=== PATIENT | female | born 1950 | race Two or more races ===

== ENCOUNTER 2020-07-08 12:14 | Observation (INO) | payer MEDICARE ==
--- NOTE | 2020-07-08 13:35 | XR ---
EXAMINATION TYPE: XR foot complete RT DATE OF EXAM: 07/08/2020 CLINICAL HISTORY: pain TECHNIQUE: Frontal, lateral and oblique images of the right foot are obtained. COMPARISON: None. FINDINGS: There is no acute fracture/dislocation evident. The joint spaces appear within normal le[place] its. The overlying soft tissue appears unremarkable. IMPRESSION: There is no acute fracture or dislocation. ICD 10 NO FRACTURE, INITIAL EVALUATION
[2020-07-08] MEDS ORDERED: RX INFO: IV CONTRAST WAS GIVEN 1 EACH MISC MISCELLANE PRN (14:56)
[2020-07-08 15:02] LABS: Basophils % (A) 1 %; Eosinophils # (A) 0.4 k/uL (0-0.7); Eosinophils % (A) 5 %; HCT 40.9 % (34.0-46.0); HGB 13.7 gm/dL (11.4-16.0); Lymphocytes # (A) 2.1 k/uL (1.0-4.8); Lymphocytes % (A) 29 %; MCH 28.5 pg (25.0-35.0); MCHC 33.5 g/dL (31.0-37.0); MCV 85.2 fL (80.0-100.0); Mean Platelet Volume 7.6; Monocytes # (A) 0.3 k/uL (0-1.0); Monocytes % (A) 5 %; Neutrophils # (A) 4.2 k/uL (1.3-7.7); Neutrophils % (A) 58 %; Platelet Count 296 k/uL (150-450); RDW 13.6 % (11.5-15.5); WBC 7.3 k/uL (3.8-10.6)
[2020-07-08] MEDS ORDERED: Acetaminophen-Codeine 300-30mg TAB PO STA (15:02)
[2020-07-08 15:07] LABS: ALT 18 U/L (4-34); AST 40 U/L (14-36); African American GFR (CKD) >90 (>60 ml/min/1.73 sqM); Alkaline Phosphatase 97 U/L (38-126); Anion Gap 7 mmol/L; Blood Urea Nitrogen 11 mg/dL (7-17); Calcium 9.4 mg/dL (8.4-10.2); Carbon Dioxide 25 mmol/L (22-30); Chloride 106 mmol/L (98-107); Glucose 98 mg/dL (74-99); Non-African American GFR(CKD) >90 (>60 ml/min/1.73 sqM); Potassium 4.3 mmol/L (3.5-5.1); Sodium 138 mmol/L (137-145); Total Bilirubin 0.7 mg/dL (0.2-1.3); Total Protein 8.3 g/dL (6.3-8.2)
[2020-07-08 15:09] LABS: Partial Thromboplastin Time 24.2 sec (22.0-30.0); Prothrombin Time 10.1 sec (9.0-12.0)
[2020-07-08] MEDS ORDERED: SODIUM CHLORIDE 0.9% 1,000 ML IV ONE (15:17)
--- NOTE | 2020-07-08 16:10 | ED ---
General Adult HPI - General Chief complaint: Extremity Problem,Nontraumatic Stated complaint: rt foot bruising Time Seen by Provider: 07/08/20 13:32 Source: patient, RN notes reviewed, old records reviewed Mode of arrival: wheelchair Limitations: no limitations - History of Present Illness Initial comments: 69-year-old female patient to ED for evaluation. Patient reports that the second and third toe on her right foot had blown purple and discolored for the last week and a half. She reports that when she lays down and that activity makes it becomes purple. When she walks around the color returned and the pain goes away. She denies any other areas of pain. She denies any other complaints. Systemic: Pt denies fatigue, fever/chills, rash. Pt denies weakness, night sweats, weight loss. Neuro: Pt denies headache, visual disturbances, syncope or pre-syncope. HEENT: Pt denies ocular discharge or irritation, otalgia, rhinorrhea, pha ryngitis or notable lymphadenopathy. Cardiopulmonary: Pt denies chest pain, SOB, heart palpitations, dyspnea on exertion. Abdominal/GI: Pt denies abdominal pain, n/v/d. : Pt denies dysuria, burning w/ urination, frequency/urgency. Denies new onset urinary or bowel incontinence. MSK: Pt denies myalgia, loss of strength or function in extremities. Neuro: Pt denies new onset weakness, paresthesias. - Related Data Allergies Allergy/AdvReac Type Severity Reaction Status Date / Time acetaminophen [From Vicodin] Allergy constipatio Verified 07/08/20 12:51 n celecoxib [From Celebrex] Allergy constipatio Verified 07/08/20 12:51 n hydrocodone [From Vicodin] Allergy constipatio Verified 07/08/20 12:51 n Review of Systems ROS Statement: Those systems with pertinent positive or pertinent negative responses have been documented in the HPI. ROS Other: All systems not noted in ROS Statement are negative. Past Medical History Past Medical History: No Reported History History of Any Multi-Drug Resistant Organisms: None Reported Past Surgical History: Tubal Ligation Past Psychological History: No Psychological Hx Reported Smoking Status: Never smoker Past Alcohol Use History: None Reported Past Drug Use History: None Reported General Exam - General Exam Comments Initial Comments: Constitutional: NAD, AOX3, Pt has pleasant affect. HEENT: NC/AT, trachea midline, neck supple, no lymphadenopathy. External ears appear normal, without discharge. Mucous membranes moist. Eyes PERRLA, EOM intact. There is no scleral icterus. No pallor noted. Cardiopulmonary: RRR, no murmurs, rubs or gallops, no JVD noted. Lungs CTAB in anterior and posterior singletary. No peripheral edema. Abdominal exam: Abdomen soft and non-distended. Abdomen non-tender to palpation in all 4 quadrants. Bowel sounds active in LLQ. No hepatosplenomegaly. No ecchymosis Neuro: CN II-XII grossly intact. No nuchal rigidity. No raccon eyes, no de la vega sign, no hemotympanum. No cervical spinal tenderness. MSK: second third toe on the right foot are purple and cyanotic appearing. Capillary refill is greater than 2 seconds however it is intact. There is tenderness to palpation.No posterior calf tenderness bilaterally, homans sign negative bilaterally. Posterior tibialis and radial pulse +2 bilaterally. Sens ation intact in upper and lower extremities. Full active ROM in upper and lower extremities, 5/5 stregnth. Limitations: no limitations Course Vital Signs 07/08/20 12:46 Temperature 97.5 F L Pulse Rate 81 Respiratory 20 Rate Blood Pressure 147/71 O2 Sat by Pulse 98 Oximetry Medical Decision Making - Medical Decision Making 69-year-old female patient GT for evaluation second third toe on right foot have been verbal cyanotic and painful for the last 10 days or so. Patient once skiagrapher today who recommended that she come to the emergency department b ecause she believed that it was vascular in nature. She will signs are stable, afebrile. EKG is nonischemic. CT angiography was obtained which did display subtotal to complete occlusion spinning the left proximal common iliac. Mean the bilateral trifurcation vessels of the mid leg. There is also a cystic lesion in the right ovary large krause cyst, possible lymphadenopathy around the kidney. Patient be admitted for vascular consultation. Patient was made aware findings. Case discussed and pt seen by Dr. Sims, Dr. Barone accepts admission. - Lab Data Result diagrams: 07/08/20 14:32 07/08/20 14:32 Lab Results 07/08/20 07/08/20 07/08/20 Range/Units 14:32 14:32 14:32 WBC 7.3 (3.8-10.6) k/uL RBC 4.80 (3.80-5.40) m/uL Hgb 13.7 (11.4-16.0) gm/dL Hct 40.9 (34.0-46.0) % MCV 85.2 (80.0-100.0) fL MCH 28.5 (25.0-35.0) pg MCHC 33.5 (31.0-37.0) g/dL RDW 13.6 (11.5-15.5) % Plt Count 296 (150-450) k/uL MPV 7.6 Neutrophils % 58 % Lymphocytes % 29 % Monocytes % 5 % Eosinophils % 5 % Basophils % 1 % Neutrophils # 4.2 (1.3-7.7) k/uL Lymphocytes # 2.1 (1.0-4.8) k/uL Monocytes # 0.3 (0-1.0) k/uL Eosinophils # 0.4 (0-0.7) k/uL Basophils # 0.0 (0-0.2) k/uL PT 10.1 (9.0-12.0) sec INR 1.0 (<1.2) APTT 24.2 (22.0-30.0) sec Sodium 138 (137-145) mmol/L Potassium 4.3 (3.5-5.1) mmol/L Chloride 106 (98-107) mmol/L Carbon Dioxide 25 (22-30) mmol/L Anion Gap 7 mmol/L BUN 11 (7-17) mg/dL Creatinine 0.65 (0.52-1.04) mg/dL Est GFR (CKD-EPI)AfAm >90 (>60 ml/min/1.73 sqM) Est GFR (CKD-EPI)NonAf >90 (>60 ml/min/1.73 sqM) Glucose 98 (74-99) mg/dL Calcium 9.4 (8.4-10.2) mg/dL Total Bilirubin 0.7 (0.2-1.3) mg/dL AST 40 H (14-36) U/L ALT 18 (4-34) U/L Alkaline Phosphatase 97 (38-126) U/L Total Protein 8.3 H (6.3-8.2) g/dL Albumin 4.0 (3.5-5.0) g/dL - EKG Data -: EKG Interpreted by Me (and Dr. Sims ) EKG Comments: Ventricular rate 81, CT interval 140, QRS 82, QT/QTC 386 is 448. Normal sinus rhythm, normal EKG, no concern for acute ischemia. Disposition Clinical Impression: Ischemic toe Disposition: ADMITTED IP TO THIS HOSP Condition: Serious Is patient prescribed a controlled substance at d/c from ED?: No Referrals: None,Stated [Primary Care Provider] - 1-2 days
--- NOTE | 2020-07-08 16:30 | CT ---
EXAMINATION TYPE: CT angio tho/abd W Run Off DATE OF EXAM: 07/08/2020 COMPARISON: NONE HISTORY: 69-year-old female, ischemic toe right foot, Discoloration to right sided toes TECHNIQUE: Contiguous axial scanning of the chest, abdomen and pelvis before and after administration of 125 ml Isovue-370 IV contrast. Bilateral lower extremity runoff was performed. Coronal and sagitt al reformats. 3-D reconstructions generated on a dedicated independent workstation. CT DLP: 1872.6 mGycm Automated exposure control for dose reduction was used. FINDINGS: CHEST: The heart is normal size without pericardial effusion. Aorta normal caliber with conventional vessel branching anatomy. Minimal atherosclerotic arch calcifi cations. No thoracic lymphadenopathy by CT size criteria. Some strandy atelectasis in the lower lungs. No consolidation or pleural effusion. ABDOMEN: Tiny hernia. Arterial phase imaging of the liver shows a lobulated 1.7 cm cyst along the central aspe ct of the liver. Early arterial phase imaging of the gallbladder, adrenal glands, kidneys, spleen, pa ncreas show no gross abnormality. No dilated small bowel, free fluid, or free air. Retroaortic left renal vein. At this same level, there is abnormal 2.3 x 1.2 cm soft tissue in the ao rtocaval region. Otherwise, no mesenteric or retroperitoneal lymphadenopathy seen. Normal appendix. Mild stool burden. Left-sided colonic diverticulosis, greatest in the sigmoid colon. No pericolonic inflammatory change. Mild to moderate atherosclerotic calcifications infrarenal abdominal aorta without aneurysm. PELVIS: Bladder partially distended. Uterus anteverted. Both ovaries are visualized. However, there is abnorm al complex cystic appearing lesion of the right ovary measuring 3.6 x 3.5 cm. Further pelvic ultrasou nd evaluation is recommended. Pelvic phlebolith. No abnormal fluid collection in the pelvis or pelvic lymphadenopathy. RIGHT: Mild segmental narrowing right common iliac artery secondary to atherosclerotic calcifications. Right external iliac artery is patent. TRAUMA THERAPIST and SFA are patent with minimal scattered atherosclerotic change. Right popliteal artery and tibial peroneal trunk as well as the anterior tibial artery takeoff are al l patent. The trifurcation vessels become diminutive at the midlung level and the peroneal artery is seen to ju st above the ankle. Two-vessel runoff via the anterior and posterior tibial arteries. Prominent degenerative change of the knee. LEFT: There is a 1.2 cm segment of subtotal to complete occlusion of the proximal left common iliac artery with reconstitution just after. Left external iliac artery, TRAUMA THERAPIST, SFA are patent with minimal scattered atelectatic change. Left popliteal artery and tibioperoneal trunk are patent as is the takeoff of the anterior tibial art sara. The trifurcation vessels become diminutive at the midlung level. Peroneal artery is seen to the ankle . Two-vessel runoff via the anterior and posterior tibial arteries. Degenerative changes at the knee. 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 BONES: Facet arthropathy lower lumbar spine. Moderate to advanced degenerative disc disease L4-L5 and L5-S1. IMPRESSION: VASCULATURE: 1. SUBTOTAL TO COMPLETE OCCLUSION SPANNING 1.2 CM INVOLVING THE PROXIMAL LEFT COMMON ILIAC ARTERY. TH E VESSEL RECONSTITUTES JUST AFTER THIS ABNORMAL SEGMENT. 2. ON BOTH SIDES, THE TRIFURCATION VESSELS BECOME DIMINUTIVE AT THE MID LEG LEVEL. PERONEAL ARTERIES ARE SEEN TO THE ANKLE OR JUST ABOVE THE ANKLE AND THERE IS TWO-VESSEL RUNOFF ON BOTH SIDES. MISC: 3. ABNORMAL 2.3 X 1.2 CM SOFT TISSUE IN THE AORTOCAVAL REGION AT THE LEVEL OF THE RETROAORTIC LEFT RE NAL VEIN. ABNORMAL LYMPHADENOPATHY/METASTATIC DISEASE NOT EXCLUDED AT THIS TIME. 4. COMPLEX CYSTIC LESION OF THE RIGHT OVARY MEASURING 3.6 X 2.5 CM. CYSTIC EPITHELIAL OVARIAN NEOPLAS M NOT EXCLUDED. PELVIC ULTRASOUND CAN BETTER CHARACTERIZE. 5. LEFT-SIDED COLONIC DIVERTICULOSIS WITHOUT ACUTE DIVERTICULITIS. DEGENERATIVE CHANGE OF THE KNEES A ND A MODERATE TO LARGE SIZED 6.4 X 4.4 CM WADE'S CYST CYST ON THE LEFT
[2020-07-08] MEDS ORDERED: ASPIRIN 325 MG TAB PO STA (16:47)
[2020-07-08] MEDS ORDERED: NALOXONE 0.4 MG/ML 1 ML VIAL IV PRN (17:46)
[2020-07-08] MEDS ORDERED: HYDROcodone/APAP 5-325MG 1 EACH TAB PO PRN (18:51)
--- NOTE | 2020-07-08 21:23 | P.HPIM ---
History of Present Illness H&P Date: 07/08/20 The patient is a 69-year-old female with no known PMH who presented to emergency room with complaints of right second toe discoloration and pain. The patient reports that her symptoms started a week and half ago and gradually worsened. She reports that the pain occurs anytime that she is not walking, comes on gradually, with her second toe becoming purple and numb at the tip. The pain is 9 out of 10 at maximal intensity, at which time the patient stands up and walks which resolves the discoloration, numbness, and the pain entirely. When the patient sits back down, the pain recurs after 30-45 minutes. She denied any similar prior episodes. The patient notes that she thought it was due to her ingrown toenail for which she went to her receiving associate store earlier today who immediately sent her to the emergency room. At time of the interview, she reported that her pain was a 4 out of 10 after having received medications. She denied any additional complaints. She denied calf or ankle pain. She denied chest pain, shortness of breath, palpitations, cough, fever, chills. Also denied abdominal pain, nausea, vomiting, diarrhea. Foot x-ray in the emergency room was unremarkable. CT angiogram of the thoracic and abdominal aorta with runoff revealed a subtotal to complete proximal left common iliac artery occlusion spanning 1.2 cm, mid level leg diminution of arteries bilaterally, an abnormal 2.3 centimeters soft tissue in the aortocaval region with malignancy not excluded, complex cystic lesion of the right ovary measuring 3.6 cm along with left-sided diverticulosis. EKG revealed normal sinus rhythm at [address]/T-wave changes noted as reviewed by me. Laboratory evaluation was reviewed. Review of Systems Pertinent positives and negatives as discussed in HPI, a complete review of systems was performed and all other systems are negative. Past Medical History Past Medical History: No Reported History History of Any Multi-Drug Resistant Organisms: None Reported Past Surgical History: Tubal Ligation Past Anesthesia/Blood Transfusion Reactions: No Reported Reaction Past Psychological History: No Psychological Hx Reported Smoking Status: Never smoker Past Alcohol Use History: None Reported Past Drug Use History: None Reported Medications and Allergies Home Medications Medication Instructions Recorded Confirmed Type No Known Home Medications 07/08/20 07/08/20 History Allergies Allergy/AdvReac Type Severity Reaction Status Date / Time celecoxib [From Celebrex] AdvReac constipatio Verified 07/08/20 18:52 n hydrocodone [From Vicodin] AdvReac constipatio Verified 07/08/20 18:52 n Physical Exam Vitals: Vital Signs Temp Pulse Pulse Resp BP BP Pulse Ox 07/08/20 19:06 98.6 F 96 16 151/59 96 07/08/20 18:22 98.2 F 77 19 132/70 96 07/08/20 12:46 97.5 F L 81 20 147/71 98 Intake and Output 07/08/20 07/08/20 07/08/20 06:59 14:59 22:59 Other: Weight 74.843 kg 74.843 kg General: non toxic, no distress, appears at stated age, obese Derm: no unusual rashes/lesions no unusual ecchymoses, warm, dry Head: atraumatic, normocephalic, symmetric Eyes: EOMI, no lid lag, anicteric sclera, pupils equal round reactive to light ENT: Nose and ears atraumatic, no thrush, no pharyngeal erythema Neck: No thyromegaly, no cervical lymphadenopathy, trachea midline, supple Mouth: no lip lesion, mucus membranes moist Cardiovascular: S1S2 reg, no murmur, 3+ dorsalis pedis and posterior tibial pulse bilateral, R 2nd toe purple discoloration with numbness and tenderness, surrounding tissue appears normal, no edema Lungs: CTA bilateral, no rhonchi, no rales , no accessory muscle use Abdominal: soft, nontender to palpation, no guarding, no appreciable organomegaly, normal bowel sounds Ext: no gross muscle atrophy, muscle strength 5 out of 5 in all 4 extremities grossly, no contractures, Neuro: CN II-XI grossly intact, light touch intact all 4 extremities, finger to nose within normal limits, Psych: Alert, oriented, appropriate affect Results CBC & Chem 7: 07/08/20 14:32 07/08/20 14:32 Labs: Abnormal Lab Results - Last 24 Hours (Table) 07/08/20 Range/Units 14:32 AST 40 H (14-36) U/L Total Protein 8.3 H (6.3-8.2) g/dL Thrombosis Risk Factor Assmnt - Choose All That Apply Any of the Below Risk Factors Present?: No Other Risk Factors: No Each Risk Factor Represents 2 Points: Age 61-74 years Other congenital or acquired thrombophilia - If yes, enter type in comment: No Thrombosis Risk Factor Assessment Total Risk Factor Score: 2 Thrombosis Risk Factor Assessment Level: Very Low Risk Assessment and Plan Plan: Ischemic R second toe -Discussed case with Vascular surgeon instructional design consultant -- recommended pain control for now. -Continue with Vascular checks -C/w ASA and Statin -Cardiac monitoring -Obtain Lipid panel Complex cyst of right ovary on CT angiogram with 2.3 cm aortocaval mass concerning for metastasis -Will refer patient for outpatient [employer]-Oncology evaluation (Dr Kwesi Hdz @ [facility]) DVT prophylaxis -Heparin subq The patient is admitted with an anticipated less than 2 midnight stay for evaluation of R ischemic toe CODE STATUS: Full Code Discussed with: Patient Anticipated discharge date: in am Anticipated discharge place: Home A total of 35 minutes was spent on the care of this complex patient more than 50% of the time was spent in counseling and care coordination.
[2020-07-08] MEDS ORDERED: traMADol 50 MG TAB PO STA (22:45)
[2020-07-08] MEDS: HEPARIN SODIUM,PORCINE 5,000 UNIT/ML 1 ML VIAL SQ SCH (22:52)
[2020-07-08] MEDS ORDERED: ATORVASTATIN 80 MG TAB PO ONE (23:00)
[2020-07-09] MEDS: HEPARIN SODIUM,PORCINE 5,000 UNIT/ML 1 ML VIAL SQ SCH ×2 (07:36→15:38)
[2020-07-09 08:54] LABS: Cholesterol 209 mg/dL (<200); HDL Cholesterol 55 mg/dL (40-60); LDL Cholesterol,Calculated 135 mg/dL (0-99); Triglycerides 94 mg/dL (<150)
--- NOTE | 2020-07-09 09:19 | P.GSCN ---
History of Present Illness Consult date: 07/09/20 Reason for Consult: Ischemic toes on right foot Requesting physician: Ramo Sher History of present illness: The patient is a 69-year-old female with no known PMH who presented to emergency room with complaints of right second toe discoloration and pain. The patient reports that her symptoms started a week and half ago and gradually worsened. She reports that the pain occurs anytime that she is not walking, comes on gradually, with her second toe becoming purple and numb at the tip. The pain is 9 out of 10 at maximal intensity, at which time the patient stands up and walks which resolves the discoloration, numbness, and the pain entirely. The patient states when she sits the pain returns. She denied any similar prior episodes. The patient notes that she thought it was due to her ingrown toenail for which she went to her medical technicians earlier today who immediately sent her to the emergency room. She denied any additional complaints. He denies any pain anywhere else in the right lower extremity, as well as denies any pain in the left lower extremity. She denied chest pain, shortness of breath, palpitations, cough, fever, chills. Also denied abdominal pain, nausea, vomiting, diarrhea. Foot x-ray in the emergency room was unremarkable. CT angiogram of the thoracic and abdominal aorta with runoff revealed a subtotal to complete proximal left common iliac artery occlusion spanning 1.2 cm, which reconstitutes just after this abnormal segment. On both sides there is trifurcation vessels become communicative at the midline level. Peroneal arteries are seen to the ankle or just above the ankle and there is two-vessel runoff on both sides. There is an abnormal 2.3 centimeters soft tissue in the aortocaval region with malignancy not excluded, complex cystic lesion of the right ovary measuring 3.6 cm along with left-sided diverticulosis. There is a 6. 4 x 4 x 4 cm moderate to large size Wade's cyst in the left knee. Laboratory evaluation was reviewed. Denies any other current symptoms such as shortness of breath, chest pain, or abdominal pain. Review of Systems A 14 point review of systems was completed and all pertinent positives and negat mike as stated in the HPI. Past Medical History Past Medical History: No Reported History History of Any Multi-Drug Resistant Organisms: None Reported Past Surgical History: Tubal Ligation Past Anesthesia/Blood Transfusion Reactions: No Reported Reaction Past Psychological History: No Psychological Hx Reported Smoking Status: Never smoker Past Alcohol Use History: None Reported Past Drug Use History: None Reported Medications and Allergies Home Medications Medication Instructions Recorded Confirmed Type No Known Home Medications 07/08/20 07/08/20 History Allergies Allergy/AdvReac Type Severity Reaction Status Date / Time celecoxib [From Celebrex] AdvReac constipatio Verified 07/08/20 18:52 n hydrocodone [From Vicodin] AdvReac constipatio Verified 07/08/20 18:52 n Surgical - Exam Vital Signs Temp Pulse Resp BP Pulse Ox 97.5 F L 81 20 147/71 98 07/08/20 12:46 07/08/20 12:46 07/08/20 12:46 07/08/20 12:46 07/08/20 12:46 General appearance: The patient is alert, oriented, in no acute distress. HET: Head is normocephalic and atraumatic. Pupils are equal and reactive. Oropharynx is clear without lesions. Neck: Supple without lymphadenopathy. Trachea midline. Heart: S1 S2. Regular rate and rhythm. Lungs: No crackles or wheezes are heard. Abdomen: Soft, nontender, nondistended with bowel sounds. Extremities: Bilateral posterior tibialis and dorsalis pedis palpable, however right greater than left. Capillary refill adequate at 3-5 seconds. The right foot second and third toe with purple discoloration and pain to palpation. Neurological: No focal deficits. Strength and sensation are grossly intact. Results CT angiogram thoracic and abdomen with runoff reviewed Right foot x-ray reviewed - Labs 07/08/20 14:32 07/08/20 14:32 Abnormal Lab Results - Last 24 Hours (Table) 07/08/20 07/09/20 Range/Units 14:32 07:52 AST 40 H (14-36) U/L Total Protein 8.3 H (6.3-8.2) g/dL Cholesterol 209 H (<200) mg/dL LDL Cholesterol, Calc 135 H (0-99) mg/dL Diabetes panel 07/08/20 07/09/20 Range/Units 14:32 07:52 Sodium 138 (137-145) mmol/L Potassium 4.3 (3.5-5.1) mmol/L Chloride 106 (98-107) mmol/L Carbon Dioxide 25 (22-30) mmol/L BUN 11 (7-17) mg/dL Creatinine 0.65 (0.52-1.04) mg/dL Glucose 98 (74-99) mg/dL Calcium 9.4 (8.4-10.2) mg/dL AST 40 H (14-36) U/L ALT 18 (4-34) U/L Alkaline Phosphatase 97 (38-126) U/L Total Protein 8.3 H (6.3-8.2) g/dL Albumin 4.0 (3.5-5.0) g/dL Triglycerides 94 (<150) mg/dL HDL Cholesterol 55 (40-60) mg/dL Calcium panel 07/08/20 Range/Units 14:32 Calcium 9.4 (8.4-10.2) mg/dL Albumin 4.0 (3.5-5.0) g/dL Pituitary panel 07/08/20 Range/Units 14:32 Sodium 138 (137-145) mmol/L Potassium 4.3 (3.5-5.1) mmol/L Chloride 106 (98-107) mmol/L Carbon Dioxide 25 (22-30) mmol/L BUN 11 (7-17) mg/dL Creatinine 0.65 (0.52-1.04) mg/dL Glucose 98 (74-99) mg/dL Calcium 9.4 (8.4-10.2) mg/dL Adrenal panel 07/08/20 Range/Units 14:32 Sodium 138 (137-145) mmol/L Potassium 4.3 (3.5-5.1) mmol/L Chloride 106 (98-107) mmol/L Carbon Dioxide 25 (22-30) mmol/L BUN 11 (7-17) mg/dL Creatinine 0.65 (0.52-1.04) mg/dL Glucose 98 (74-99) mg/dL Calcium 9.4 (8.4-10.2) mg/dL Total Bilirubin 0.7 (0.2-1.3) mg/dL AST 40 H (14-36) U/L ALT 18 (4-34) U/L Alkaline Phosphatase 97 (38-126) U/L Total Protein 8.3 H (6.3-8.2) g/dL Albumin 4.0 (3.5-5.0) g/dL Assessment and Plan Assessment: 1. Pain and right foot and toes 2. Discoloration of the second and third toes of the right foot 3. 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 Lozano. There are bilateral palpable pedal pulses. This is likely more related to microvascular, possible underlying infection from ingrown toenail. Will consult Dr. Cruz with podiatry. There are no acute findings to suggest any immediate need for any vascular surgical intervention. Further recommendations will follow. Thank you For this consultation and allowing us take part in the plan of care of your patient during her hospital stay. The impression and plan of care has been dictated as directed. Dr. Lozano I performed a history and examination of this patient, discussed the same with the dictator. I agree with the dictator's note ,documented as a scribe. Any additional findings or plans will be noted.
[2020-07-09] MEDS: HYDROcodone/APAP 10-325MG 1 EACH TAB PO PRN ×2 (11:17→17:29)
--- NOTE | 2020-07-09 16:04 | P.PN ---
Subjective Progress Note Date: 07/09/20 (delayed charting seen at 1030) Principal diagnosis: left toe pain Patient is a 69-year-old female with no known medical history who presented to the emergency department with complaints of right second toe pain and discoloration. She had presented to an outpatient psychiatrist who recommended she come to the ER. In the ER she underwent an extensive evaluation. Initial vital signs within normal limits, initial laboratory analysis was unremarkable. 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 A complex cystic lesion of the right ovary and left sided colonic diverticulosis. She was admitted for monitoring of her ischemic toes. She was seen by vascular surgery who felt this is likely related to microvascular possible underlying infection from ingrown toenail. They did not recommend any acute immediate need for vascular surgery intervention but did recommend podiatry consultation. 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 I suggested follow-up with gynecologic oncology. We have been able to make an appointment with Dr. Hdz on 07/14. Patient is unsure if she'll be able to follow up with this. She states even if she had cancer she would not want to do anything about it. I've encouraged her to seek follow-up. I've explained that she likely would benefit from a pelvic ultrasound and assessment of the tumor. She is aware of the possibility of cancer. Patient seen and examined at bedside. She continues to have some toe pain when her feet are raised in the air area in her pain and the discoloration of her toe improves when she is up and walking. She denies any chest pain, nausea, vomiting, weight loss, or abdominal pain. We did have a discussion that ovarian masses do not always cause pain. General: non toxic, no distress, appears older than stated age Derm: Right second and third toe with purplish discoloration, onychomycoses of toenails warm, dry Head: atraumatic, normocephalic, symmetric Eyes: EOMI, no lid lag, anicteric sclera Mouth: no lip lesion, mucus membranes moist Cardiovascular: S1S2 reg, no murmur, positive posterior tibial pulse bilateral, Lungs: CTA bilateral, no rhonchi, no rales , no accessory muscle use Abdominal: soft, nontender to palpation, no guarding, no appreciable orga nomegaly Ext: no gross muscle atrophy, no edema, no contractures Neuro: CN II-XI grossly intact, no focal neuro deficits Psych: Alert, oriented, appropriate affect Intractable pain right toes and feet with Kwesi Waters microvascular calcification -Vascular surgery recommendations appreciated -Consult podiatry regarding possible need for toenail removal -Pain control Right ovarian mass with soft tissue density near the aortocaval region -Nursing to prepare disc of computed tomography scan -Appointment made for Dr. Kwesi Hdz on 07/14 -I again reiterated the importance of follow-up with his appointment to the patient. Dyslipidemia -Statin therapy DVT prophylaxis: SCDs Discussed with: Patient, nursing Anticipated discharge: once seen by podiatry Anticipated discharge place: home A total of 45 minutes was spent on the care of this complex patient more than 50% of the time was spent in counseling and care coordination. Objective - Vital Signs Vital signs: Vital Signs Temp 97.8 F 07/09/20 14:46 Pulse 82 07/09/20 14:46 Resp 14 07/09/20 14:46 BP 150/76 07/09/20 14:46 Pulse Ox 98 07/09/20 14:46 Intake & Output 07/08/20 07/09/20 07/09/20 18:59 06:59 18:59 Weight 74.843 kg 74.843 kg Other: Voiding Method Toilet Toilet # Voids 1 2 - Labs CBC & Chem 7: 07/08/20 14:32 07/08/20 14:32 Labs: Abnormal Lab Results - Last 24 Hours (Table) 07/09/20 Range/Units 07:52 Cholesterol 209 H (<200) mg/dL LDL Cholesterol, Calc 135 H (0-99) mg/dL
[2020-07-09] MEDS ORDERED: ATORVASTATIN 80 MG TAB PO SCH (21:00)
[2020-07-10] MEDS: HYDROcodone/APAP 10-325MG 1 EACH TAB PO PRN (00:08)
[2020-07-10] MEDS: HEPARIN SODIUM,PORCINE 5,000 UNIT/ML 1 ML VIAL SQ SCH ×2 (00:09→08:55)
[2020-07-10 04:36] LABS: Hemoglobin A1C 5.4 % (4.0-6.0)
--- NOTE | 2020-07-10 08:40 | P.GSHP ---
History of Present Illness H&P Date: 07/10/20 Chief Complaint: Ischemic right foot he patient is a 69-year-old female with no known PMH who presented to emergency room with complaints of right second toe discoloration and pain. The patient reports that her symptoms started a week and half ago and gradually worsened. S he reports that the pain occurs anytime that she is not walking, comes on gradually, with her second toe becoming purple and numb at the tip. The pain is 9 out of 10 at maximal intensity, at which time the patient stands up and walks which resolves the discoloration, numbness, and the pain entirely. When the patient sits back down, the pain recurs after 30-45 minutes. She denied any similar prior episodes. The patient notes that she thought it was due to her ingrown toenail for which she went to her pecan gatherer earlier today who immediately sent her to the emergency room. At time of the interview, she reported that her pain was a 4 out of 10 after having received medications. She denied any additional complaints. She denied calf or ankle pain. She denied chest pain, shortness of breath, palpitations, cough, fever, chills. Also denied abdominal pain, nausea, vomiting, diarrhea. Foot x-ray in the emergency room was unremarkable. CT angiogram of the thoracic and abdominal aorta with runoff revealed a subtotal to complete proximal left common iliac artery occlusion spanning 1.2 cm, mid level leg diminution of arteries bilaterally, an abnormal 2.3 centimeters soft tissue in the aortocaval region with malignancy not excluded, complex cystic lesion of the right ovary measuring 3.6 cm along with left-sided diverticulosis. EKG revealed normal sinus rhythm at [address]/T-wave changes noted as reviewed by me. Laboratory evaluation was reviewed. - Constitutional Constitutional: Reports as per HPI - EENT Eyes: right as per HPI Ears, nose, mouth and throat: Reports as per HPI - Cardiovascular Comment: Patient has right Cardiovascular: Reports as per HPI - Musculoskeletal Musculoskeletal: Denies myalgias - Integumentary Comment: Patient has ischemic digits of the right second and third toes with mycotic changes to the nails 10 - Neurological Comment: Pain of the right foot secondary to ischemia Past Medical History Past Medical History: No Reported History History of Any Multi-Drug Resistant Organisms: None Reported Past Surgical History: Tubal Ligation Past Anesthesia/Blood Transfusion Reactions: No Reported Reaction Past Psychological History: No Psychological Hx Reported Smoking Status: Never smoker Past Alcohol Use History: None Reported Past Drug Use History: None Reported Medications and Allergies Home Medications Medication Instructions Recorded Confirmed Type No Known Home Medications 07/08/20 07/08/20 History Allergies Allergy/AdvReac Type Severity Reaction Status Date / Time celecoxib [From Celebrex] AdvReac constipatio Verified 07/08/20 18:52 n hydrocodone [From Vicodin] AdvReac constipatio Verified 07/08/20 18:52 n Surgical - Exam Vital Signs Temp Pulse Resp BP Pulse Ox 97.5 F L 81 20 147/71 98 07/08/20 12:46 07/08/20 12:46 07/08/20 12:46 07/08/20 12:46 07/08/20 12:46 - Cardiovascular Pedal pulses diminished nonpalpable no digital hair 10. Digits 2 and 3 of the right foot are ischemic painful - Neurologic pain of digits 23 right ffot - Musculoskeletal grossly intact bilateral Results - Labs 07/08/20 14:32 07/08/20 14:32 Abnormal Lab Results - Last 24 Hours (Table) 07/09/20 Range/Units 07:52 Cholesterol 209 H (<200) mg/dL LDL Cholesterol, Calc 135 H (0-99) mg/dL Diabetes panel 07/09/20 07/09/20 Range/Units 07:52 07:52 Hemoglobin A1c 5.4 (4.0-6.0) % Triglycerides 94 (<150) mg/dL HDL Cholesterol 55 (40-60) mg/dL Assessment and Plan Assessment: ischemic Disease right lower extremities Plan: cosult vascular for treatment discuss findings with patient Time with Patient: Greater than 30
[2020-07-10 09:24] VITALS: BP 162/77; PULSE 82; RESP 16; TEMP 98.1
[2020-07-10] MEDS ORDERED: Acetaminophen-Codeine 300-30mg TAB PO PRN (10:06)
--- NOTE | 2020-07-10 12:17 | P.PN ---
Subjective Progress Note Date: 07/10/20 Patient seen and examined. Overall doing well. Still having some pain in her right second and third toes. Objective - Vital Signs Vital signs: Vital Signs Temp 98.1 F 07/10/20 08:40 Pulse 82 07/10/20 08:40 Resp 16 07/10/20 08:40 BP 162/77 07/10/20 08:40 Pulse Ox 100 07/10/20 08:40 Intake & Output 07/09/20 07/10/20 07/10/20 18:59 06:59 18:59 Other: Voiding Method Toilet Toilet # Voids 2 1 - Exam Patient seen and examined. No acute distress. HEENT is normocephalic, atraumatic, excellent motion intact. Heart is regular. Lungs clear. Abdomen soft, nontender nondistended. Extremity show no clubbing, or edema. There continues to be palpable DP on the right, weakly palpable DP on the left. Cyanotic discoloration to the right second toe worse at the distal tip. Third toe slightly cyanotic, adequate capillary refill. - Labs CBC & Chem 7: 07/08/20 14:32 07/08/20 14:32 Assessment and Plan Assessment: #1 second and third right toe pain #2 toe discoloration #3 likely ovarian mass, cannot rule out malignancy Plan: This patient is wishing to go home, she still continues to believe it feels similar to her ingrown toe nails at that spot. She maintains palpable distal pulses therefore cannot fully exclude a microvascular issue, we will discuss podiatry regarding possibly removing the inguinal canals and if this does not seem to improve then go forth with the second and third toe amputations in the near future. She also really needs to follow up with Communications And Signals Supervisor onc. She seemingly understands this.
--- NOTE | 2020-07-10 17:59 | P.DS ---
Providers Date of admission: 07/08/20 17:48 Expected date of discharge: 07/10/20 Attending physician: Ainsley Sal, Consults: 07/08/20 17:46 Consult Physician Stat Consulting Provider: Delio Bradshaw Consult Reason/Comments: ischemic toe Do you want consulting provider notified?: Yes 07/09/20 08:39 Consult Physician Routine Consulting Provider: Moise Cruz Consult Reason/Comments: right 2nd and 3rd toe ischemia Do you want consulting provider notified?: Yes 07/10/20 09:10 Consult Physician Stat Consulting Provider: Cachorro Moncada Consult Reason/Comments: vascularity of 2nd and 3rd right toes. Do you want consulting provider notified?: Already Contacted Primary care physician: Stated None Hospital Course: Discharge Diagnosis: Intractable pain right toes, possible microvascular disease Right ovarian mass with soft tissue density near the aortocaval region Dyslipidemia Hospital Course: Patient is a 69-year-old female with no known medical history who presented to the emergency department with complaints of right second toe pain and discoloration. She had presented to an outpatient psychiatrist who recommended she come to the ER. In the ER she underwent an extensive evaluation. Initial vital signs within normal limits, initial laboratory analysis was unremarkable. 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 A complex cystic lesion of the right ovary and left sided colonic diverticulosis. She was admitted for monitoring of her ischemic toes. She was seen by vascular surgery who felt this is likely related to microvascular possible underlying infection from ingrown toenail. They did not recommend any acute immediate need for vascular surgery intervention but did recommend podiatry consultation, who recommended treatment by vascular surgery. Case discussed with Dr. Lozano. She has left message for [facility] outpatient fork lift technician regarding removing the inguinal canals, she will follow-up with the patient in the office next week for definitive management of the ischemic toes, with possible amputation if needed. The was a concerning finding of ovarian mass on the CT Aortagram. Extensive disucssion were had with the patient on the need for follow-up as this could be cancer. Patient understands. We have made her an appointment with staff readiness officer/ONC on 07/14. We have made her a copy of her CT scan and faxed the report to Dr. Hdz office. Patient's Tylenol #3 refilled to help with pain while awaiting definitive management of toes. Patient discharged in stable condition. Patient was also noted to have dyslipidemia in conjunction with possible vascular disease noted on the right area and she was started on Lipitor. Patient seen and examined at bedside. Toe pain unchanged, asking to go home, we discussed the significance of the large ovarian cysts with concerns for malignancy as well as soft tissue mass she seems to understand this could be cancerous and that follow-up is important. However she expresses that she may choose not to follow-up. I again reiterated that she needs to follow-up with gynecologic oncology we have already made her an appointment. I encouraged her to go to this appointment. Vital signs reviewed and stable. General: non toxic, no distress, appears at stated age Derm: right second and third toe with purple discoloration, onychomycoses of all toenails warm, dry Head: atraumatic, normocephalic, symmetric Eyes: EOMI, no lid lag, anicteric sclera Mouth: no lip lesion, mucus membranes moist Cardiovascular: S1S2 reg, no murmur, positive posterior tibial pulse bilateral, Lungs: CTA bilateral, no rhonchi, no rales , no accessory muscle use Abdominal: soft, nontender to palpation, no guarding, no appreciable organomegaly Ext: no gross muscle atrophy, no edema, no contractures Neuro: CN II-XI grossly intact, no focal neuro deficits Psych: Alert, oriented, appropriate affect A total of 30 minutes of time were spent preparing this complex discharge summary . Patient Condition at Discharge: Stable Plan - Discharge Summary Discharge Rx Participant: No New Discharge Prescriptions: New Atorvastatin [Lipitor] 80 mg PO HS #30 tab Acetaminophen-Codeine 300-30mg [Tylenol w/codeine #3] 1 each PO Q6HR PRN #28 tab PRN Reason: Pain Discharge Medication List Acetaminophen-Codeine 300-30mg [Tylenol w/codeine #3] 1 each PO Q6HR PRN #28 tab 07/10/20 [Rx] Atorvastatin [Lipitor] 80 mg PO HS #30 tab 07/10/20 [Rx] Follow up Appointment(s)/Referral(s): Jessica Lozano DO [STAFF PHYSICIAN] - 1 Week (Appointment TuesdayJuly 23 at 9AM at [facility] Kwesi Hdz MD [REFERRING] - 07/14/20 3:15 pm (The office is located inside of the cancer center. You will be seen on the first floor -- please look for Radiation Oncology. Dr. Hdz is only in the office once/month and WILL NOT be in the office in July. ) None,Stated [Primary Care Provider] - 1-2 days Activity/Diet/Wound Care/Special Instructions: Activity: as tolerated Diet: heart healthy Special Instructions: Please ensure follow-up for ovarian mass on 07/14. take DISC to follow up appointment Discharge Disposition: HOME SELF-CARE
== END 2020-07-10 14:24 | disposition home or self-care (01) ==
LOC: EC 12:14 → 1SOBS 17:48
PROVIDERS: ADMIT Internal Medicine; ATTEND Internal Medicine
DX: I99.8 Other disorder of circulatory system (principal); N83.291 Other ovarian cyst, right side; M79.674 Pain in right toe(s); E78.5 Hyperlipidemia, unspecified; K57.30 Diverticulosis of large intestine without perforation or abscess without bleeding; I74.5 Embolism and thrombosis of iliac artery; B35.1 Tinea unguium; M71.22 Synovial cyst of popliteal space [Baker], left knee; Z88.5 Allergy status to narcotic agent; Z88.8 Allergy status to other drugs, medicaments and biological substances
CPT/HCPCS: 96372 ×3; 96360; 99285; 36415; 93005; 80061; 80053; 85025; 85610; 85730; 83036; 73630; 75635; 71275; G0378 ×3; J1644 ×3; Q9967

== ENCOUNTER 2020-12-21 21:51 | Inpatient (IN) | payer MEDICARE ==
[2020-12-21] MEDS ORDERED: NALOXONE 0.4 MG/ML 1 ML VIAL IV PRN (23:09)
[2020-12-21] MEDS ORDERED: ONDANSETRON 4 MG/2 ML VIAL IVP PRN (23:09)
--- NOTE | 2020-12-21 23:09 | ED ---
Recheck HPI - General Chief Complaint: Recheck/Abnormal Lab/Rx Stated Complaint: Shoulder Pain Time Seen by Provider: 12/21/20 21:58 Source: patient, EMS, RN notes reviewed, old records reviewed Mode of arrival: EMS Limitations: no limitations - History of Present Illness Initial Comments: This is a 62-year-old female DF for evaluation. Patient presents for evaluation of recheck pain. Metastatic disease cancer pain severe dehydration and malnourishment. Patient transferred for treatment and evaluation. Patient herself states she is resting comfortably MD Complaint: abnormal lab, other (Pain control) -: unknown Returns Today for: persistent/worsening pain related to initial visit Symptoms Since Prior Visit: worsening pain Context: planned re-check Associated Symptoms: none Treatments Prior to Arrival: Given Pain Meds on - Related Data Home Medications Medication Instructions Recorded Confirmed Ibuprofen [Motrin Ib] 800 mg PO Q8H PRN 12/21/20 12/21/20 Allergies Allergy/AdvReac Type Severity Reaction Status Date / Time celecoxib [From Celebrex] AdvReac constipatio Verified 12/21/20 22:11 n hydrocodone [From Vicodin] AdvReac constipatio Verified 12/21/20 22:11 n Review of Systems ROS Statement: Those systems with pertinent positive or pertinent negative responses have been documented in the HPI. ROS Other: All systems not noted in ROS Statement are negative. Past Medical History Past Medical History: No Reported History Additional Past Medical History / Comment(s): Bone cancer, metasteatic cancer, rib fractures History of Any Multi-Drug Resistant Organisms: None Reported Past Surgical History: Tubal Ligation Past Anesthesia/Blood Transfusion Reactions: No Reported Reaction Past Psychological History: No Psychological Hx Reported Smoking Status: Never smoker Past Alcohol Use History: None Reported Past Drug Use History: None Reported General Exam Limitations: no limitations General appearance: alert, in no apparent distress Head exam: Present: atraumatic, normocephalic, normal inspection Eye exam: Present: normal appearance, PERRL, EOMI. Absent: scleral icterus, conjunctival injection, periorbital swelling ENT exam: Present: normal exam, mucous membranes moist Neck exam: Present: normal inspection. Absent: tenderness, meningismus, lymphadenopathy Respiratory exam: Present: normal lung sounds bilaterally. Absent: respiratory distress, wheezes, rales, rhonchi, stridor Cardiovascular Exam: Present: regular rate, normal rhythm, normal heart sounds. Absent: systolic murmur, diastolic murmur, rubs, gallop, clicks GI/Abdominal exam: Present: soft, normal bowel sounds. Absent: distended, tenderness, guarding, rebound, rigid Extremities exam: Present: normal inspection, full ROM, normal capillary refill. Absent: tenderness, pedal edema, joint swelling, calf tenderness Back exam: Present: normal inspection Neurological exam: Present: alert, oriented X3, CN II-XII intact Psychiatric exam: Present: normal affect, normal mood Skin exam: Present: warm, dry, intact, normal color. Absent: rash Course Vital Signs 12/21/20 22:00 Temperature 98.6 F Pulse Rate 110 H Respiratory 18 Rate Blood Pressure 146/87 O2 Sat by Pulse 94 L Oximetry - Reevaluation(s) Reevaluation #1: 12/21/20 23:08 Medical record is reviewed Reevaluation #2: 12/21/20 23:08 Transferring paperwork has been reviewed Reevaluation #3: 12/21/20 23:08 Patient states she feels comfortable currently - Consultations Consultation #1: Spoke with PMH will admit the patient Medical Decision Making - Medical Decision Making 62 female [place] with cancer pain and hypercalcemia dehydration. Patient be admitted for continued fluid resuscitation, pain control Disposition Clinical Impression: Metastatic disease, Cancer associated pain, Hypercalcemia Disposition: ADMITTED IP TO THIS [facility] Condition: Fair Is patient prescribed a controlled substance at d/c from ED?: No Referrals: None,Stated [Primary Care Provider] - 1-2 days
[2020-12-21] MEDS ORDERED: SODIUM CHLORIDE 0.9% 1,000 ML IV STA (23:10)
[2020-12-21] MEDS: DEXTROSE 5%-0.45% NACL 1,000 ML IV SCH (23:54)
[2020-12-21] MEDS: MORPHINE SULFATE 4 MG/ML SYRINGE IV PRN (23:54)
[2020-12-22] MEDS: MORPHINE SULFATE 4 MG/ML SYRINGE IV PRN ×3 (03:28→20:24)
[2020-12-22 05:07] LABS: Basophils # (A) 0.1 k/uL (0-0.2); Basophils % (A) 1 %; Eosinophils # (A) 0.3 k/uL (0-0.7); Eosinophils % (A) 4 %; HCT 34.7 % (34.0-46.0); HGB 11.6 gm/dL (11.4-16.0); Lymphocytes # (A) 1.5 k/uL (1.0-4.8); Lymphocytes % (A) 18 %; MCH 27.3 pg (25.0-35.0); MCHC 33.3 g/dL (31.0-37.0); MCV 81.9 fL (80.0-100.0); Mean Platelet Volume 7.2; Monocytes # (A) 0.5 k/uL (0-1.0); Monocytes % (A) 6 %; Neutrophils # (A) 5.9 k/uL (1.3-7.7); Neutrophils % (A) 70 %; Platelet Count 263 k/uL (150-450); RBC 4.24 m/uL (3.80-5.40); RDW 14.3 % (11.5-15.5); WBC 8.3 k/uL (3.8-10.6)
[2020-12-22 05:33] LABS: Albumin 3.2 g/dL (3.5-5.0); Calcium 11.8 mg/dL (8.4-10.2); Magnesium 1.5 mg/dL (1.6-2.3); Phosphorus 3.6 mg/dL (2.5-4.5); Potassium 3.2 mmol/L (3.5-5.1); Total Bilirubin 0.6 mg/dL (0.2-1.3)
[2020-12-22] MEDS: ENOXAPARIN 40 MG/0.4 ML SYRINGE SQ SCH (10:20)
[2020-12-22] MEDS: DEXTROSE 5%-0.45% NACL 1,000 ML IV SCH (10:49)
[2020-12-22] MEDS ORDERED: ALPRAZolam 0.25 MG TAB PO PRN (11:46)
[2020-12-22] MEDS ORDERED: TEMAZEPAM 15 MG CAP PO PRN (11:46)
[2020-12-22] MEDS ORDERED: Magnesium Replacement Protocol 1 EACH MISC MISCELLANE PRN (11:47)
[2020-12-22] MEDS ORDERED: Potassium Replacement Protocol 1 EACH MISC MISCELLANE PRN (11:47)
[2020-12-22] MEDS: KETOROLAC 15 MG/ML 1 ML VIAL IVP SCH ×2 (13:41→17:22)
[2020-12-22] MEDS: PANTOPRAZOLE 40 MG TABLET PO SCH (13:43)
[2020-12-22] MEDS: IOPAMIDOL CONTRAST (ORAL USE) VIAL PO PRN ×2 (15:09→15:56)
--- NOTE | 2020-12-22 15:33 | XR ---
EXAMINATION TYPE: XR chest 1V portable DATE OF EXAM: 12/22/2020 HISTORY: Shortness of breath. COMPARISON: None. TECHNIQUE: Single view of the chest is submitted. FINDINGS: Demonstrated are scattered senescent parenchymal change. Basilar atelectasis and/or infiltrates. The heart is stable. Hilar and mediastinal structures are within normal limits. Degenerative changes are seen of the dorsal spine. IMPRESSION: 1. Basilar atelectasis and/or infiltrates.
--- NOTE | 2020-12-22 16:14 | HP ---
HISTORY AND PHYSICAL DATE OF SERVICE: 12/22/2020 CHIEF COMPLAINTS: Back pain and shoulder pain. HISTORY OF PRESENT ILLNESS: This 70-year-old woman with a past medical history of multiple medical problems, including history of tubal ligation, was recently diagnosed to have apparently bone cancer. The patient had an ovarian mass as well as soft tissue abdomen. Patient was seen by Dr. Hdz in [facility] and was subsequently was referred to a [place] physician, according to the patient. But now the patient is in severe excruciating pain in the upper back area which is radiating to both sides, and the patient came to [facility] and was admitted for further evaluation and treatment. The patient also has severe dehydration and malnourishment. The patient was transferred for treatment and evaluation. There is no history of any fever, rigor or chills. No history of headache, loss of consciousness, seizures at this time. PAST MEDICAL HISTORY: History of recently diagnosed apparently metastatic ovarian cancer or bone cancer with rib fractures. History of tubal ligation. MEDICATIONS: Motrin 800 mg p.r.n. ALLERGIES: CELEBREX, VICODIN. FAMILY HISTORY: No history of heart disease or strokes in the family. SOCIAL HISTORY: No history of smoking. No history of alcohol intake. REVIEW OF SYSTEMS: ENT: No diminished hearing. No diminished vision. CARDIOVASCULAR SYSTEM: No angina, palpitations. RESPIRATORY SYSTEM: No cough, hemoptysis. GI: No nausea, vomiting, diarrhea. : As mentioned earlier. NERVOUS SYSTEM: No numbness, weakness. ALLERGY/IMMUNOLOGY: No asthma, hayfever. MUSCULOSKELETAL: As mentioned earlier. HEMATOLOGY/ONCOLOGY: No history of anemia. ENDOCRINE: No history of diabetes, hypothyroidism. CONSTITUTIONAL: As mentioned earlier. DERMATOLOGY: Negative. RHEUMATOLOGY: Negative. PSYCHIATRY: As mentioned earlier. PHYSICAL EXAMINATION: Patient alert and oriented x3. Pulse 94, blood pressure 136/80, respiration 18, temperature normal, pulse ox 97% on 2 L. HEENT: Conjunctivae normal. Oral mucosa moist. NECK: No jugular venous distention. No carotid bruit. No lymph node enlargement. CARDIOVASCULAR SYSTEM: S1, S2 muffled. No S3. No S4. RESPIRATORY SYSTEM: Breath sounds diminished at the bases. No rhonchi. No crackles. ABDOMEN: Obese, non-tender. No mass palpable. LEGS: No edema. No swelling. NERVOUS SYSTEM: Higher functions as mentioned earlier. Moves all 4 limbs. No focal motor or sensory deficit. LYMPHATICS: No lymph node palpable in neck, axillae or groin. SKIN: No ulcer, rash, bleeding. JOINTS: No active deforming arthropathy. EXAMINATION OF THE SPINE: Some tenderness in the T4-5 area present. JOINTS: No active deforming arthropathy. LABS: At this time CBC is within normal limits. Sodium 136, potassium 3.2. Calcium is 11.8. ASSESSMENT: 1. Severe back pain, upper back pain. Rule out multiple metastases or vertebral compression fracture. 2. Possible ovarian cancer or intraabdominal cancer with metastases. 3. Hyponatremia. 4. Hypokalemia. 5. Hypercalcemia, possibly secondary to malignancy. 6. Elevated random glucose. Rule out diabetes mellitus, type 2. 7. Hypomagnesemia. 8. Increased AST. 9. Obesity with body mass index 31.2. 10.History of tubal ligation. 11.FULL CODE. DISCUSSION AND RECOMMENDATIONS: In this 70-year-old woman who presented with multiple complex medical issues, we will monitor the patient closely, continue the current medications, continue symptomatic treatment. Otherwise, would recommend adding Toradol to the current regimen. Consult Dr. Calderon. Bone scan. I would also recommend a CT scan of the chest, abdomen and pelvis to ensure stability at this point. Otherwise, portable chest x-ray, DVT prophylaxis. Prognosis is guarded because of multiple complex medical issues. Further recommendations to follow. We will monitor and replace potassium and magnesium as well. MMODL / IJN: [id number] / MTDD
--- NOTE | 2020-12-22 17:27 | CT ---
EXAMINATION TYPE: CT ChestAbdPelvis wo con DATE OF EXAM: 12/22/2020 COMPARISON: CT abdomen pelvis yesterday HISTORY: Metastatic cancer CT DLP: mGycm Automated exposure control for dose reduction was used. Images were obtained from the thoracic inlet to the floor the pelvis with oral contrast only. FINDINGS: There is small bilateral pleural effusions. There is infiltrate and atelectasis at both lung bases. T here are multiple bilateral pulmonary nodules without calcification. The largest measures 10 mm at th e right posterior lung base. There is no mediastinal adenopathy. Thoracic aorta is atheromatous. There are no hilar masses. Heart size is normal. There is no pericardial effusion. Liver and spleen are intact. Gallbladder is intact. There is no pancreatic mass. Stomach is intact. T here is no adrenal mass. Kidneys have normal size. There is no hydronephrosis. Ureters are not dilate d. There is no retroperitoneal adenopathy. Abdominal aorta is atheromatous. Bladder distends smoothly . There is no inguinal hernia. Uterus is anteverted. There is no free fluid in the pelvis. There is n o evidence of a pelvic mass. Right ovary measures 3.5 cm in diameter. Appendix is posterior and appea rs normal. There is no mesenteric edema. There is no ascites or free air. There is no bowel obstruction. There i s some lucency at the posterior aspect of the T9 vertebral body. There is similar change in the poste rior superior aspect of the T5 vertebral body. The sternum is intact. There are other smaller lucent areas in the thoracic and lumbar spine. There is some lytic change in the posterior aspect L2 vertebr al body. There is 1.5 cm lytic focus in the left iliac bone. There is 2.3 cm lytic area in the hoof and shoe inspector ior left side of the S2 vertebra. There is 1.5 cm lytic area in the right iliac bone close to the SI joint. There are multiple lytic foci in the ribs with soft tissue mass. It is suggestive of pathologi c fracture and multiple myeloma. IMPRESSION: Multiple osteolytic foci suggestive of metastatic disease or multiple myeloma. Bilateral lower lobe patchy infiltrate and atelectasis not significantly different than exam yesterda y. Multiple small pulmonary nodules could relate to metastatic disease
--- NOTE | 2020-12-22 19:33 | P.CONS ---
History of Present Illness - Reason for Consult Consult date: 12/22/20 Concern of metastatic Cancer Requesting physician: Yordy Danielson - Chief Complaint Fever - History of Present Illness Mrs. Mensah is a 70 year old female who presented to emergency room in 2019 with complaints of right second toe discoloration and pain. During that time a CT incidently revealed right ovarian cystic structure with possible abdominal adenopathy. She was referred to Dr. Hdz (gynonc ) at [facility] who, per patient, stated that is was not suspicious for cancer and therefore she held of surgery due to the current pandemic. She now presents with complaints of chest tightness and pain. She was seen at [facility] in ER first which showed concern of multiple subcentimeters bilateral pulm nodules and bone lesions. She was later transferred to [facility] for further work-up and concern of a metastatic process. Review of Systems All systems: negative Constitutional: Reports as per HPI Past Medical History Past Medical History: No Reported History Additional Past Medical History / Comment(s): Bone cancer, metasteatic cancer, rib fractures History of Any Multi-Drug Resistant Organisms: None Reported Past Surgical History: Tubal Ligation Past Anesthesia/Blood Transfusion Reactions: No Reported Reaction Past Psychological History: No Psychological Hx Reported Smoking Status: Never smoker Past Alcohol Use History: None Reported Past Drug Use History: None Reported - Past Family History Father Family Medical History: No Reported History Additional Family Medical History / Comment(s): Father is healthy and 84 yrs old. Mother Family Medical History: CVA/TIA Additional Family Medical History / Comment(s): CVA Medications and Allergies Home Medications Medication Instructions Recorded Confirmed Type Ibuprofen [Motrin Ib] 800 mg PO Q8H PRN 12/21/20 12/21/20 History Allergies Allergy/AdvReac Type Severity Reaction Status Date / Time celecoxib [From Celebrex] AdvReac constipatio Verified 12/21/20 22:11 n hydrocodone [From Vicodin] AdvReac constipatio Verified 12/21/20 22:11 n Physical Exam Vitals: Vital Signs Temp Pulse Resp BP Pulse Ox 12/22/20 07:00 95 18 137/71 95 12/22/20 03:00 98 139/79 95 12/22/20 01:00 110 H 18 145/80 98 12/22/20 00:00 110 H 18 133/83 93 L 12/21/20 22:00 98.6 F 110 H 18 146/87 94 L Intake and Output 12/21/20 12/22/20 12/22/20 22:59 06:59 14:59 Other: Weight 74.843 kg - Constitutional General appearance: cooperative, no acute distress - EENT Eyes: EOMI ENT: NA/AT, normal oropharynx - Neck Neck: normal ROM - Respiratory Respiratory: bilateral: diminished - Cardiovascular Rhythm: regular - Gastrointestinal General gastrointestinal: soft - Integumentary Integumentary: pale - Musculoskeletal Musculoskeletal: generalized weakness - Psychiatric Psychiatric: A&O x's 3, appropriate affect Results CBC & Chem 7: 12/23/20 09:41 12/23/20 09:41 Labs: Abnormal Lab Results - Last 24 Hours (Table) 12/22/20 Range/Units 04:39 Sodium 136 L (137-145) mmol/L Potassium 3.2 L (3.5-5.1) mmol/L Carbon Dioxide 31 H (22-30) mmol/L BUN 18 H (7-17) mg/dL Glucose 136 H (74-99) mg/dL Calcium 11.8 H (8.4-10.2) mg/dL Magnesium 1.5 L (1.6-2.3) mg/dL AST 49 H (14-36) U/L Albumin 3.2 L (3.5-5.0) g/dL CT scan - abdomen: report reviewed CT scan - chest: report reviewed CT scan - pelvis: report reviewed Assessment and Plan (1) Pulmonary nodules Current Visit: Yes Status: Acute Code(s): R91.8 - OTHER NONSPECIFIC ABNORMAL FINDING OF LUNG FIELD SNOMED Code(s): 087796208 (2) Hypercalcemia Current Visit: Yes Status: Acute Code(s): E83.52 - HYPERCALCEMIA SNOMED Code(s): 32744395 Plan: Assessment and Recommendations: Multiple SubCentimeter Pulmonary Nodules - Likely too small to biopsy Lesions suspicious of malignancy in bones seen on CT: - Bone scan Ordered HYpercalcemia: - IV Hysration - Await Calcium levels in am, possible Aredia or ZOmeta if still increased after IV Hydration Physician Attest: I have completed the full history and physical and agree with above dictation, dictated as a ascribe
[2020-12-22] MEDS: POTASSIUM CHLORIDE ER 20 MEQ TAB.ER PO SCH (22:33)
[2020-12-23] MEDS: KETOROLAC 15 MG/ML 1 ML VIAL IVP SCH ×4 (00:30→16:52)
[2020-12-23] MEDS: POTASSIUM CHLORIDE ER 20 MEQ TAB.ER PO SCH (00:31)
[2020-12-23] MEDS: DEXTROSE 5%-0.45% NACL 1,000 ML IV SCH ×2 (01:56→05:29)
[2020-12-23] MEDS ORDERED: MAGNESIUM SULFATE-D5W PMX 1 GM in DEXTROSE/WATER 1 100ML.BAG IVPB ONE (02:29)
[2020-12-23 02:32] LABS: Cancer Antigen 125 276.6 U/mL (0.0-30.1)
[2020-12-23] MEDS: MORPHINE SULFATE 4 MG/ML SYRINGE IV PRN ×4 (02:35→19:42)
[2020-12-23] MEDS: PANTOPRAZOLE 40 MG TABLET PO SCH (09:22)
[2020-12-23] MEDS: ENOXAPARIN 40 MG/0.4 ML SYRINGE SQ SCH (09:22)
[2020-12-23 10:20] LABS: Basophils % (A) 1 %; Eosinophils % (A) 11 %; HCT 34.5 % (34.0-46.0); HGB 11.6 gm/dL (11.4-16.0); Lymphocytes # (A) 1.7 k/uL (1.0-4.8); Lymphocytes % (A) 20 %; MCH 27.5 pg (25.0-35.0); MCHC 33.7 g/dL (31.0-37.0); MCV 81.5 fL (80.0-100.0); Mean Platelet Volume 7.4; Monocytes # (A) 0.4 k/uL (0-1.0); Monocytes % (A) 5 %; Neutrophils # (A) 5.5 k/uL (1.3-7.7); Neutrophils % (A) 64 %; Platelet Count 275 k/uL (150-450); RBC 4.23 m/uL (3.80-5.40); RDW 14.2 % (11.5-15.5); WBC 8.6 k/uL (3.8-10.6)
[2020-12-23 10:47] LABS: Magnesium 1.8 mg/dL (1.6-2.3); Potassium 3.7 mmol/L (3.5-5.1); Total Bilirubin 0.8 mg/dL (0.2-1.3); Total Protein 6.7 g/dL (6.3-8.2)
[2020-12-23 13:26] VITALS: BMI 31.1
--- NOTE | 2020-12-23 14:14 | NM ---
EXAMINATION TYPE: NM bone scan whole body DATE OF EXAM: 12/23/2020 COMPARISON: CT from yesterday HISTORY: History of metastatic cancer. Recent abnormal CT. Delayed whole-body scanning was performed following the injection of 25.3 mCi Tc 99m MDP. Images acq uired 5 hours post injection. Whole body anterior frontal images along with additional projections of the head neck thorax abdomen and pelvis are all acquired. FINDINGS: Increased radiotracer uptake lateral right mid ribs corresponds to a destructive lytic lesions with s oft tissue masses at this level. Findings more prominent on CT versus bone scan due to lytic lesions. There are additional areas of involvement scattered throughout the left-sided ribs corresponding to destructive lytic lesions with soft tissue masses on CT. Multifocal areas of increased radiotracer uptake through the calvarium are present. No CT correlate. Presume additional lytic lesions are present at this level. Increased uptake left hip at level of greater trochanter corresponds to subtle lucent area without co rtical breakthrough. Increased uptake medial tibiofemoral compartment bilateral knees likely reflects moderate to advanced osteoarthritic change, correlate clinically. IMPRESSION: As above. Findings consistent with diffuse lytic osseous metastatic disease or multiple m yeloma. Presence of multifocal calvarial uptake would increase suspicion for multiple myeloma. Correl ate clinically.
[2020-12-23] MEDS: SODIUM CHLORIDE 0.9% 1,000 ML IV SCH (14:34)
[2020-12-23 14:43] LABS: Appearance,Urine Cloudy (Clear); Bacteria,Urine Rare /hpf; Bilirubin,Urine Negative (Negative); Blood,Urine Small (Negative); Budding Yeast,Urine Many /hpf; Color,Urine Light Yellow; Glucose,Urine (UA) Negative (Negative); Ketones,Urine Negative (Negative); Leukocyte Esterase,Urine Moderate (Negative); Mucus,Urine Rare /hpf; Nitrite,Urine Negative (Negative); PH, Urine 6.5 (5.0-8.0); Protein,Urine Negative (Negative); RBC,Urine 14 /hpf (0-5); Specific Gravity,Urine 1.009 (1.001-1.035); Squamous Epithelial Cell,Urine <1 /hpf (0-4); Urobilinogen,Urine <2.0 mg/dL (<2.0); WBC,Urine 18 /hpf (0-5)
--- NOTE | 2020-12-23 16:19 | CT ---
EXAMINATION TYPE: CT brain wo con DATE OF EXAM: 12/23/2020 COMPARISON: None HISTORY: Mets. CT DLP: 1078.[address] of the brain was performed. The ventricles, basal cisterns and sulci overlying the cerebral convexities demonstrate mild enlargem ent. There is no evidence for intracranial hemorrhage or sulcal effacement. There is decreased attenuation about the periventricular white matter and deep white matter of both c erebral hemispheres, compatible with chronic small vessel ischemia. Differential diagnosis does inclu de demyelination. No mass effects are seen.No midline shift. Osseous calvarium is intact. If symptoms persist consider MRI. IMPRESSION: 1. Age related atrophic and chronic small vessel ischemic change without acute intracranial process s een at this time.
--- NOTE | 2020-12-23 16:40 | PN ---
PROGRESS NOTE DATE OF SERVICE: 12/23/2020 This 70-year-old woman who was admitted with severe back pain, upper back pain is being evaluated for rule out metastatic disease. The CT scan of the chest, abdomen and pelvis was done which showed multiple osteolytic foci suggestive of metastatic disease compatible with multiple myeloma; bilateral lower lobe patchy infiltrate and atelectasis also noted; multiple small pulmonary nodules also noted suggestive of metastatic disease. Hematology/Oncology is following the patient closely. The patient is being closely monitored at this time. The patient is slated to have a bone scan. PAST MEDICAL HISTORY: Reviewed. REVIEW OF SYSTEMS: CARDIOVASCULAR SYSTEM: No angina. RESPIRATORY SYSTEM: As mentioned earlier. GI: As mentioned earlier. MUSCULOSKELETAL: As mentioned earlier. CURRENT MEDICATIONS ARE: Current medications are reviewed and include Xanax, Dextrose, Lovenox, Toradol, magnesium replacement protocol and Narcan. PHYSICAL EXAMINATION: The patient is alert and oriented x3. Pulse is 98, blood pressure 121/72, respirations 16, temperature 98 degrees, pulse ox 98% on 2 L. HEENT: Conjunctivae normal. NECK: No jugular venous distention. CARDIOVASCULAR: S1, S2 muffled. RESPIRATORY: Breath sounds are diminished at the bases. A few scattered rhonchi. ABDOMEN: Soft, nontender. LEGS: No edema. No swelling. NERVOUS SYSTEM: No focal deficits. LABS: Sodium 133 and calcium is 12. ASSESSMENT: 1. Severe back pain and diffuse bony metastasis with metastatic malignancy of unknown primary. 2. Rule out multiple myeloma. 3. Possible ovarian cancer or intraabdominal cancer with metastasis. 4. Hyponatremia. 5. Hypokalemia. 6. Hypercalcemia possibly secondary to malignancy. 7. Elevated random glucose. Rule out diabetes mellitus type 2. 8. Hypomagnesemia. 9. Increased AST. 10.Obesity with body mass index of 31.2. 11.History of tubal ligation. 12.FULL CODE. RECOMMENDATIONS AND DISCUSSION: Recommend to continue current medications, continue symptomatic treatment. CT scan noted. Myeloma panel has been ordered by Hematology/Oncology. Repeat labs. Potassium is replaced. The patient still has hypercalcemia might need IV fluids and pamidronate. Further recommendations to follow. Continue the pain medications. See orders for details. MMODL / IJN: [id number] /
[2020-12-23] MEDS ORDERED: SODIUM CHLORIDE 0.9% 250 ML with PAMIDRONATE 60 MG IV ONE ×2 (18:30)
--- NOTE | 2020-12-23 18:35 | P.PN ---
Subjective Progress Note Date: 12/23/20 Principal diagnosis: COncern of metastatic Cancer Review of work-up this far: CT scan without contrast c/a/p did not reveal report the prior reported adenopathy or ovarian mass, will discuss with radiaology tomorrow as the concern is suspicious for metastatic ovarian cancer. Bone scan reveals concern of multiple lesions in bone, Right hip (which is near location of right complex cyst noted on prior imaging). CT brain is negative. Discussed with daughter. CA 125 is over 200 Objective - Vital Signs Vital signs: Vital Signs Temp 96.3 F L 12/23/20 16:00 Pulse 101 H 12/23/20 16:00 Resp 16 12/23/20 16:00 BP 123/72 12/23/20 16:00 Pulse Ox 99 12/23/20 16:00 Intake & Output 12/22/20 12/23/20 12/23/20 18:59 06:59 18:59 Intake Total 1580 1400 Balance 1580 1400 Weight 74.843 kg 74.843 kg Intake: Intake, IV Titration 600 900 Amount Dextrose 5%-0.45% NaCl 1, 600 800 000 ml @ 100 mls/hr IV . Q10H ADAM Rx#:[id number] Magnesium Sulfate-D5w Pmx 100 1 gm In Dextrose/Water 1 100ml.bag @ 100 mls/hr IVPB ONCE ONE Rx#: [id number] Oral 980 500 Other: Voiding Method Bedside Commode Bedside Commode Bedside Commode # Voids 15 4 - Exam - Constitutional General appearance: cooperative, no acute distress - EENT Eyes: EOMI ENT: NA/AT, normal oropharynx - Neck Neck: normal ROM - Respiratory Respiratory: bilateral: diminished - Cardiovascular Rhythm: regular - Gastrointestinal General gastrointestinal: soft - Integumentary Integumentary: pale - Musculoskeletal Musculoskeletal: generalized weakness - Psychiatric Psychiatric: A&O x's 3, appropriate affect - Labs CBC & Chem 7: 12/23/20 09:41 12/23/20 09:41 Labs: Abnormal Lab Results - Last 24 Hours (Table) 12/22/20 12/22/20 12/23/20 Range/Units 04:39 04:39 09:41 Eosinophils # (0-0.7) k/uL Sodium 133 L (137-145) mmol/L Chloride 97 L (98-107) mmol/L Carbon Dioxide 35 H (22-30) mmol/L Glucose 109 H (74-99) mg/dL Calcium 12.0 H (8.4-10.2) mg/dL AST 60 H (14-36) U/L Albumin 3.0 L (3.5-5.0) g/dL CA 125 Antigen 276.6 H (0.0-30.1) U/mL PTH Intact 6.4 L (14.0-72.0) pg/mL Urine Appearance (Clear) Urine Blood (Negative) Ur Leukocyte Esterase (Negative) Urine RBC (0-5) /hpf Urine WBC (0-5) /hpf Urine Bacteria (None) /hpf Urine Mucus (None) /hpf Urine Yeast (Budding) (None) /hpf 12/23/20 12/23/20 Range/Units 09:41 14:09 Eosinophils # 1.0 H (0-0.7) k/uL Sodium (137-145) mmol/L Chloride (98-107) mmol/L Carbon Dioxide (22-30) mmol/L Glucose (74-99) mg/dL Calcium (8.4-10.2) mg/dL AST (14-36) U/L Albumin (3.5-5.0) g/dL CA 125 Antigen (0.0-30.1) U/mL PTH Intact (14.0-72.0) pg/mL Urine Appearance Cloudy H (Clear) Urine Blood Small H (Negative) Ur Leukocyte Esterase Moderate H (Negative) Urine RBC 14 H (0-5) /hpf Urine WBC 18 H (0-5) /hpf Urine Bacteria Rare H (None) /hpf Urine Mucus Rare H (None) /hpf Urine Yeast (Budding) Many H (None) /hpf Assessment and Plan (1) Pulmonary nodules Current Visit: Yes Status: Acute Code(s): R91.8 - OTHER NONSPECIFIC ABNORMAL FINDING OF LUNG FIELD SNOMED Code(s): 602147709 (2) Hypercalcemia Current Visit: Yes Status: Acute Code(s): E83.52 - HYPERCALCEMIA SNOMED Code(s): 29605621 Plan: Assessment and Recommendations: Multiple SubCentimeter Pulmonary Nodules - Likely too small to biopsy Lesions suspicious of malignancy in bones seen on CT: - Bone scan Oreviewed with patient and daughter - Will order Biopsy right hip with IR HYpercalcemia: - IV Hysration - Await Calcium levels in am, possible Aredia or ZOmeta if still increased after IV Hydration - Aredia ordered today Ca125 increased
[2020-12-23] MEDS: SENNOSIDES-DOCUSATE SODIUM 1 EACH TAB PO SCH (22:33)
[2020-12-24] MEDS: MORPHINE SULFATE 4 MG/ML SYRINGE IV PRN ×4 (01:08→12:24)
[2020-12-24] MEDS: SODIUM CHLORIDE 0.9% 1,000 ML IV SCH ×2 (03:46→07:39)
[2020-12-24] MEDS: SENNOSIDES-DOCUSATE SODIUM 1 EACH TAB PO SCH ×2 (07:38→20:30)
[2020-12-24] MEDS: ENOXAPARIN 40 MG/0.4 ML SYRINGE SQ SCH (07:39)
[2020-12-24] MEDS: PANTOPRAZOLE 40 MG TABLET PO SCH (07:39)
[2020-12-24 08:45] LABS: INR 1.1 (<1.2); Prothrombin Time 11.4 sec (9.0-12.0)
--- NOTE | 2020-12-24 12:24 | P.PN ---
Subjective Progress Note Date: 12/24/20 Principal diagnosis: COncern of metastatic Cancer Case discussed with IR this am and Right bone lesion is too Fragile for biopsy, recommendation of left iliac due to the inconsistency on bone scan of lesion identified on rib She returns from her biopsy, I discussed with nursing and her pain is not well controlled. We will add a long acting pain medication. We will also ask ortho to evaluate for weight bearing and radiation oncologist for palliaitive radiation to hip and for pain. Objective - Vital Signs Vital signs: Vital Signs Temp 98.1 F 12/24/20 08:00 Pulse 111 H 12/24/20 08:00 Resp 18 12/24/20 01:58 BP 155/84 12/24/20 08:00 Pulse Ox 89 L 12/24/20 08:00 Intake & Output 12/23/20 12/24/20 12/24/20 18:59 06:59 18:59 Weight 74.843 kg Other: Voiding Method Bedside Commode Bedside Commode Bedside Commode # Voids 2 5 - Exam - Constitutional General appearance: cooperative, no acute distress - EENT Eyes: EOMI ENT: NA/AT, normal oropharynx - Neck Neck: normal ROM - Respiratory Respiratory: bilateral: diminished - Cardiovascular Rhythm: regular - Gastrointestinal General gastrointestinal: soft - Integumentary Integumentary: pale - Musculoskeletal Musculoskeletal: generalized weakness - Psychiatric Psychiatric: A&O x's 3, appropriate affect - Labs CBC & Chem 7: 12/23/20 09:41 12/23/20 09:41 Labs: Abnormal Lab Results - Last 24 Hours (Table) 12/23/20 12/23/20 Range/Units 09:41 14:09 Total Protein (PEP) 6.0 L (6.2-8.2) g/dL Urine Appearance Cloudy H (Clear) Urine Blood Small H (Negative) Ur Leukocyte Esterase Moderate H (Negative) Urine RBC 14 H (0-5) /hpf Urine WBC 18 H (0-5) /hpf Urine Bacteria Rare H (None) /hpf Urine Mucus Rare H (None) /hpf Urine Yeast (Budding) Many H (None) /hpf Assessment and Plan (1) Pulmonary nodules Current Visit: Yes Status: Acute Code(s): R91.8 - OTHER NONSPECIFIC ABNORMAL FINDING OF LUNG FIELD SNOMED Code(s): 147281421 (2) Hypercalcemia Current Visit: Yes Status: Acute Code(s): E83.52 - HYPERCALCEMIA SNOMED Code(s): 78832894 Plan: Assessment and Recommendations: Multiple SubCentimeter Pulmonary Nodules - Likely too small to biopsy Lesions suspicious of malignancy in bones seen on CT: - Bone scan reviewed with patient and daughter - Will order Biopsy right hip with IR HYpercalcemia: - IV Hydration - Await Calcium levels in am, possible Aredia or ZOmeta if still increased after IV Hydration - Aredia ordered today Ca125 increased concern of metastatic cancer biopsy today left is iliac discussed with IR and plan today biopsy I spoke daughter and informed and she agrees with plan. Plan: - Radiation oncology consult for palliaitive radiation - Ortho consult for rec on weight bearing or other measures, lytic lesion right hip ?impending fracture? - Add long acting Fentanyl and chage breakthrough adding PO breakthrough for pain control after discharge - Narcotic induced constipation risk discussed and prophylaxic senna - s BID added
--- NOTE | 2020-12-24 13:24 | CT ---
EXAMINATION TYPE: CT biopsy bone superficial DATE OF EXAM: 12/24/2020 COMPARISON: 12/22/2020 HISTORY: Destructive left iliac mass CT DLP: 1071 mGycm The procedure is discussed with the patient, the risks, complications, benefits and alternatives, wer e discussed and any questions were answered. Informed consent was obtained. The patient is placed p milagros on the CT table, prepped and draped in the usual sterile fashion. Utilizing a 18-gauge core biopsy needle access into left iliac bone destructive mass was achieved wit h 2 samples obtained. Pathology pending. All elements of maximal barrier technique were utilized. The patient remained stable throughout the procedure with no immediate postprocedural complication. IMPRESSION: 1. Successful CT guided fine needle aspiration of a left iliac bone mass. 2. incidental note is made of a right ovarian mass.
[2020-12-24] MEDS ORDERED: HYDROmorphone 1 MG/ML 1 ML SYRINGE IVP PRN (13:45)
[2020-12-24 14:49] LABS: Gamma Globulin 1.31 g/dL (0.70-1.50)
[2020-12-24 15:05] LABS: Free Kappa Lt Chain Qnt, Serum 4.38 mg/dL (0.33-1.94)
--- NOTE | 2020-12-24 21:09 | P.PN ---
Subjective This is a pleasant 70 years old female who was transferred from [facility] for hypercalcemia and left and right rib fracture and metastatic bone lesions suspected. When I saw the patient today she just came from her bone biopsy and she was sleeping and she could not provide information that was obtained from staff and records Looks like patient was complaining of from some chest tightness and workup showed some subcentimeter pulmonary nodules. Also she's been complaining of from some urinary symptoms and urgency, urinalysis is suspicious for infection therefore urine culture is requested and ceftriaxone was started. CEA-125 increased to, CT of the brain is negative for acute process. Chest x- ray showed bilateral atelectasis versus infiltrate Bone scan showing right mid ribs and left ribs lytic lesions coincided with soft tissue masses on CAT scan. Multiple lesions of the calvarium and left hip and multiple myeloma suspected per radiologist CT of the abdomen and pelvis and chest without contrast showed multiple pulmonary nodules, T5 and T10 lucencies and 1.5 cm lytic lesions in the left iliac bone Currently calcium is 12. And she is on pamidronate drip as well as normal splint 100 mL per hour and ceftriaxone as above Review of systems: N/a Active Medications Generic Name Dose Route Start Last Admin Trade Name Freq PRN Reason Stop Dose Admin Alprazolam 0.25 mg 12/22/20 11:46 Alprazolam 0.25 Mg Tab PO TID PRN Anxiety Enoxaparin Sodium 40 mg 12/22/20 09:00 12/24/20 07:39 Enoxaparin 40 Mg/0.4 Ml Syringe SQ 40 mg DAILY ADAM Administration Fentanyl 1 patch 12/24/20 13:45 12/24/20 14:31 Fentanyl 50mcg/Hr Patch TRANSDERM 1 patch Q72H ADAM Administration Protocol Hydromorphone HCl 0.5 mg 12/24/20 19:01 Hydromorphone 0.5 Mg/0.5 Ml Syringe IVP Q4HR PRN Pain Sodium Chloride 1,000 mls @ 100 mls/hr 12/23/20 13:30 12/24/20 07:39 Saline 0.9% IV 100 mls/hr .Q10H ADAM Administration Ceftriaxone Sodium 1 gm/ 50 mls @ 100 mls/hr 12/24/20 14:00 12/24/20 13:33 Sodium Chloride IVPB 100 mls/hr Q24HR@1400 ADAM Administration Miscellaneous Information 1 each 12/22/20 11:47 Magnesium Replacement Protocol 1 Each [facility] MISCELLANE DAILY PRN Per Protocol Protocol Miscellaneous Information 1 each 12/22/20 11:47 Potassium Replacement Protocol 1 Each [facility] MISCELLANE DAILY PRN Per Protocol Protocol Naloxone HCl 0.2 mg 12/21/20 23:09 Naloxone 0.4 Mg/Ml 1 Ml Vial IV Q2M PRN Opioid Reversal Ondansetron HCl 4 mg 12/21/20 23:09 Ondansetron 4 Mg/2 Ml Vial IVP Q8HR PRN Nausea And Vomiting Oxycodone/Acetaminophen 1 each 12/24/20 19:01 Oxycodone-Apap 7.5-325mg 1 Each Tab PO Q6HR PRN Pain Pantoprazole Sodium 40 mg 12/22/20 12:00 12/24/20 07:39 Pantoprazole 40 Mg Tablet PO 40 mg [id number] ADAM Administration Senna/Docusate Sodium 2 each 12/23/20 21:00 12/24/20 20:30 Sennosides-Docusate Sodium 1 Each Tab PO 2 each BID ADAM Administration Temazepam 15 mg 12/22/20 11:46 Temazepam 15 Mg Cap PO HS PRN Insomnia Objective - Vital Signs Vital signs: Vital Signs Temp 98.1 F 12/24/20 08:00 Pulse 116 H 12/24/20 13:55 Resp 18 12/24/20 13:04 BP 126/78 12/24/20 13:55 Pulse Ox 94 L 12/24/20 13:55 Intake & Output 12/23/20 12/24/20 12/24/20 18:59 06:59 18:59 Weight 74.843 kg Other: Voiding Method Bedside Commode Bedside Commode Bedside Commode # Voids 2 5 - Exam -GENERAL: The patient is sleepy today, obese him a breathing quietly. HEENT: Pupils are round and equally reacting to light. EOMI. No scleral icterus. No conjunctival pallor. Normocephalic, atraumatic. No pharyngeal erythema. No thyromegaly. CARDIOVASCULAR: S1 and S2 present. No murmurs, rubs, or gallops. PULMONARY: Chest is clear to auscultation, no wheezing or crackles. ABDOMEN: Soft, nontender, nondistended, normoactive bowel sounds. No palpable organomegaly. MUSCULOSKELETAL: No joint swelling or deformity. EXTREMITIES: No cyanosis, clubbing, or pedal edema. NEUROLOGICAL: Gross neurological examination did not reveal any focal deficits. SKIN: No rashes. no petechiae. - Labs CBC & Chem 7: 12/23/20 09:41 12/23/20 09:41 Labs: Abnormal Lab Results - Last 24 Hours (Table) 12/23/20 12/23/20 Range/Units 09:41 14:09 Total Protein (PEP) 6.0 L (6.2-8.2) g/dL Urine Appearance Cloudy H (Clear) Urine Blood Small H (Negative) Ur Leukocyte Esterase Moderate H (Negative) Urine RBC 14 H (0-5) /hpf Urine WBC 18 H (0-5) /hpf Urine Bacteria Rare H (None) /hpf Urine Mucus Rare H (None) /hpf Urine Yeast (Budding) Many H (None) /hpf Assessment and Plan Assessment: Metastatic bone lesion is suspected on bone scan with hypercalcemia. Patient with right and left triple tic lesions, multiple lesions on the calvarium and left hip. Also T5 and T9. Multiple subcentimeter pulmonary nodule Acute urinary tract infection Obesity with BMI of 31.2 Plan: This is a pleasant 70 years old female who presents with multiple bone lytic lesions suspicious for metastases and hypercalcemia and UTI. Continue with ceftriaxone, normal saline pamidronate IV Follow-up biopsy of the bone done on 12/24 Hematology/oncology consult Labs and medication were reviewed.. Continue same treatment. Continue with symptomatic treatment. Resume home medication. Monitor lytes and vitals. DVT and GI prophylaxis. Further recommendationsas per clinical course of the patient DVT prophylaxis: Subcutaneous heparin GI Prophylaxis: Pepcid PT/OT: Pending Prognosis is guarded
[2020-12-24] MEDS: HYDROmorphone 0.5 MG/0.5 ML SYRINGE IVP PRN (21:24)
[2020-12-25] MEDS: oxyCODONE-APAP 7.5-325MG 1 EACH TAB PO PRN ×2 (00:14→19:29)
[2020-12-25] MEDS: SODIUM CHLORIDE 0.9% 1,000 ML IV SCH ×2 (01:52→07:27)
[2020-12-25] MEDS: HYDROmorphone 0.5 MG/0.5 ML SYRINGE IVP PRN ×4 (05:14→23:07)
[2020-12-25] MEDS: SENNOSIDES-DOCUSATE SODIUM 1 EACH TAB PO SCH ×2 (07:28→19:32)
[2020-12-25] MEDS: PANTOPRAZOLE 40 MG TABLET PO SCH (07:28)
[2020-12-25] MEDS: ENOXAPARIN 40 MG/0.4 ML SYRINGE SQ SCH (07:35)
--- NOTE | 2020-12-25 08:34 | P.PN ---
Subjective This is a pleasant 70 years old female who was transferred from [facility] for hypercalcemia and left and right rib fracture and metastatic bone lesions suspected. When I saw the patient today she just came from her bone biopsy and she was sleeping and she could not provide information that was obtained from staff and records Looks like patient was complaining of from some chest tightness and workup showed some subcentimeter pulmonary nodules. Also she's been complaining of from some urinary symptoms and urgency, urinalysis is suspicious for infection therefore urine culture is requested and ceftriaxone was started. CEA-125 increased to, CT of the brain is negative for acute process. Chest x- ray showed bilateral atelectasis versus infiltrate Bone scan showing right mid ribs and left ribs lytic lesions coincided with soft tissue masses on CAT scan. Multiple lesions of the calvarium and left hip and multiple myeloma suspected per radiologist CT of the abdomen and pelvis and chest without contrast showed multiple pulmonary nodules, T5 and T10 lucencies and 1.5 cm lytic lesions in the left iliac bone Currently calcium is 12. And she is on pamidronate drip as well as normal splint 100 mL per hour and ceftriaxone as above 12/26/2020 Patient is confused today although she is awake and alert, she is drowsy but she will wake up easily and she can stay up. She complains from some mild pain in the hip areas. She denies chest pain or abdominal pain. Patient is poor historian today. She could not tell if she has urinary symptoms or pulmonary symptoms. Her labs from today are pending. Yesterday she had a CT of the bone with biopsy, there was an incidental finding of a right ovarian mass, [employer] team were consulted Patient remains on D5 normal saline at 75 mL/h, pamidronate drip and ceftriaxone for suspected UTI Review of systems: N/a Active Medications Generic Name Dose Route Start Last Admin Trade Name Freq PRN Reason Stop Dose Admin Alprazolam 0.25 mg 12/22/20 11:46 Alprazolam 0.25 Mg Tab PO TID PRN Anxiety Enoxaparin Sodium 40 mg 12/22/20 09:00 12/25/20 07:35 Enoxaparin 40 Mg/0.4 Ml Syringe SQ 40 mg DAILY ADAM Administration Fentanyl 1 patch 12/24/20 13:45 12/24/20 14:31 Fentanyl 50mcg/Hr Patch TRANSDERM 1 patch Q72H ADAM Administration Protocol Hydromorphone HCl 0.5 mg 12/24/20 19:01 12/25/20 05:14 Hydromorphone 0.5 Mg/0.5 Ml Syringe IVP 0.5 mg Q4HR PRN Administration Pain Ceftriaxone Sodium 1 gm/ 50 mls @ 100 mls/hr 12/24/20 14:00 12/24/20 13:33 Sodium Chloride IVPB 100 mls/hr Q24HR@1400 ADAM Administration Dextrose/Sodium Chloride 1,000 mls @ 75 mls/hr 12/25/20 08:30 Dextrose 5%-Ns Iv Soln IV .[id number] [facility] Miscellaneous Information 1 each 12/22/20 11:47 Magnesium Replacement Protocol 1 Each Misc MISCELLANE DAILY PRN Per Protocol Protocol Miscellaneous Information 1 each 12/22/20 11:47 Potassium Replacement Protocol 1 Each Misc MISCELLANE DAILY PRN Per Protocol Protocol Naloxone HCl 0.2 mg 12/21/20 23:09 Naloxone 0.4 Mg/Ml 1 Ml Vial IV Q2M PRN Opioid Reversal Ondansetron HCl 4 mg 12/21/20 23:09 Ondansetron 4 Mg/2 Ml Vial IVP Q8HR PRN Nausea And Vomiting Oxycodone/Acetaminophen 1 each 12/24/20 19:01 12/25/20 00:14 Oxycodone-Apap 7.5-325mg 1 Each Tab PO 1 each Q6HR PRN Administration Pain Pantoprazole Sodium 40 mg 12/22/20 12:00 12/25/20 07:28 Pantoprazole 40 Mg Tablet PO 40 mg [id number] ADAM Administration Senna/Docusate Sodium 2 each 12/23/20 21:00 12/25/20 07:28 Sennosides-Docusate Sodium 1 Each Tab PO 2 each BID ADAM Administration Temazepam 15 mg 12/22/20 11:46 Temazepam 15 Mg Cap PO HS PRN Insomnia Objective - Vital Signs Vital signs: Vital Signs Temp 98.1 F 12/25/20 00:59 Pulse 94 12/25/20 00:59 Resp 18 12/25/20 00:59 BP 126/82 12/25/20 00:59 Pulse Ox 94 L 12/25/20 00:59 Intake & Output 12/24/20 12/25/2012/25/21 18:59 06:59 18:59 Intake Total 850 Balance 850 Intake: IV 850 Sodium Chloride 0.9% 1, 800 000 ml @ 100 mls/hr IV . Q10H [facility] Rx#:[id number] cefTRIAXone 1 gm In 50 Sodium Chloride 0.9% 50 ml @ 100 mls/hr IVPB Q24HR@1400 [facility] Rx#: [id number] Other: Voiding Method Bedside Commode Bedside Commode # Voids 4 - Exam -GENERAL: he patient is alert but confused, answers some questions appropriately but most of the time she answers differently, not in any acute distress. Obese HEENT: Pupils are round and equally reacting to light. EOMI. No scleral icterus. No conjunctival pallor. Normocephalic, atraumatic. No pharyngeal erythema. No thyromegaly. CARDIOVASCULAR: S1 and S2 present. No murmurs, rubs, or gallops. PULMONARY: Chest is clear to auscultation, no wheezing or crackles. ABDOMEN: Soft, nontender, nondistended, normoactive bowel sounds. No palpable organomegaly. MUSCULOSKELETAL: No joint swelling or deformity. EXTREMITIES: No cyanosis, clubbing, or pedal edema. NEUROLOGICAL: Gross neurological examination did not reveal any focal deficits. SKIN: No rashes. no petechiae. - Labs CBC & Chem 7: 12/23/20 09:41 12/23/20 09:41 Labs: Abnormal Lab Results - Last 24 Hours (Table) 12/23/20 12/23/20 Range/Units 09:41 09:41 Albumin (PEP) 2.40 L (3.80-4.90) g/dL Ziumv-9-Kstsxfwwy 0.55 H (0.10-0.40) g/dL IgA 500.0 H (60.0-350.0) mg/dL IgM 369.0 H (40.0-280.0) mg/dL Free [place] LC, Quant 4.38 H (0.33-1.94) mg/dL Free [place] LC, Quant 6.23 H (0.57-2.63) mg/dL Assessment and Plan Assessment: Metastatic bone lesion is suspected on bone scan with hypercalcemia. Patient with right and left triple tic lesions, multiple lesions on the calvarium and left hip. Also T5 and T9. Right ovarian mass Metabolic encephalopathy secondary to hypercalcemia and UTI Multiple subcentimeter pulmonary nodule Acute urinary tract infection Obesity with BMI of 31.2 Plan: This is a pleasant 70 years old female who presents with multiple bone lytic lesions suspicious for metastases and hypercalcemia and UTI. Continue with ceftriaxone, normal saline pamidronate IV Follow-up biopsy of the bone done on 12/24 Hematology/oncology consult. [employer] consult Labs and medication were reviewed.. Continue same treatment. Continue with symptomatic treatment. Resume home medication. Monitor lytes and vitals. DVT and GI prophylaxis. Further recommendationsas per clinical course of the patient DVT prophylaxis: Subcutaneous heparin GI Prophylaxis: Pepcid PT/OT: Pending Prognosis is guarded
--- NOTE | 2020-12-25 08:43 | P.HPOR ---
History of Present Illness H&P Date: 12/25/20 Chief Complaint: L hip pain 70 yo female presented with complex medical history and history of possible ovarian cysts vs CA. She was worked up at [place] as well as other areas for her possible ovarian CA. She states today, orthopedically, that she is having difficulty with ambulation and that she is having pain in her L hip. She states this has been going on for a few months now, but over the past month she has found it more difficult to walk to the point now where she feels she cannot. She denies any bowel or bladder issues at this time. Denies any perineal numbn ess or tingling. She states pain in her L hip and leg that seems to be in the posterior aspect. It does not radiate. She states pain with ambulation, but not with movement. Denies any other symptoms or pain at this time. Review of Systems 14 points review of systems completed and as stated in HPI, all other systems reviewed are negative. Past Medical History Past Medical History: No Reported History Additional Past Medical History / Comment(s): Bone cancer, metasteatic cancer, rib fractures History of Any Multi-Drug Resistant Organisms: None Reported Past Surgical History: Tubal Ligation Past Anesthesia/Blood Transfusion Reactions: No Reported Reaction Past Psychological History: No Psychological Hx Reported Smoking Status: Never smoker Past Alcohol Use History: None Reported Past Drug Use History: None Reported - Past Family History Father Family Medical History: No Reported History Additional Family Medical History / Comment(s): Father is healthy and 84 yrs old. Mother Family Medical History: CVA/TIA Additional Family Medical History / Comment(s): CVA Medications and Allergies Home Medications Medication Instructions Recorded Confirmed Type Ibuprofen [Motrin Ib] 800 mg PO Q8H PRN 12/21/20 12/21/20 History Allergies Allergy/AdvReac Type Severity Reaction Status Date / Time celecoxib [From Celebrex] AdvReac constipatio Verified 12/21/20 22:11 n hydrocodone [From Vicodin] AdvReac constipatio Verified 12/21/20 22:11 n Physical Examination Osteopathic Statement: *. No significant issues noted on an osteopathic structural exam other than those noted in the History and Physical/Consult. PHYSICAL EXAMINATION: Vitals: stable at this time General: Awake, alert, appropriate for age, in no acute distress. HEENT: No unusual neck masses around region of lateral neck triangle, thyroid, supraclavicular groove. Extremities: Skin warm and dry without no acute lesions, coloration, temperature, skin intact, no tenderness or erythema. Integument: Hairy patches: Absent Dorsal skin dimples: Absent Cafe au lait spots: Absent Surgical incisions: none Palpation: Please see Pain drawing on Intake sheet for further detail. (Tenderness = T, Nontender = NT, Swelling = S, Ecchymosis = E) Findings on Midline and paraspinal palpation and percussion: Cervical: NT Thoracic: NT Lumbar: NT Sacral: NT Special findings: some tenderness to palpation of the posterior left leg but no tenderness around the greater trochanter on the left POSTURAL and MUSCULO-SKELETAL EVALUATION: Neck ROM: [Unrestricted in six directions] Lumbar ROM: [Unrestricted in six directions] Shoulder ROM: Symmetric in abduction, ER/IR Hip ROM: Symmetric in abduction, adduction, ER/IR Knee ROM: Symmetric and intact in Flexion / extension Hands: Normal appearing structure L and R Feet: Normal appearing structure L and R VASCULAR STATUS : Wrist Pulses: [2/4 bilateral radial and ulnar] Pedal Pulses: [2/4 bilateral DP and PT] Color: [Normal] Edema: [None] NEUROLOGIC EXAMINATION: Mental Status: Awake and alert, fully oriented, with normal attention, concentration and memory, and fluent, appropriate speech. Cranial Nerves: I: Olfactory not tested. II: Visual acuity normal, no visual field deficit noted with confrontation. III,IV: Normal pupillary reflexes & intact extraocular movements without nystagmus. V,: Intact symmetrical facial sensation. VII: Intact symmetrical facial motor movement VIII: Hearing intact. IX,X: Intact gag, swallow, & normal voice. XI: Sternocleidomastoid, trapezius function intact. XII: Tongue midline with normal movements. Special Tests: L'hermitte's Sign: Absent Spurling'Sign: Absent Bilateral Cubital percussion test: Absent Bilateral Shauna-Tinel sign - Carpal region: Absent Bilateral Straight Leg Raising: Absent Bilateral Motor Exam (0-5/5, N/T) STRENGTH UPPER EXTREMITY Shoulder Abd (Not part of EVITA Motor score): RIGHT [5] LEFT [5] Elbow Flexors: RIGHT [5] LEFT [5] Elbow Extensor: RIGHT [5] LEFT [5] Wrrist Dorsiflexors: RIGHT [5] LEFT [5] Finger Abductor: RIGHT [5] LEFT [5] Sewing Department Supervisor: RIGHT [5] LEFT [5] LOWER EXTREMITY Hip Flexor (Not part of EVITA Motor Score): RIGHT [4] LEFT [4] Knee Flexor: RIGHT [5] LEFT [5] Knee Extensor: RIGHT [5] LEFT [5] Ankle Dorsiflexion: RIGHT [5] LEFT [5] Ankle Plantarflexion: RIGHT [5] LEFT [5] EHL: RIGHT [5] LEFT [5] FHL: RIGHT [5] LEFT [5] no focal deficits negative logroll of the bilateral hips negative Silverskiold test REFLEXES Biecp: RIGHT [2] LEFT [2] Tricep: RIGHT [2] LEFT [2] Brachioradialis: RIGHT [2] LEFT [2] Patellar: RIGHT [2] LEFT [2] Achilles: RIGHT [2] LEFT [2] Pathological Reflexes Reyez's: RIGHT [Absent] LEFT [Absent] Babinski: RIGHT [Absent] LEFT [Absent] Clonus: RIGHT [None] LEFT [None] SENSORY Joint Position: [Intact bilaterally] Vibration [Intact bilaterally] Pain and LT sense [Intact C5-T1 and L2-S1] Dermatomal deficit [None] Gait and Functional Evaluation: walks with a walker Hand and finger dexterity intact bilaterally[]. Disdiadochokinesis examination negative[] bilaterally. Results CT chest and pelvis as well as bone scan and multiple other studies are reviewed. On bone scan there is increased uptake in the left intertrochanteric 3. There is increased uptake from the patient's iliac wings as well. His int anjelica increased uptake of her medial knee joint so this likely due to osteoarthritis. There is no cavitary bone lesions or cavitary uptake. At around T7 there is lytic lesion within her vertebral body is noted. Computed tomography scan does not delineate the femurs proximally very well however there is a small lytic foci around the left femur which is noted in the intertrochanteric region and we will further investigate this. No overt fractures or dislocations noted in any of the films - Labs Labs: Abnormal Lab Results - Last 24 Hours (Table) 12/23/20 12/23/20 Range/Units 09:41 09:41 Albumin (PEP) 2.40 L (3.80-4.90) g/dL Guusw-1-Orfnrfnwx 0.55 H (0.10-0.40) g/dL IgA 500.0 H (60.0-350.0) mg/dL IgM 369.0 H (40.0-280.0) mg/dL Free [place] LC, Quant 4.38 H (0.33-1.94) mg/dL Free Lambda LC, Quant 6.23 H (0.57-2.63) mg/dL H & H 12/22/20 12/23/20 Range/Units 04:39 09:41 Hgb 11.6 11.6 (11.4-16.0) gm/dL Hct 34.7 34.5 (34.0-46.0) % Coagulation 12/24/20 Range/Units 08:14 INR 1.1 (<1.2) Result Diagrams: 12/23/20 09:41 12/23/20 09:41 Assessment and Plan Assessment: 70-year-old female with likely metastatic ovarian cancer versus multiple myelo ma 1. Left hip pain patient's Mirels score is between 9 and 11 which puts her at a 33% risk of fracture 2. complex medical history Plan: - obtain further imaging of left femur with AP pelvis as well as left hip films and computed tomography scan evaluate for need of prophylactic fixation - pain control as needed - GI DVT prophylaxis - further recommendations once imaging is completed Time with Patient: Greater than 30
[2020-12-25] MEDS: DEXTROSE 5%-0.9% NACL 1,000 ML IV SCH (08:52)
[2020-12-25 09:10] LABS: Calcium 11.2 mg/dL (8.4-10.2); Magnesium 1.3 mg/dL (1.6-2.3)
[2020-12-25 09:14] LABS: Basophils % (A) 0 %; Eosinophils # (A) 0.3 k/uL (0-0.7); Eosinophils % (A) 3 %; HCT 37.3 % (34.0-46.0); HGB 12.2 gm/dL (11.4-16.0); Lymphocytes # (A) 1.5 k/uL (1.0-4.8); Lymphocytes % (A) 14 %; MCH 26.6 pg (25.0-35.0); MCHC 32.6 g/dL (31.0-37.0); MCV 81.7 fL (80.0-100.0); Mean Platelet Volume 7.8; Monocytes # (A) 0.5 k/uL (0-1.0); Monocytes % (A) 4 %; Neutrophils # (A) 8.8 k/uL (1.3-7.7); Neutrophils % (A) 78 %; Platelet Count 301 k/uL (150-450); RBC 4.56 m/uL (3.80-5.40); RDW 14.6 % (11.5-15.5); WBC 11.2 k/uL (3.8-10.6)
[2020-12-25] MEDS: MAGNESIUM SULFATE-D5W PMX 1 GM in DEXTROSE/WATER 1 100ML.BAG IVPB SCH ×2 (09:54→11:37)
[2020-12-25] MEDS: POTASSIUM CHLORIDE ER 20 MEQ TAB.ER PO SCH ×3 (09:55→14:29)
--- NOTE | 2020-12-25 11:21 | P.CONS ---
History of Present Illness - Reason for Consult Consult date: 12/25/20 Bone metastatic disease - Chief Complaint Intractable pain - History of Present Illness Mrs. Mensah is a 70 years old female was admitted to the hospital for severe back pain and difficulty standing up or moving around, the patient reported that the pain has been there since last year, but recently the pain progressed to the point she was unable to ambulate or stand up on her feet. The patient has no history of cancer, however she was worked up at [facility] for a suspicious ovarian cancer by Dr. Hdz. 12/22/2020 CT of the chest abdomen and pelvis without contrast revealed mild bilateral pleural effusion, multiple bilateral pulmonary nodules, no mediastinal adenopathy, no retroperitoneal adenopathy, no liver or pancreas masses ,and most of the organs in the abdomen and pelvis within normal limits, however there is lucency at the posterior aspect of T9 vertebral body, there is other smaller lucent areas in the thoracic and lumbar spine, there is 1.5 cm lytic focus lesion in the left iliac bone , there is 2.3 cm lytic lesion in the posterior left side of S2 vertebra, multiple lytic foci in the ribs with soft tissue mass and a pathologic fracture of the mid right ribs . Bone scan of the whole body showed increased radiotracer uptake in the lateral right mid ribs with a destructive lytic lesion and soft tissue component, multiple areas of increased uptake in the calvarium, increased uptake in the left hip at the level of the greater trochanter, increased uptake medial tibiofemoral compartment in bilateral knees ,probably reflects advanced osteoarthritis, this presentation in the bone scan is highly suspicious for multiple myeloma. The patient underwent CT guided biopsy of the destructive left iliac mass yesterday , the results are still bending . At this time the patient is still complaining of pain, especially in the upper back, bilateral ribs , and left pelvis. Review of Systems Constitutional: Reports as per HPI Ears, nose, mouth and throat: Reports as per HPI Cardiovascular: Reports as per HPI Respiratory: Reports as per HPI Gastrointestinal: Reports as per HPI Genitourinary: Reports as per HPI Menstruation: Reports as per HPI Musculoskeletal: Reports as per HPI Integumentary: Reports as per HPI Neurological: Reports as per HPI Psychiatric: Reports as per HPI Endocrine: Reports as per HPI Hematologic/Lymphatic: Reports as per HPI Allergic/Immunologic: Reports as per HPI Past Medical History Past Medical History: No Reported History Additional Past Medical History / Comment(s): Bone cancer, metasteatic cancer, rib fractures History of Any Multi-Drug Resistant Organisms: None Reported Past Surgical History: Tubal Ligation Past Anesthesia/Blood Transfusion Reactions: No Reported Reaction Past Psychological History: No Psychological Hx Reported Smoking Status: Never smoker Past Alcohol Use History: None Reported Past Drug Use History: None Reported - Past Family History Father Family Medical History: No Reported History Additional Family Medical History / Comment(s): Father is healthy and 84 yrs old. Mother Family Medical History: CVA/TIA Additional Family Medical History / Comment(s): CVA Medications and Allergies Home Medications Medication Instructions Recorded Confirmed Type Ibuprofen [Motrin Ib] 800 mg PO Q8H PRN 12/21/20 12/21/20 History Allergies Allergy/AdvReac Type Severity Reaction Status Date / Time celecoxib [From Celebrex] AdvReac constipatio Verified 12/21/20 22:11 n hydrocodone [From Vicodin] AdvReac constipatio Verified 12/21/20 22:11 n Physical Exam Vitals: Vital Signs Temp Pulse Resp BP Pulse Ox 12/25/20 08:00 96.9 F L 107 H 16 136/73 95 12/25/20 00:59 98.1 F 94 18 126/82 94 L 12/24/20 16:57 105 H 18 125/63 90 L 12/24/20 16:09 90 L 12/24/20 16:03 110 H 18 188/74 90 L 12/24/20 15:08 98.0 F 116 H 18 147/81 93 L 12/24/20 14:47 114 H 162/82 92 L 12/24/20 14:25 115 H 158/73 93 L 12/24/20 14:10 111 H 166/88 95 12/24/20 13:55 116 H 126/78 94 L 12/24/20 13:40 115 H 132/73 95 12/24/20 13:04 119 H 18 152/92 95 12/24/20 12:55 119 H 18 159/89 96 12/24/20 12:45 119 H 20 153/91 96 Intake and Output 12/24/20 12/25/20 12/25/20 22:59 06:59 14:59 Intake Total 850 Balance 850 Intake: IV 850 Sodium Chloride 0.9% 1, 800 000 ml @ 100 mls/hr IV . Q10H [facility] Rx#:[id number] cefTRIAXone 1 gm In 50 Sodium Chloride 0.9% 50 ml @ 100 mls/hr IVPB Q24HR@1400 [facility] Rx#: [id number] Other: Voiding Method Bedside Commode External Catheter # Voids 1 4 - Constitutional General appearance: no acute distress - EENT Eyes: EOMI - Neck Neck: no lymphadenopathy - Respiratory Respiratory: bilateral: diminished - Cardiovascular Rhythm: regular - Gastrointestinal General gastrointestinal: no organomegaly, soft, no tenderness - Integumentary Integumentary: normal, normal turgor - Neurologic Neurologic: CNII-XII intact - Musculoskeletal Musculoskeletal: generalized weakness - Psychiatric Psychiatric: A&O x's 3, appropriate affect Results CBC & Chem 7: 12/25/20 08:29 12/25/20 08:29 Labs: Abnormal Lab Results - Last 24 Hours (Table) 12/23/20 12/23/20 12/25/20 Range/Units 09:41 09:41 08:29 WBC 11.2 H (3.8-10.6) k/uL Neutrophils # 8.8 H (1.3-7.7) k/uL Sodium (137-145) mmol/L Potassium (3.5-5.1) mmol/L Chloride (98-107) mmol/L Carbon Dioxide (22-30) mmol/L BUN (7-17) mg/dL Glucose (74-99) mg/dL Calcium (8.4-10.2) mg/dL Magnesium (1.6-2.3) mg/dL Albumin (PEP) 2.40 L (3.80-4.90) g/dL Naexv-5-Gzrroeshf 0.55 H (0.10-0.40) g/dL IgA 500.0 H (60.0-350.0) mg/dL IgM 369.0 H (40.0-280.0) mg/dL Free [place] LC, Quant 4.38 H (0.33-1.94) mg/dL Free [place] LC, Quant 6.23 H (0.57-2.63) mg/dL 12/25/20 Range/Units 08:29 WBC (3.8-10.6) k/uL Neutrophils # (1.3-7.7) k/uL Sodium 133 L (137-145) mmol/L Potassium 3.0 L (3.5-5.1) mmol/L Chloride 95 L (98-107) mmol/L Carbon Dioxide 33 H (22-30) mmol/L BUN 19 H (7-17) mg/dL Glucose 112 H (74-99) mg/dL Calcium 11.2 H (8.4-10.2) mg/dL Magnesium 1.3 L (1.6-2.3) mg/dL Albumin (PEP) (3.80-4.90) g/dL Onvrx-0-Oohgyvdls (0.10-0.40) g/dL IgA (60.0-350.0) mg/dL IgM (40.0-280.0) mg/dL Free [place] LC, Quant (0.33-1.94) mg/dL Free [place] LC, Quant (0.57-2.63) mg/dL Microbiology - Last 24 Hours (Table) 12/24/20 22:45 Urine Culture - Preliminary Urine,Clean Catch Assessment and Plan Assessment: Osseous metastatic disease involving calvarium, spine, ribs, iliac, and hips. Probably from ovarian cancer or multiple myeloma. (1) Metastatic disease Current Visit: Yes Status: Acute Code(s): C79.9 - SECONDARY MALIGNANT NEOPLASM OF UNSPECIFIED SITE SNOMED Code(s): 939824121 Plan: Images reviewed and discussed with the patient, waiting for the results of the CT-guided biopsy of the destructive left iliac mass, I have discussed with the patient about having palliative external beam radiation to the areas that cau sing pain, I talked about the rationale, the technique, and the potential acute and late side effects of the treatment . At this time the patient complains of pain in the ribs and left iliac bone, she agreed to proceed with the treatment plan to start her treatment when we have the results of the biopsy.
--- NOTE | 2020-12-25 13:34 | XR ---
EXAMINATION TYPE: XR femur bilateral DATE OF EXAM: 12/25/2020 CLINICAL HISTORY: Pain TECHNIQUE: Two views of the left femur are obtained. COMPARISON: None FINDINGS: Right femur: There is no acute fracture or dislocation seen in the left femur. Moderate concentric na rrowing the head joint space. No erosive changes. Severe narrowing of the medial compartment of the k nee joint. Vascular calcification noted. Left femur: Moderate concentric narrowing of the joint space. Hypertrophic change of the acetabulum. Severe narrowing of the medial compartment knee joint with diffuse osteopenia. IMPRESSION: 1. Moderate to severe bilateral hip arthropathy correlate for femoral acetabular impingement. 2. Severe bilateral osteoarthritis of the knees.
--- NOTE | 2020-12-25 13:37 | XR ---
EXAMINATION TYPE: XR Hip Bilateral and AP pelvis DATE OF EXAM: 12/25/2020 COMPARISON: NONE HISTORY: Pain TECHNIQUE: A single AP view of the pelvis is obtained. Two views of the bilateral hip are obtained. FINDINGS: There is no acute fracture/dislocation evident in the pelvis. Moderate to severe concentri c narrowing of the hip joints bilaterally with hypertrophic change of the acetabulum. Vascular calcif ications in the pelvis. Appears to be residual contrast within distended colon. There is slight irreg ularity of the right lower margin of the sacrum. Lucent lesion seen involving the iliac bones are not as well-seen by standard x-ray. There does appear to be lucency corresponding to the right superior pubic ramus lesion. Additionally other areas of lucency involving the iliac bones noted. IMPRESSION: 1. There appears to be irregularity of the lower margin of the right sacroiliac joint. Recommend CAT scan to exclude fracture. 2. Arthropathy of the hips correlate for femoral acetabular impingement. 3. Metastatic lesion seen by CAT scan not as well seen by x-ray. However, a few are noted by standard x-ray suggestive of metastases.
--- NOTE | 2020-12-25 19:18 | P.PN ---
Subjective Progress Note Date: 12/25/20 Principal diagnosis: COncern of metastatic Cancer Pain a little better controlled today Objective - Vital Signs Vital signs: Vital Signs Temp 97 F L 12/25/20 14:52 Pulse 114 H 12/25/20 14:52 Resp 16 12/25/20 08:00 BP 182/88 12/25/20 14:52 Pulse Ox 94 L 12/25/20 14:52 Intake & Output 12/25/20 12/25/20 12/26/20 06:59 18:59 06:59 Intake Total 150 Balance 150 Weight 74.843 kg Intake: Intake, IV Titration 150 Amount Dextrose 5%-0.9% NaCl 1, 150 000 ml @ 75 mls/hr IV . [id number] [facility] Rx#:[id number] Other: Voiding Method Bedside Commode External Catheter # Voids 4 - Exam - Constitutional General appearance: cooperative, no acute distress - EENT Eyes: EOMI ENT: NA/AT, normal oropharynx - Neck Neck: normal ROM - Respiratory Respiratory: bilateral: diminished - Cardiovascular Rhythm: regular - Gastrointestinal General gastrointestinal: soft - Integumentary Integumentary: pale - Musculoskeletal Musculoskeletal: generalized weakness - Psychiatric Psychiatric: A&O x's 3, appropriate affect - Labs CBC & Chem 7: 12/25/20 08:29 12/25/20 08:29 Labs: Abnormal Lab Results - Last 24 Hours (Table) 12/25/20 12/25/20 Range/Units 08:29 08:29 WBC 11.2 H (3.8-10.6) k/uL Neutrophils # 8.8 H (1.3-7.7) k/uL Sodium 133 L (137-145) mmol/L Potassium 3.0 L (3.5-5.1) mmol/L Chloride 95 L (98-107) mmol/L Carbon Dioxide 33 H (22-30) mmol/L BUN 19 H (7-17) mg/dL Glucose 112 H (74-99) mg/dL Calcium 11.2 H (8.4-10.2) mg/dL Magnesium 1.3 L (1.6-2.3) mg/dL Microbiology - Last 24 Hours (Table) 12/24/20 22:45 Urine Culture - Preliminary Urine,Clean Catch Assessment and Plan (1) Pulmonary nodules Current Visit: Yes Status: Acute Code(s): R91.8 - OTHER NONSPECIFIC ABNORMAL FINDING OF LUNG FIELD SNOMED Code(s): 050972605 (2) Hypercalcemia Current Visit: Yes Status: Acute Code(s): E83.52 - HYPERCALCEMIA SNOMED Code(s): 24543764 Plan: Assessment and Recommendations: Multiple SubCentimeter Pulmonary Nodules - Likely too small to biopsy Lesions suspicious of malignancy in bones seen on CT: - Bone scan reviewed with patient and daughter - Will order Biopsy right hip with IR HYpercalcemia: - IV Hydration - Await Calcium levels in am, possible Aredia or ZOmeta if still increased after IV Hydration - Aredia ordered today Ca125 increased concern of metastatic cancer biopsy today left is iliac discussed with IR and plan today biopsy I spoke daughter and informed and she agrees with plan. Plan: - Radiation oncology consult for palliaitive radiation - Ortho consult for rec on weight bearing or other measures, lytic lesion right hip ?impending fracture? - Add long acting Fentanyl and chage breakthrough adding PO breakthrough for pain control after discharge - Narcotic induced constipation risk discussed and prophylaxic senna - s BID a dded - Await Path for treatment options
[2020-12-26] MEDS: DEXTROSE 5%-0.9% NACL 1,000 ML IV SCH ×2 (00:53→14:02)
[2020-12-26] MEDS: oxyCODONE-APAP 7.5-325MG 1 EACH TAB PO PRN ×3 (04:02→19:04)
[2020-12-26] MEDS: SENNOSIDES-DOCUSATE SODIUM 1 EACH TAB PO SCH ×2 (08:55→20:49)
[2020-12-26] MEDS: ENOXAPARIN 40 MG/0.4 ML SYRINGE SQ SCH (08:56)
[2020-12-26] MEDS: PANTOPRAZOLE 40 MG TABLET PO SCH (08:56)
--- NOTE | 2020-12-26 10:02 | P.PN ---
Subjective Progress Note Date: 12/26/20 Principal diagnosis: Left hip pain, concern for possible ovarian cancer with metastasis versus multiple myeloma Patient was evaluated today at bedside, she is sleeping upon arrival. She is easily awoken. She still notes the discomfort in her left proximal femur on the posterior aspect. She did have x-rays done yesterday of the hip and femur. There is no obvious lytic lesions present in that region. Computed tomography scan of the left hip will be ordered without contrast to further evaluate due to the findings of bone scan. Objective - Vital Signs Vital signs: Vital Signs Temp 98.4 F 12/26/20 04:44 Pulse 117 H 12/26/20 04:44 Resp 16 12/26/20 04:44 BP 128/78 12/26/20 04:44 Pulse Ox 96 12/26/20 04:44 Intake & Output 12/25/20 12/26/20 12/26/20 18:59 06:59 18:59 Intake Total 150 Output Total 600 Balance 150 -600 Weight 74.843 kg Intake: Intake, IV Titration 150 Amount Dextrose 5%-0.9% NaCl 1, 150 000 ml @ 75 mls/hr IV . [id number] [facility] Rx#:[id number] Output: Urine 600 Other: Voiding Method External Catheter External Catheter # Voids 0 # Bowel Movements 0 - Exam Left lower extremity: No obvious open lesions or sores are present throughout the extremity. She has full range of motion with regards to hip flexion, knee extension, knee flexion, plantar flexion, dorsiflexion, EHL, FHL Slight decrease in strength with hip flexion when compared to contralateral side, knee extension, knee flexion, plantar flexion, dorsiflexion, EHL, FHL are all 5 out of 5 There is slight tenderness noted with palpation of the proximal femur along the posterior aspect Logroll maneuver reproduces no significant pain, she can straight leg raise Calf is soft, no tenderness with palpation Sensory exam to light touch throughout the extremity is intact Skin is warm to touch - Labs CBC & Chem 7: 12/25/20 08:29 12/25/20 08:29 Labs: Microbiology - Last 24 Hours (Table) 12/24/20 22:45 Urine Culture - Final Urine,Clean Catch Assessment and Plan Assessment: Left hip pain patient's Mirels score is between 9 and 11 which puts her at a 33% risk of fracture Plan: X-rays of the left hip demonstrated no obvious lytic lesions or acute osseous abnormalities. Computed tomography scan without contrast of the left hip will be ordered for further evaluation Pain control per primary medical service GI and DVT prophylaxis per primary medical service Other medical lab technologist recommendations Further recommendations to follow
--- NOTE | 2020-12-26 10:25 | CT ---
EXAMINATION TYPE: CT hip LT wo con DATE OF EXAM: 12/26/2020 COMPARISON: 12/22/2020 HISTORY: left hip pain, r/o metastatic lesion CT DLP: 497 mGycm Automated exposure control for dose reduction was used. FINDINGS: There is a lucent lesion involving the left superior pubic ramus at the level of the pubic symphysis compatible with a destructive intraosseous lesion. There also appears to be a right-sided superior pubic ramus fracture with lytic lesion compatible wit h pathologic fracture. Additional previously noted lytic lesions involving the pelvic bones are not i ncluded in the [id number]. Lytic lesion involving the left iliac bone and sacrum also noted. IMPRESSION: 1. There are lytic lesions involving the anterior margin of the pubic rami bilaterally with a patholo gic fracture involving the right superior pubic ramus minimally displaced. 2. Additional lucent lesions compatible with metastases.
--- NOTE | 2020-12-26 11:43 | P.PN ---
Subjective Progress Note Date: 12/26/20 Principal diagnosis: COncern of metastatic Cancer CT Hip reveals pathological mildly displaced fracture as well as revealing lytic lesions in anterior margin and rami Objective - Vital Signs Vital signs: Vital Signs Temp 98.4 F 12/26/20 04:44 Pulse 117 H 12/26/20 04:44 Resp 16 12/26/20 04:44 BP 128/78 12/26/20 04:44 Pulse Ox 96 12/26/20 04:44 Intake & Output 12/25/20 12/26/20 12/26/20 18:59 06:59 18:59 Intake Total 150 Output Total 600 Balance 150 -600 Weight 74.843 kg Intake: Intake, IV Titration 150 Amount Dextrose 5%-0.9% NaCl 1, 150 000 ml @ 75 mls/hr IV . [id number] [facility] Rx#:[id number] Output: Urine 600 Other: Voiding Method External Catheter External Catheter External Catheter # Voids 0 # Bowel Movements 0 - Exam - Constitutional General appearance: cooperative, no acute distress - EENT Eyes: EOMI ENT: NA/AT, normal oropharynx - Neck Neck: normal ROM - Respiratory Respiratory: bilateral: diminished - Cardiovascular Rhythm: regular - Gastrointestinal General gastrointestinal: soft - Integumentary Integumentary: pale - Musculoskeletal Musculoskeletal: generalized weakness - Psychiatric Psychiatric: A&O x's 3, appropriate affect - Labs CBC & Chem 7: 12/26/20 11:41 12/26/20 11:41 Labs: Microbiology - Last 24 Hours (Table) 12/24/20 22:45 Urine Culture - Final Urine,Clean Catch Assessment and Plan (1) Pulmonary nodules Current Visit: Yes Status: Acute Code(s): R91.8 - OTHER NONSPECIFIC ABNORMAL FINDING OF LUNG FIELD SNOMED Code(s): 812774510 (2) Hypercalcemia Current Visit: Yes Status: Acute Code(s): E83.52 - HYPERCALCEMIA SNOMED Code(s): 91572472 Plan: Assessment and Recommendations: Multiple SubCentimeter Pulmonary Nodules - Likely too small to biopsy Lesions suspicious of malignancy in bones seen on CT: - Bone scan reviewed with patient and daughter - Will order Biopsy right hip with IR - Pathological fracture, mild displaced, ortho following HYpercalcemia: - IV Hydration - Status Post Aredia 12/23 Ca125 increased concern of metastatic cancer biopsy today left is iliac discussed with IR and plan today biopsy I spoke daughter and informed and she agrees with plan. Plan: - Radiation oncology consult for palliaitive radiation - Await Ortho rec on weight bearing or other measures, lytic lesion right hip CT revealing pathological fracture, mildly displaced - Add long acting Fentanyl and chage breakthrough adding PO breakthrough for pain control after discharge - Narcotic induced constipation risk discussed and prophylaxic senna - s BID added - Await Path for treatment options Physician Attest: I have completed full history and physical developed above imp ression and plan, agree with dictation, dictated as a scribe
[2020-12-26 12:11] LABS: Basophils # (A) 0.1 k/uL (0-0.2); Basophils % (A) 0 %; Eosinophils # (A) 0.9 k/uL (0-0.7); Eosinophils % (A) 6 %; HCT 35.2 % (34.0-46.0); HGB 12.1 gm/dL (11.4-16.0); Lymphocytes % (A) 15 %; MCH 27.4 pg (25.0-35.0); MCHC 34.3 g/dL (31.0-37.0); MCV 79.9 fL (80.0-100.0); Mean Platelet Volume 7.2; Monocytes # (A) 0.6 k/uL (0-1.0); Monocytes % (A) 4 %; Neutrophils % (A) 73 %; Platelet Count 294 k/uL (150-450); RBC 4.41 m/uL (3.80-5.40); WBC 13.7 k/uL (3.8-10.6)
[2020-12-26 12:43] LABS: ALT 13 U/L (4-34); AST 47 U/L (14-36); African American GFR (CKD) >90 (>60 ml/min/1.73 sqM); Albumin 2.6 g/dL (3.5-5.0); Albumin/Globulin Ratio 0.8; Alkaline Phosphatase 111 U/L (38-126); Anion Gap 2 mmol/L; Blood Urea Nitrogen 20 mg/dL (7-17); Calcium 9.7 mg/dL (8.4-10.2); Carbon Dioxide 32 mmol/L (22-30); Chloride 97 mmol/L (98-107); Globulin 3.3 g/dL; Glucose 128 mg/dL (74-99); Magnesium 1.6 mg/dL (1.6-2.3); Non-African American GFR(CKD) >90 (>60 ml/min/1.73 sqM); Potassium 3.3 mmol/L (3.5-5.1); Sodium 131 mmol/L (137-145); Total Bilirubin 0.5 mg/dL (0.2-1.3); Total Protein 5.9 g/dL (6.3-8.2)
[2020-12-26 13:58] LABS: African American GFR (CKD) 108.5 (60.0-200.0); Anion Gap 8.6 mmol/L (4.00-12.00); Calcium 9.8 mg/dL (8.7-10.3); Carbon Dioxide 28.4 mmol/L (21.6-31.8); Magnesium 1.5 mg/dL (1.5-2.4); Non-African American GFR(CKD) 93.7 (60.0-200.0); Potassium 3.3 mmol/L (3.5-5.5)
--- NOTE | 2020-12-26 16:21 | P.PN ---
Subjective This is a pleasant 70 years old female who was transferred from [facility] for hypercalcemia and left and right rib fracture and metastatic bone lesions suspected. When I saw the patient today she just came from her bone biopsy and she was sleeping and she could not provide information that was obtained from staff and records Looks like patient was complaining of from some chest tightness and workup showed some subcentimeter pulmonary nodules. Also she's been complaining of from some urinary symptoms and urgency, urinalysis is suspicious for infection therefore urine culture is requested and ceftriaxone was started. CEA-125 increased to, CT of the brain is negative for acute process. Chest x- ray showed bilateral atelectasis versus infiltrate Bone scan showing right mid ribs and left ribs lytic lesions coincided with soft tissue masses on CAT scan. Multiple lesions of the calvarium and left hip and multiple myeloma suspected per radiologist CT of the abdomen and pelvis and chest without contrast showed multiple pulmonary nodules, T5 and T10 lucencies and 1.5 cm lytic lesions in the left iliac bone Currently calcium is 12. And she is on pamidronate drip as well as normal splint 100 mL per hour and ceftriaxone as above 12/25/2020 Patient is confused today although she is awake and alert, she is drowsy but she will wake up easily and she can stay up. She complains from some mild pain in the hip areas. She denies chest pain or abdominal pain. Patient is poor historian today. She could not tell if she has urinary symptoms or pulmonary symptoms. Her labs from today are pending. Yesterday she had a CT of the bone with biopsy, there was an incidental finding of a right ovarian mass, RO[employer] GR[employer]PER[employer] team were consulted Patient remains on D5 normal saline at 75 mL/h, pamidronate drip and ceftriaxone for suspected UTI 12/26/2020 For the third day patient remains very drowsy, she is minimally interactive with my encounter. I tried to wake her up several times, she'll open her eyes and answer 1 or 2 questions for me and then go back to sleep. However patient can say she is in hospital and that she is sick with her bone disease. She was complaining of from pain in her chest and rib area, both sides right and left also on the left groin area/flank area. Patient was noticed takes several medications including Xanax, fentanyl, Percocet. And Dilaudid. Most of Xanax and Dilaudid, Fentanyl and Percocet and keep monitoring and reassess her pain level and alertness. She has CAT scan without contrast today showing lytic lesions involving the anterior margin of the pubic rami bilaterally with pathological fracture involving the right superior pubic ramus, minimally displaced Urine culture showing no growth, subtraction was stopped. Check procalcitonin Objective - Vital Signs Vital signs: Vital Signs Temp 98.1 F 12/26/20 12:41 Pulse 123 H 12/26/20 12:41 Resp 19 12/26/20 12:41 BP 137/73 12/26/20 12:41 Pulse Ox 95 12/26/20 12:41 Intake & Output 12/25/20 12/26/20 12/26/20 18:59 06:59 18:59 Intake Total 150 Output Total 600 Balance 150 -600 Weight 74.843 kg Intake: Intake, IV Titration 150 Amount Dextrose 5%-0.9% NaCl 1, 150 000 ml @ 75 mls/hr IV . [id number] [facility] Rx#:[id number] Output: Urine 600 Other: Voiding Method External Catheter External Catheter External Catheter # Voids 0 # Bowel Movements 0 - Exam -GENERAL: he patient is alert but confused, answers some questions appropriately but most of the time she answers differently, not in any acute distress. Obese HEENT: Pupils are round and equally reacting to light. EOMI. No scleral icterus. No conjunctival pallor. Normocephalic, atraumatic. No pharyngeal erythema. No thyromegaly. CARDIOVASCULAR: S1 and S2 present. No murmurs, rubs, or gallops. PULMONARY: Chest is clear to auscultation, no wheezing or crackles. ABDOMEN: Soft, nontender, nondistended, normoactive bowel sounds. No palpable or ganomegaly. MUSCULOSKELETAL: No joint swelling or deformity. EXTREMITIES: No cyanosis, clubbing, or pedal edema. NEUROLOGICAL: Gross neurological examination did not reveal any focal deficits. SKIN: No rashes. no petechiae. - Labs CBC & Chem 7: 12/26/20 11:41 12/26/20 11:41 Labs: Abnormal Lab Results - Last 24 Hours (Table) 12/26/20 12/26/20 12/26/20 Range/Units 05:14 11:41 11:41 WBC 13.7 H (3.8-10.6) k/uL MCV 79.9 L (80.0-100.0) fL Neutrophils # 10.0 H (1.3-7.7) k/uL Eosinophils # 0.9 H (0-0.7) k/uL Sodium 132 L 131 L (135-145) mmol/L Potassium 3.3 L 3.3 L (3.5-5.5) mmol/L Chloride 95 L 97 L (96-109) mmol/L Carbon Dioxide 32 H (22-30) mmol/L BUN 20 H (7-17) mg/dL BUN/Creatinine Ratio 35.00 H (12.00-20.00) Ratio Glucose 130 H 128 H (70-110) mg/dL AST 47 H (14-36) U/L Total Protein 5.9 L (6.3-8.2) g/dL Albumin 2.6 L (3.5-5.0) g/dL Microbiology - Last 24 Hours (Table) 12/24/20 22:45 Urine Culture - Final Urine,Clean Catch Assessment and Plan Assessment: Metastatic bone lesion is suspected on bone scan with hypercalcemia. Patient with right and left triple tic lesions, multiple lesions on the calvarium and left hip. Also T5 and T9. Bilateral lytic lesions of the pubic rami with pathological fracture on the right superior pubic ramus, minimally displaced Right ovarian mass (per Dr. Moreno, she does not believe that's ovarian mass responsible for renal metastatic disease, and recommended outpatient follow-up ) Metabolic encephalopathy secondary to hypercalcemia and UTI Multiple subcentimeter pulmonary nodule Acute urinary tract infection Obesity with BMI of 31.2 Plan: This is a pleasant 70 years old female who presents with multiple bone lytic lesions suspicious for metastases and hypercalcemia , improved normal saline , pain management Follow-up biopsy of the bone done on 12/24 Follow-up radiation oncology Hematology/oncology team on the case Labs and medication were reviewed.. Continue same treatment. Continue with symptomatic treatment. Resume home medication. Monitor lytes and vitals. DVT and GI prophylaxis. Further recommendationsas per clinical course of the patien t DVT prophylaxis: Subcutaneous heparin GI Prophylaxis: Pepcid PT/OT: Pending Prognosis is guarded
[2020-12-26] MEDS: POTASSIUM CHLORIDE ER 20 MEQ TAB.ER PO SCH ×2 (18:04→19:06)
[2020-12-27] MEDS: oxyCODONE-APAP 7.5-325MG 1 EACH TAB PO PRN ×4 (00:35→23:44)
[2020-12-27] MEDS: DEXTROSE 5%-0.9% NACL 1,000 ML IV SCH ×3 (02:35→22:51)
[2020-12-27 03:56] LABS: Basophils # (A) 0.1 k/uL (0-0.2); Basophils % (A) 1 %; Eosinophils # (A) 1.3 k/uL (0-0.7); Eosinophils % (A) 10 %; HCT 35.6 % (34.0-46.0); HGB 11.6 gm/dL (11.4-16.0); Lymphocytes % (A) 16 %; MCH 26.5 pg (25.0-35.0); MCHC 32.6 g/dL (31.0-37.0); MCV 81.2 fL (80.0-100.0); Mean Platelet Volume 7.4; Monocytes # (A) 0.4 k/uL (0-1.0); Monocytes % (A) 3 %; Neutrophils # (A) 8.5 k/uL (1.3-7.7); Neutrophils % (A) 69 %; Platelet Count 294 k/uL (150-450); RBC 4.38 m/uL (3.80-5.40); RDW 14.5 % (11.5-15.5); WBC 12.4 k/uL (3.8-10.6)
[2020-12-27] MEDS ORDERED: PIPERACILLIN-TAZOBACTAM 3.375 GM in SODIUM CHLORIDE 0.9% 100 ML IVPB SCH (04:00)
[2020-12-27] MEDS: PANTOPRAZOLE 40 MG TABLET PO SCH (08:45)
[2020-12-27] MEDS: SENNOSIDES-DOCUSATE SODIUM 1 EACH TAB PO SCH ×2 (08:46→20:21)
[2020-12-27] MEDS: ENOXAPARIN 40 MG/0.4 ML SYRINGE SQ SCH (08:47)
--- NOTE | 2020-12-27 09:28 | P.PN ---
Subjective Progress Note Date: 12/27/20 Principal diagnosis: L hip pain Ovarian CA vs multiple myeloma Pt s/e this AM. She is lying in bed comfortable eating breakfast. States no pain when lying in bed. She did get up with PT yesterday which was sore in her L hip but she was able to stand with a walker. Denies any numbness/tingling. No new pain or injury. She has not spent a lot of time out of bed. Objective - Vital Signs Vital signs: Vital Signs Temp 98.2 F 12/27/20 04:16 Pulse 125 H 12/27/20 04:16 Resp 16 12/27/20 04:16 BP 144/84 12/27/20 04:16 Pulse Ox 92 L 12/27/20 04:16 Intake & Output 12/26/20 12/27/20 12/27/20 18:59 06:59 18:59 Intake Total 480 2330 Output Total 800 Balance 480 1530 Intake: Intake, IV Titration 900 Amount Dextrose 5%-0.9% NaCl 1, 900 000 ml @ 75 mls/hr IV . [id number] [facility] Rx#:[id number] Oral 480 1430 Output: Urine 800 Other: Voiding Method External Catheter External Catheter # Voids 2 2 - Exam Exam is stable today. No pain with logroll of L hip. No pain with palpation currently. Silverskold test is neg on the L and R. At rest she has no pain. PHYSICAL EXAMINATION: Vitals: stable at this time General: Awake, alert, appropriate for age, in no acute distress. HEENT: No unusual neck masses around region of lateral neck triangle, thyroid, supraclavicular groove. Extremities: Skin warm and dry without no acute lesions, coloration, temperature, skin intact, no tenderness or erythema. Integument: Hairy patches: Absent Dorsal skin dimples: Absent Cafe au lait spots: Absent Surgical incisions: none Palpation: Please see Pain drawing on Intake sheet for further detail. (Tenderness = T, Nontender = NT, Swelling = S, Ecchymosis = E) Findings on Midline and paraspinal palpation and percussion: Cervical: NT Thoracic: NT Lumbar: NT Sacral: NT Special findings: some tenderness to palpation of the posterior left leg but no tenderness around the greater trochanter on the left POSTURAL and MUSCULO-SKELETAL EVALUATION: Neck ROM: [Unrestricted in six directions] Lumbar ROM: [Unrestricted in six directions] Shoulder ROM: Symmetric in abduction, ER/IR Hip ROM: Symmetric in abduction, adduction, ER/IR Knee ROM: Symmetric and intact in Flexion / extension Hands: Normal appearing structure L and R Feet: Normal appearing structure L and R VASCULAR STATUS : Wrist Pulses: [2/4 bilateral radial and ulnar] Pedal Pulses: [2/4 bilateral DP and PT] Color: [Normal] Edema: [None] NEUROLOGIC EXAMINATION: Mental Status: Awake and alert, fully oriented, with normal attention, concentration and memory, and fluent, appropriate speech. Cranial Nerves: I: Olfactory not tested. II: Visual acuity normal, no visual field deficit noted with confrontation. III,IV: Normal pupillary reflexes & intact extraocular movements without nystagmus. V,: Intact symmetrical facial sensation. VII: Intact symmetrical facial motor movement VIII: Hearing intact. IX,X: Intact gag, swallow, & normal voice. XI: Sternocleidomastoid, trapezius function intact. XII: Tongue midline with normal movements. Special Tests: L'hermitte's Sign: Absent Spurling'Sign: Absent Bilateral Cubital percussion test: Absent Bilateral Shauna-Tinel sign - Carpal region: Absent Bilateral Straight Leg Raising: Absent Bilateral Motor Exam (0-5/5, N/T) STRENGTH UPPER EXTREMITY Shoulder Abd (Not part of EVITA Motor score): RIGHT [5] LEFT [5] Elbow Flexors: RIGHT [5] LEFT [5] Elbow Extensor: RIGHT [5] LEFT [5] Wrrist Dorsiflexors: RIGHT [5] LEFT [5] Finger Abductor: RIGHT [5] LEFT [5] Boiler Out: RIGHT [5] LEFT [5] LOWER EXTREMITY Hip Flexor (Not part of EVITA Motor Score): RIGHT [4] LEFT [4] Knee Flexor: RIGHT [5] LEFT [5] Knee Extensor: RIGHT [5] LEFT [5] Ankle Dorsiflexion: RIGHT [5] LEFT [5] Ankle Plantarflexion: RIGHT [5] LEFT [5] EHL: RIGHT [5] LEFT [5] FHL: RIGHT [5] LEFT [5] no focal deficits negative logroll of the bilateral hips negative Silverskiold test REFLEXES Biecp: RIGHT [2] LEFT [2] Tricep: RIGHT [2] LEFT [2] Brachioradialis: RIGHT [2] LEFT [2] Patellar: RIGHT [2] LEFT [2] Achilles: RIGHT [2] LEFT [2] Pathological Reflexes Reyez's: RIGHT [Absent] LEFT [Absent] Babinski: RIGHT [Absent] LEFT [Absent] Clonus: RIGHT [None] LEFT [None] SENSORY Joint Position: [Intact bilaterally] Vibration [Intact bilaterally] Pain and LT sense [Intact C5-T1 and L2-S1] Dermatomal deficit [None] Gait and Functional Evaluation: walks with a walker Hand and finger dexterity intact bilaterally[]. Disdiadochokinesis examination negative[] bilaterally. - Labs CBC & Chem 7: 12/27/20 03:35 12/26/20 11:41 Labs: Abnormal Lab Results - Last 24 Hours (Table) 12/26/20 12/26/20 12/26/20 Range/Units 05:14 11:41 11:41 WBC 13.7 H (3.8-10.6) k/uL MCV 79.9 L (80.0-100.0) fL Neutrophils # 10.0 H (1.3-7.7) k/uL Eosinophils # 0.9 H (0-0.7) k/uL Sodium 132 L 131 L (135-145) mmol/L Potassium 3.3 L 3.3 L (3.5-5.5) mmol/L Chloride 95 L 97 L (96-109) mmol/L Carbon Dioxide 32 H (22-30) mmol/L BUN 20 H (7-17) mg/dL BUN/Creatinine Ratio 35.00 H (12.00-20.00) Ratio Glucose 130 H 128 H (70-110) mg/dL AST 47 H (14-36) U/L Total Protein 5.9 L (6.3-8.2) g/dL Albumin 2.6 L (3.5-5.0) g/dL 12/27/20 Range/Units 03:35 WBC 12.4 H (3.8-10.6) k/uL MCV (80.0-100.0) fL Neutrophils # 8.5 H (1.3-7.7) k/uL Eosinophils # 1.3 H (0-0.7) k/uL Sodium (135-145) mmol/L Potassium (3.5-5.5) mmol/L Chloride (96-109) mmol/L Carbon Dioxide (22-30) mmol/L BUN (7-17) mg/dL BUN/Creatinine Ratio (12.00-20.00) Ratio Glucose (70-110) mg/dL AST (14-36) U/L Total Protein (6.3-8.2) g/dL Albumin (3.5-5.0) g/dL Microbiology - Last 24 Hours (Table) 12/24/20 22:45 Urine Culture - Final Urine,Clean Catch Assessment and Plan Assessment: 70-year-old female with likely metastatic ovarian cancer versus multiple myeloma 1. Left hip pain, Mirels score 10 2. Pathologic superior and inferior pubic rami fx on the R 3. Left illiac and sacral lytic lesions 4. Complex medical history Plan: - CT and imaging is reviewed. There is lytic lesions noted on CT involving the pubic rami on the R with pathologic fracture as well as sacrum and SI region on the R. The L hip shows possible lytic foci within the greater trochanter which is less than 1/3 of the region and does not involved the corticies. There is no IT region lytic foci, however there is evidence of uptake on the bone scan suggesting bone turnover and possible fracture or lesion. There are no other displaced fractures or dislocations noted. Severe FA OA noted b/l hips. -Await pathology from bone biopsy for diagnostic confirmation -Consider MRI of L hip to eval for occult fracture vs pathological fracture -Protected WB LLE with assist at this time. -Pain control as needed -PT/OT -GI/DVT ppx -Will follow Time with Patient: Greater than 30
--- NOTE | 2020-12-27 10:09 | XR ---
EXAMINATION TYPE: XR chest 1V portable DATE OF EXAM: 12/27/2020 COMPARISON: 12/22/2020 HISTORY: CHF TECHNIQUE: Single frontal view of the chest is obtained. FINDINGS: There is a focal area of pleural thickening on the right lateral thorax consistent with lo culated fluid or pleural mass. Is mild elevation the right hemidiaphragm possibly secondary to mild a telectasis. There is a small focal area of pleural thickening along the left lateral chest as well. T he heart size is normal and the pulmonary vasculature is not congested. There is no pneumothorax. IMPRESSION: Bilateral pleural mass/thickening/loculated pleural fluid. Probable right lower lobe ate lectasis. No evidence of acute CHF.
[2020-12-27 10:25] LABS: African American GFR (CKD) 108.5 (60.0-200.0); Albumin 2.8 g/dL (3.80-4.90); Albumin/Globulin Ratio 1.04 (1.60-3.17); Anion Gap 8.7 mmol/L (4.00-12.00); BUN/Creat Ratio 26.67 Ratio (12.00-20.00); Calcium 8.7 mg/dL (8.7-10.3); Carbon Dioxide 31.3 mmol/L (21.6-31.8); Globulin 2.7 g/dL (1.6-3.3); Magnesium 1.3 mg/dL (1.5-2.4); Non-African American GFR(CKD) 93.7 (60.0-200.0); Potassium 3.4 mmol/L (3.5-5.5); Total Bilirubin 0.3 mg/dL (0.2-1.2); Total Protein 5.5 g/dL (6.2-8.2)
[2020-12-27] MEDS ORDERED: Magnesium Replacement Protocol 1 EACH MISC MISCELLANE PRN (11:43)
[2020-12-27] MEDS ORDERED: Potassium Replacement Protocol 1 EACH MISC MISCELLANE PRN (11:43)
[2020-12-27] MEDS: MAGNESIUM SULFATE-D5W PMX 1 GM in DEXTROSE/WATER 1 100ML.BAG IVPB SCH ×3 (11:57→14:05)
[2020-12-27] MEDS: POTASSIUM CHLORIDE ER 20 MEQ TAB.ER PO SCH ×2 (11:58→13:03)
[2020-12-27] MEDS: polyethylene glycoL 3350 17 GM POWD.PACK PO SCH (20:21)
--- NOTE | 2020-12-27 22:15 | P.PN ---
Subjective This is a pleasant 70 years old female who was transferred from [facility] for hypercalcemia and left and right rib fracture and metastatic bone lesions suspected. When I saw the patient today she just came from her bone biopsy and she was sleeping and she could not provide information that was obtained from staff and records Looks like patient was complaining of from some chest tightness and workup showed some subcentimeter pulmonary nodules. Also she's been complaining of from some urinary symptoms and urgency, urinalysis is suspicious for infection therefore urine culture is requested and ceftriaxone was started. CEA-125 increased to, CT of the brain is negative for acute process. Chest x- ray showed bilateral atelectasis versus infiltrate Bone scan showing right mid ribs and left ribs lytic lesions coincided with soft tissue masses on CAT scan. Multiple lesions of the calvarium and left hip and multiple myeloma suspected per radiologist CT of the abdomen and pelvis and chest without contrast showed multiple pulmonary nodules, T5 and T10 lucencies and 1.5 cm lytic lesions in the left iliac bone Currently calcium is 12. And she is on pamidronate drip as well as normal splint 100 mL per hour and ceftriaxone as above 12/25/2020 Patient is confused today although she is awake and alert, she is drowsy but she will wake up easily and she can stay up. She complains from some mild pain in the hip areas. She denies chest pain or abdominal pain. Patient is poor historian today. She could not tell if she has urinary symptoms or pulmonary symptoms. Her labs from today are pending. Yesterday she had a CT of the bone with biopsy, there was an incidental finding of a right ovarian mass, DENTAL LAB TECHNICIAN team were consulted Patient remains on D5 normal saline at 75 mL/h, pamidronate drip and ceftriaxone for suspected UTI 12/26/2020 For the third day patient remains very drowsy, she is minimally interactive with my encounter. I tried to wake her up several times, she'll open her eyes and answer 1 or 2 questions for me and then go back to sleep. However patient can say she is in hospital and that she is sick with her bone disease. She was complaining of from pain in her chest and rib area, both sides right and left also on the left groin area/flank area. Patient was noticed takes several medications including Xanax, fentanyl, Percocet. And Dilaudid. Most of Xanax and Dilaudid, Fentanyl and Percocet and keep monitoring and reassess her pain level and alertness. She has CAT scan without contrast today showing lytic lesions involving the anterior margin of the pubic rami bilaterally with pathological fracture involving the right superior pubic ramus, minimally displaced Urine culture showing no growth, subtraction was stopped. Check procalcitonin 12/27/20 Patient is more awake and alert today after stopping the Dilaudid Xanax. She's been complaining of from little pain in the middle of her back and little pain in her ribs. Also with mild pain on the sides, left flank area more than right. Patient is seen in bed most of the time. But she is complaining of from the total exertional dyspnea so we'll repeat chest x-ray. Also she has increased frequency, UTI is suspected and currently she is on an tibiotic. Chest x-ray: Bilateral pleural mass/thickening/loculated pleural fluid. Probable right lower lobe atelectasis. No evidence of acute CHF, patient has no fever, she has mild leukocytosis and Pro-consult on him is elevated at 27. Because of this was started the patient on Zosyn and we'll consult ID team. Objective - Vital Signs Vital signs: Vital Signs Temp 99.0 F 12/27/20 20:37 Pulse 119 H 12/27/20 20:37 Resp 16 12/27/20 20:37 BP 133/78 12/27/20 20:37 Pulse Ox 95 12/27/20 20:37 Intake & Output 12/27/20 12/27/20 12/28/20 06:59 18:59 06:59 Intake Total 2330 Output Total 800 800 Balance 1530 -800 Intake: Intake, IV Titration 900 Amount Dextrose 5%-0.9% NaCl 1, 900 000 ml @ 75 mls/hr IV . [id number] [facility] Rx#:[id number] Oral 1430 Output: Urine 800 800 Other: Voiding Method External Catheter External Catheter # Voids 2 - Exam -GENERAL: he patient is alert but confused, answers some questions appropriately but most of the time she answers differently, not in any acute distress. Obese HEENT: Pupils are round and equally reacting to light. EOMI. No scleral icterus. No conjunctival pallor. Normocephalic, atraumatic. No pharyngeal erythema. No thyromegaly. CARDIOVASCULAR: S1 and S2 present. No murmurs, rubs, or gallops. PULMONARY: Chest is clear to auscultation, no wheezing or crackles. ABDOMEN: Soft, nontender, nondistended, normoactive bowel sounds. No palpable organomegaly. MUSCULOSKELETAL: No joint swelling or deformity. EXTREMITIES: No cyanosis, clubbing, or pedal edema. NEUROLOGICAL: Gross neurological examination did not reveal any focal deficits. SKIN: No rashes. no petechiae. - Labs CBC & Chem 7: 12/27/20 03:35 12/27/20 03:35 Labs: Abnormal Lab Results - Last 24 Hours (Table) 12/27/20 12/27/20 12/27/20 Range/Units 03:35 03:35 03:35 WBC 12.4 H (3.8-10.6) k/uL Neutrophils # 8.5 H (1.3-7.7) k/uL Eosinophils # 1.3 H (0-0.7) k/uL Sodium 134 L (135-145) mmol/L Potassium 3.4 L (3.5-5.5) mmol/L Chloride 94 L (96-109) mmol/L BUN/Creatinine Ratio 26.67 H (12.00-20.00) Ratio Glucose 119 H (70-110) mg/dL Magnesium 1.3 L (1.5-2.4) mg/dL AST 43 H (13-35) U/L Total Protein 5.5 L (6.2-8.2) g/dL Albumin 2.80 L (3.80-4.90) g/dL Albumin/Globulin Ratio 1.04 L (1.60-3.17) g/dL Procalcitonin 27.44 H (0.02-0.09) ng/mL Assessment and Plan Assessment: Metastatic bone lesion is suspected on bone scan with hypercalcemia. Patient with right and left triple tic lesions, multiple lesions on the calvarium and left hip. Also T5 and T9. Bilateral lytic lesions of the pubic rami with pathological fracture on the right superior pubic ramus, minimally displaced Right loculated pneumonia with elevated procalcitonin Right ovarian mass (per Dr. Moreno, she does not believe that's ovarian mass responsible for renal metastatic disease, and recommended outpatient follow-up ) Metabolic encephalopathy secondary to hypercalcemia and UTI Multiple subcentimeter pulmonary nodule Acute urinary tract infection Obesity with BMI of 31.2 Plan: This is a pleasant 70 years old female who presents with multiple bone lytic lesions suspicious for metastases and hypercalcemia , improved normal saline , pain management Follow-up biopsy of the bone done on 12/24 Follow-up radiation oncology Start Hoang, consult ID team Hematology/oncology team on the case Labs and medication were reviewed.. Continue same treatment. Continue with symptomatic treatment. Resume home medication. Monitor lytes and vitals. DVT and GI prophylaxis. Further recommendationsas per clinical course of the nguyen barrera DVT prophylaxis: Subcutaneous heparin GI Prophylaxis: Pepcid PT/OT: Pending Prognosis is guarded
[2020-12-27] MEDS ORDERED: PIPERACILLIN-TAZOBACTAM 3.375 GM in SODIUM CHLORIDE 0.9% 100 ML IVPB STA (22:20)
[2020-12-28] MEDS: PIPERACILLIN-TAZOBACTAM 3.375 GM in SODIUM CHLORIDE 0.9% 100 ML IVPB SCH ×3 (04:24→20:53)
[2020-12-28] MEDS: oxyCODONE-APAP 7.5-325MG 1 EACH TAB PO PRN ×3 (05:26→23:34)
[2020-12-28] MEDS: ENOXAPARIN 40 MG/0.4 ML SYRINGE SQ SCH (08:50)
[2020-12-28] MEDS: PANTOPRAZOLE 40 MG TABLET PO SCH (08:50)
[2020-12-28] MEDS: SENNOSIDES-DOCUSATE SODIUM 1 EACH TAB PO SCH ×2 (08:50→20:51)
--- NOTE | 2020-12-28 10:30 | P.PN ---
Subjective Progress Note Date: 12/28/20 Principal diagnosis: L hip pain Ovarian CA vs multiple myeloma Upon entering room patient was sitting up in chair. Patient says she has been feeling better this morning. She says she is just little bit tired. She says she has been up and around her room more often lately. She says she has used the bathroom a couple different times and has had bowel movements. She denies any fever, chest pain, nausea vomiting, diarrhea. Patient says she is in less pain as well. Objective - Vital Signs Vital signs: Vital Signs Temp 98.3 F 12/28/20 05:00 Pulse 117 H 12/28/20 05:00 Resp 16 12/28/20 05:00 BP 126/72 12/28/20 05:00 Pulse Ox 96 12/28/20 05:00 Intake & Output 12/27/20 12/28/20 12/28/20 18:59 06:59 18:59 Intake Total 830 Output Total 800 700 Balance -800 830 -700 Intake: Oral 830 Output: Urine 800 700 Other: Voiding Method External Catheter External Catheter # Bowel Movements 0 - Exam Patient says she is not in pain today she is able to wiggle her toes pulses are intact bilaterally in lower extremities. No pain while while elevating left leg. stable at this time - Labs CBC & Chem 7: 12/27/20 03:35 12/27/20 03:35 Labs: Abnormal Lab Results - Last 24 Hours (Table) 12/27/20 Range/Units 03:35 Procalcitonin 27.44 H (0.02-0.09) ng/mL Assessment and Plan Plan: Assessment: 70-year-old female with likely metastatic ovarian cancer versus multiple myeloma 1. Left hip pain, Mirels score 10 2. Pathologic superior and inferior pubic rami fx on the R 3. Left illiac and sacral lytic lesions 4. Complex medical history Plan: - CT and imaging is reviewed. There is lytic lesions noted on CT involving the pubic rami on the R with pathologic fracture as well as sacrum and SI region on the R. The L hip shows possible lytic foci within the greater trochanter which is less than 1/3 of the region and does not involved the corticies. There is no IT region lytic foci, however there is evidence of uptake on the bone scan suggesting bone turnover and possible fracture or lesion. There are no other displaced fractures or dislocations noted. Severe FA OA noted b/l hips. -Await pathology from bone biopsy for diagnostic confirmation -Consider MRI of L hip to eval for occult fracture vs pathological fracture -Protected WB LLE with assist at this time. -Pain control as needed -PT/OT -GI/DVT ppx -Will follow Time with Patient: Less than 30
[2020-12-28] MEDS: DEXTROSE 5%-0.9% NACL 1,000 ML IV SCH (16:05)
[2020-12-28] MEDS ORDERED: ACETAMINOPHEN TAB 325 MG TAB PO PRN (17:46)
[2020-12-28] MEDS: polyethylene glycoL 3350 17 GM POWD.PACK PO SCH (20:53)
--- NOTE | 2020-12-29 01:25 | P.PN ---
Subjective This is a pleasant 70 years old female who was transferred from [facility] for hypercalcemia and left and right rib fracture and metastatic bone lesions suspected. When I saw the patient today she just came from her bone biopsy and she was sleeping and she could not provide information that was obtained from staff and records Looks like patient was complaining of from some chest tightness and workup showed some subcentimeter pulmonary nodules. Also she's been complaining of from some urinary symptoms and urgency, urinalysis is suspicious for infection therefore urine culture is requested and ceftriaxone was started. CEA-125 increased to, CT of the brain is negative for acute process. Chest x- ray showed bilateral atelectasis versus infiltrate Bone scan showing right mid ribs and left ribs lytic lesions coincided with soft tissue masses on CAT scan. Multiple lesions of the calvarium and left hip and multiple myeloma suspected per radiologist CT of the abdomen and pelvis and chest without contrast showed multiple pulmonary nodules, T5 and T10 lucencies and 1.5 cm lytic lesions in the left iliac bone Currently calcium is 12. And she is on pamidronate drip as well as normal splint 100 mL per hour and ceftriaxone as above 12/25/2020 Patient is confused today although she is awake and alert, she is drowsy but she will wake up easily and she can stay up. She complains from some mild pain in the hip areas. She denies chest pain or abdominal pain. Patient is poor historian today. She could not tell if she has urinary symptoms or pulmonary symptoms. Her labs from today are pending. Yesterday she had a CT of the bone with biopsy, there was an incidental finding of a right ovarian mass, MIRROR FRAMER team were consulted Patient remains on D5 normal saline at 75 mL/h, pamidronate drip and ceftriaxone for suspected UTI 12/26/2020 For the third day patient remains very drowsy, she is minimally interactive with my encounter. I tried to wake her up several times, she'll open her eyes and answer 1 or 2 questions for me and then go back to sleep. However patient can say she is in hospital and that she is sick with her bone disease. She was complaining of from pain in her chest and rib area, both sides right and left also on the left groin area/flank area. Patient was noticed takes several medications including Xanax, fentanyl, Percocet. And Dilaudid. Most of Xanax and Dilaudid, Fentanyl and Percocet and keep monitoring and reassess her pain level and alertness. She has CAT scan without contrast today showing lytic lesions involving the anterior margin of the pubic rami bilaterally with pathological fracture involving the right superior pubic ramus, minimally displaced Urine culture showing no growth, subtraction was stopped. Check procalcitonin 12/27/20 Patient is more awake and alert today after stopping the Dilaudid Xanax. She's been complaining of from little pain in the middle of her back and little pain in her ribs. Also with mild pain on the sides, left flank area more than right. Patient is seen in bed most of the time. But she is complaining of from the total exertional dyspnea so we'll repeat chest x-ray. Also she has increased frequency, UTI is suspected and currently she is on an tibiotic. Chest x-ray: Bilateral pleural mass/thickening/loculated pleural fluid. Probable right lower lobe atelectasis. No evidence of acute CHF, patient has no fever, she has mild leukocytosis and Pro-consult on him is elevated at 27. Because of this was started the patient on Zosyn and we'll consult ID team. 12/28/20 Patient is fully awake and oriented, lying in bed with minimal pain, she states improving pain in her pelvic area, rib area and back. Her dyspnea is also better. No chest pain still have some cough. She was working for the bone biopsy result however she was complaining of from some exertional dyspnea and throatcalcitonin was found elevated at 27. Patient was started on Zosyn. Repeat chest x-ray from today showing Bilateral pleural mass/thickening/loculated pleural fluid. Probable right lower lobe atelectasis. No evidence of acute CHF. CT of the chest without contrast is ordered tomorrow. Check labs tomorrow. Patient is slightly tachycardic related to her sepsis and cholecystitis.EKG is ordered Orthopedic team they consider MRI of the hip. We'll defer decision to them and for physical therapy. Objective - Vital Signs Vital signs: Vital Signs Temp 98.6 F 12/28/20 12:22 Pulse 124 H 12/28/20 12:22 Resp 16 12/28/20 05:00 BP 133/81 12/28/20 12:22 Pulse Ox 94 L 05/02/21 12:22 Intake & Output 12/27/20 12/28/20 12/28/20 18:59 06:59 18:59 Intake Total 830 Output Total 800 700 Balance -800 830 -700 Intake: Oral 830 Output: Urine 800 700 Other: Voiding Method External Catheter External Catheter # Bowel Movements 0 - Exam -GENERAL: he patient is alert but confused, answers some questions appropriately but most of the time she answers differently, not in any acute distress. Obese HEENT: Pupils are round and equally reacting to light. EOMI. No scleral icterus. No conjunctival pallor. Normocephalic, atraumatic. No pharyngeal erythema. No thyromegaly. CARDIOVASCULAR: S1 and S2 present. No murmurs, rubs, or gallops. PULMONARY: Chest is clear to auscultation, no wheezing or crackles. ABDOMEN: Soft, nontender, nondistended, normoactive bowel sounds. No palpable organomegaly. MUSCULOSKELETAL: No joint swelling or deformity. EXTREMITIES: No cyanosis, clubbing, or pedal edema. NEUROLOGICAL: Gross neurological examination did not reveal any focal deficits. SKIN: No rashes. no petechiae. - Labs CBC & Chem 7: 12/27/20 03:35 12/28/20 11:25 Assessment and Plan Assessment: Metastatic bone lesion is suspected on bone scan with hypercalcemia. Patient with right and left triple tic lesions, multiple lesions on the calvarium and left hip. Also T5 and T9. Bilateral lytic lesions of the pubic rami with pathological fracture on the right superior pubic ramus, minimally displaced Right loculated pneumonia with elevated procalcitonin Right ovarian mass (per Dr. Moreno, she does not believe that's ovarian mass responsible for renal metastatic disease, and recommended outpatient follow-up ) Metabolic encephalopathy. Completely resolved Multiple subcentimeter pulmonary nodule Acute urinary tract infection Obesity with BMI of 31.2 Plan: This is a pleasant 70 years old female who presents with multiple bone lytic lesions suspicious for metastases and hypercalcemia , improved normal saline , pain management Follow-up biopsy of the bone done on 12/24 Follow-up radiation oncology Start Zosyn, follow-up with ID team Hematology/oncology team on the case Follow-up CT of the chest Labs and medication were reviewed.. Continue same treatment. Continue with symptomatic treatment. Resume home medication. Monitor lytes and vitals. DVT and GI prophylaxis. Further recommendationsas per clinical course of the patient DVT prophylaxis: Subcutaneous heparin GI Prophylaxis: Pepcid PT/OT: Pending Prognosis is guarded
[2020-12-29] MEDS: PIPERACILLIN-TAZOBACTAM 3.375 GM in SODIUM CHLORIDE 0.9% 100 ML IVPB SCH ×3 (03:55→19:38)
[2020-12-29 06:16] LABS: Basophils # (A) 0.1 k/uL (0-0.2); Basophils % (A) 1 %; Eosinophils # (A) 0.7 k/uL (0-0.7); Eosinophils % (A) 6 %; HCT 32.7 % (34.0-46.0); Lymphocytes # (A) 1.5 k/uL (1.0-4.8); Lymphocytes % (A) 12 %; MCH 27.5 pg (25.0-35.0); MCHC 33.8 g/dL (31.0-37.0); MCV 81.3 fL (80.0-100.0); Mean Platelet Volume 7.3; Monocytes # (A) 0.5 k/uL (0-1.0); Monocytes % (A) 4 %; Neutrophils # (A) 9.4 k/uL (1.3-7.7); Neutrophils % (A) 76 %; Platelet Count 354 k/uL (150-450); RBC 4.02 m/uL (3.80-5.40); RDW 14.7 % (11.5-15.5); WBC 12.3 k/uL (3.8-10.6)
--- NOTE | 2020-12-29 07:40 | CONS ---
CONSULTATION DATE OF SERVICE: 12/28/2020 REASON FOR CONSULTATION: Pneumonia. HISTORY OF PRESENT ILLNESS: The patient is a 70-year-old female who presented to [facility] ER for evaluation of chest tightness and pain. The patient initially presented to [facility] with these symptoms. The patient did have a workup done at that facility with evidence of multiple bilateral pulmonary nodules and bone lesion with concern for possible metastatic disease for which the patient has been transferred to [facility] for further evaluation. The patient previously did have a CT with evidence of a right ovarian cyst. Surgery was consulted for possible management. The patient has been evaluated by ACCOUNT SUPPORT ANALYST doctor Wilder at [facility]. Apparently the patient was advised workup in the outpatient setting. However, no biopsy has been done. During this hospital stay the patient has been afebrile. The patient did have an admission white count that was normal. Subsequently white count up to 13.7, down from 12.4, creatinine has been normal, AST mildly elevated. The patient did have procalcitonin yesterday that was 27.44. Urine was moderately positive. Shah PCR was negative. The patient did have a CT of abdomen and pelvis and chest completed on admission, which did show multiple osteolytic focus suggestive of metastatic disease or multiple myeloma. Bilateral lower lobe patchy infiltrate or atelectasis not significantly different from previous exam. The patient also noticed to have of the right knee with concern for possible pathologic fracture. Orthopedics has been following the patient and a CT-guided aspirate of the hip has been requested. With her elevated procalcitonin and concern for possible pneumonia, Infectious Disease was consulted today for further management of antibiotic therapy. The patient at time of evaluation denies having any fever or any chills. The patient states she is feeling better. Breathing comfortably. The patient denies any chest pain. Occasional cough. No nausea, no vomiting. No abdominal pain or diarrhea. REVIEW OF SYSTEMS: Positive points have been mentioned in HPI. Rest of systems are negative. PAST MEDICAL HISTORY: Ovarian cyst. The patient has not been investigated further. PAST SURGICAL HISTORY: Tubal ligation. SOCIAL HISTORY: Denies smoking, drinking, drug use. FAMILY HISTORY: No pertinent findings noticed. ALLERGIES: HYDROCODONE AND CELEBREX. MEDICATIONS: The patient is currently on Tylenol, Lovenox, Duragesic patch, Narcan, Zofran, Percocet, Protonix, Zosyn added today, MiraLAX and Senokot. PHYSICAL EXAMINATION: VITAL SIGNS: Her blood pressure is 136/60 with a pulse of 113, temperature 98.3, she is 93% on 2 L nasal cannula. GENERAL DESCRIPTION: Patient is an elderly female lying in bed in no distress. HEENT: Examination shows no pallor or scleral icterus. Oral mucous membrane is dry. NECK: Trachea central, no thyromegaly. LUNGS: Unlabored breathing, clear to auscultation anteriorly. No wheeze or crackle. HEART: S1-S2, regular rate and rhythm. ABDOMEN: Soft, no tenderness. No guarding or rigidity. EXTREMITIES: No edema of the feet. SKIN: No rash or mass palpable. NEUROLOGICAL: Patient is awake, alert, oriented times three. Mood and affect normal. LABS: Hemoglobin 11.1, white count 12.4, BUN of 15, creatinine 0.6, AST now mildly elevated. Procalcitonin 7.44. DIAGNOSTIC IMPRESSION AND PLAN: Patient admitted to the hospital with chest pain, shortness of breath. This patient did have evidence of multiple pulmonary nodules and evidence of metastatic disease and possible pathological fracture, status post CT-guided aspirate with biopsy which is currently pending. She was noted to have elevated procalcitonin, concern for possible pneumonia. However, clinically, the patient did not have any fever or significant elevated white count. No significant respiratory symptoms or cough or sputum production. Clinical suspicion low for pneumonia. However, there is a question of possible loculated fluid on the x-ray, which should be investigated further. PLAN: 1. We will obtain a CT of the chest to further workup the loculated effusion and make sure there is no evidence of any consolidation. 2. Try to obtain sputum for Gram stain and culture. 3. Continue the patient on empiric Zosyn 3.375 g q.8 hours while workup is completed. 4. We will follow on clinical condition and further adjust medication if needed. Thank you for this consultation. Will follow this patient along with you. MMODL / IJN: [id number] /
[2020-12-29] MEDS: PANTOPRAZOLE 40 MG TABLET PO SCH (08:30)
[2020-12-29] MEDS: SENNOSIDES-DOCUSATE SODIUM 1 EACH TAB PO SCH ×2 (08:30→20:43)
[2020-12-29] MEDS: ENOXAPARIN 40 MG/0.4 ML SYRINGE SQ SCH (08:30)
[2020-12-29] MEDS: FUROSEMIDE 10 MG/ML 4 ML VIAL IV SCH ×2 (08:31→20:42)
[2020-12-29 09:24] LABS: African American GFR (CKD) 108.5 (60.0-200.0); BUN/Creat Ratio 21.67 Ratio (12.00-20.00); Calcium 8.1 mg/dL (8.7-10.3); Magnesium 1.7 mg/dL (1.5-2.4); Non-African American GFR(CKD) 93.7 (60.0-200.0); Potassium 4.1 mmol/L (3.5-5.5)
[2020-12-29] MEDS: oxyCODONE-APAP 7.5-325MG 1 EACH TAB PO PRN ×2 (11:37→19:38)
--- NOTE | 2020-12-29 12:49 | CT ---
EXAMINATION TYPE: CT chest wo con DATE OF EXAM: 12/29/2020 COMPARISON: CT December 22, 2020 HISTORY: Pneumonia, loculated effusion. CT DLP: 484.7 mGycm. Automated Exposure Control for Dose Reduction was Utilized. TECHNIQUE: CT scan of the thorax is performed without IV contrast. FINDINGS: LUNGS: There are small to tiny bilateral pleural effusions or fluid collection. There is mild to mode rate associated compressive atelectasis. No pneumothorax seen bilaterally. MEDIASTINUM: Lack of IV contrast is noted to limit evaluation for mediastinal and especially hilar ad enopathy. There are no definitive greater than 1 cm hilar or mediastinal lymph nodes. No cardiomega ly or pericardial effusion is seen. OTHER: Some diverticula visualized portion of the colon near the splenic flexure. Slight scoliotic c urvature with multilevel spurring in the spine. Persistent destructive lytic lesion with soft tissue mass right lateral fourth and fifth ribs with ad ditional lytic expansile lesion right lateral seventh rib axial image 31. Lasix fracture right latera l eighth rib axial image 37. Lytic destructive lesion anterior T11 vertebra left of midline axial tommy ge 41 small lytic lesion posterior superior T6 level sagittal image 48. IMPRESSION: Persistent lytic destructive right rib lesions some with soft tissue mass consistent with osseous metastatic disease and/or multiple myeloma, correlate clinically. Persistence small to tiny bilateral pleural effusions and/or fluid collections with associated [id number] basilar alix sive atelectasis. No significant change from recent CT. No enlarging fluid collections noted.
--- NOTE | 2020-12-29 13:21 | P.PN ---
Progress Note - Text Progress Note Date: 12/29/20 12/29/2020 Patient will be requiring a hospital bed upon discharge along with a pillow top gel mattress to assist with position changes and pain relief secondary to metastatic cancer pain. Patient has limited mobility, impaired nutrition, and urinary incontinence secondary to cancer. Patient will also require a bedside commode as she is room confined and unable to make it to the bathroom secondary to metastatic cancer and would be bed confined.
--- NOTE | 2020-12-29 14:05 | P.PN ---
<Eduardo Moss - Last Filed: 12/29/20 13:27> Subjective Progress Note Date: 01/25/21 Principal diagnosis: L hip pain Ovarian CA vs multiple myeloma Upon entering room patient was sitting up in chair. Patient says she has been feeling better this morning. She says she is just little bit tired. She says she has been up and around her room more often lately. She says she has used the bathroom a couple different times and has had bowel movements. She denies any fever, chest pain, nausea vomiting, diarrhea. Patient says she is in less pain as well. Patient says she will be discharge today to go home. Objective - Vital Signs Vital signs: Vital Signs Temp 97.9 F 12/29/20 13:05 Pulse 99 12/29/20 13:05 Resp 18 12/29/20 13:05 BP 130/72 12/29/20 13:05 Pulse Ox 98 12/29/20 13:05 Intake & Output 12/28/20 12/29/20 12/29/20 18:59 06:59 18:59 Intake Total 2530 1180 Output Total 700 600 Balance 1830 580 Intake: Intake, IV Titration 1000 Amount Dextrose 5%-0.9% NaCl 1, 900 000 ml @ 75 mls/hr IV . [id number] [facility] Rx#:[id number] Piperacillin-Tazobactam 3 100 .375 gm In Sodium Chloride 0.9% 100 ml @ 200 mls/hr IVPB ONCE STA Rx#:[id number] Oral 1530 1180 Output: Urine 700 600 Other: Voiding Method Bedside Commode Bedside Commode Bedside Commode External Catheter External Catheter # Voids 3 3 2 # Bowel Movements 2 1 1 - Exam Patient says she is not in pain today she is able to wiggle her toes pulses are intact bilaterally in lower extremities. No pain while while elevating left leg. stable at this time - Labs CBC & Chem 7: 12/29/20 05:24 12/29/20 05:24 Labs: Abnormal Lab Results - Last 24 Hours (Table) 12/29/20 12/29/20 12/29/20 Range/Units 05:24 05:24 05:24 WBC 12.3 H (3.8-10.6) k/uL Hgb 11.0 L (11.4-16.0) gm/dL Hct 32.7 L (34.0-46.0) % Neutrophils # 9.4 H (1.3-7.7) k/uL BUN/Creatinine Ratio 21.67 H (12.00-20.00) Ratio Glucose 119 H (70-110) mg/dL Calcium 8.1 L (8.7-10.3) mg/dL Procalcitonin 25.87 H (0.02-0.09) ng/mL Assessment and Plan Plan: Assessment: 70-year-old female with likely metastatic ovarian cancer versus multiple myeloma 1. Left hip pain, Mirels score 10 2. Pathologic superior and inferior pubic rami fx on the R 3. Left illiac and sacral lytic lesions 4. Rib and vertebral lytic lesions 5. Complex medical history Plan: - CT and imaging is reviewed. There is lytic lesions noted on CT involving the pubic rami on the R with pathologic fracture as well as sacrum and SI region on the R. The L hip shows possible lytic foci within the greater trochanter which is less than 1/3 of the region and does not involved the corticies. There is no IT region lytic foci, however there is evidence of uptake on the bone scan suggesting bone turnover and possible fracture or lesion. There are no other displaced fractures or dislocations noted. Severe FA OA noted b/l hips. CT chest shows lytic lesions throughout. Fracture of eighth right rib -Await pathology from bone biopsy for diagnostic confirmation -Consider MRI of L hip to eval for occult fracture vs pathological fracture -Protected WB LLE with assist at this time. -Pain control as needed -PT/OT -GI/DVT ppx Time with Patient: Less than 30 <Sampson Deluca - Last Filed: 12/29/20 14:05> Objective - Vital Signs Vital signs: Vital Signs Temp 97.9 F 12/29/20 13:05 Pulse 99 12/29/20 13:05 Resp 18 12/29/20 13:05 BP 130/72 12/29/20 13:05 Pulse Ox 98 12/29/20 13:05 Intake & Output 12/28/20 12/29/20 12/29/20 18:59 06:59 18:59 Intake Total 2530 1180 Output Total 700 600 Balance 1830 580 Weight 74.843 kg Intake: Intake, IV Titration 1000 Amount Dextrose 5%-0.9% NaCl 1, 900 000 ml @ 75 mls/hr IV . [id number] [facility] Rx#:[id number] Piperacillin-Tazobactam 3 100 .375 gm In Sodium Chloride 0.9% 100 ml @ 200 mls/hr IVPB ONCE STA Rx#:[id number] Oral 1530 1180 Output: Urine 700 600 Other: Voiding Method Bedside Commode Bedside Commode Bedside Commode External Catheter External Catheter # Voids 3 3 2 # Bowel Movements 2 1 1 - Labs CBC & Chem 7: 12/29/20 05:24 12/29/20 05:24 Labs: Abnormal Lab Results - Last 24 Hours (Table) 12/29/20 12/29/20 12/29/20 Range/Units 05:24 05:24 05:24 WBC 12.3 H (3.8-10.6) k/uL Hgb 11.0 L (11.4-16.0) gm/dL Hct 32.7 L (34.0-46.0) % Neutrophils # 9.4 H (1.3-7.7) k/uL BUN/Creatinine Ratio 21.67 H (12.00-20.00) Ratio Glucose 119 H (70-110) mg/dL Calcium 8.1 L (8.7-10.3) mg/dL Procalcitonin 25.87 H (0.02-0.09) ng/mL
--- NOTE | 2020-12-29 18:36 | P.PN ---
Subjective Progress Note Date: 12/29/20 Principal diagnosis: intractable pain related to malignancy, hypercalcemia of malignancy continue patient hasno new complaints today, plan is for some radiation. 10 point review of systems is otherwise negative Objective - Vital Signs Vital signs: Vital Signs Temp 97.9 F 12/29/20 13:05 Pulse 99 12/29/20 13:05 Resp 18 12/29/20 13:05 BP 130/72 12/29/20 13:05 Pulse Ox 98 12/29/20 13:05 Intake & Output 12/28/20 12/29/20 12/29/20 18:59 06:59 18:59 Intake Total 2530 1180 Output Total 700 600 Balance 1830 580 Weight 74.843 kg Intake: Intake, IV Titration 1000 Amount Dextrose 5%-0.9% NaCl 1, 900 000 ml @ 75 mls/hr IV . [id number] [facility] Rx#:[id number] Piperacillin-Tazobactam 3 100 .375 gm In Sodium Chloride 0.9% 100 ml @ 200 mls/hr IVPB ONCE STA Rx#:[id number] Oral 1530 1180 Output: Urine 700 600 Other: Voiding Method Bedside Commode Bedside Commode Bedside Commode External Catheter External Catheter # Voids 3 3 1 # Bowel Movements 2 1 1 - Constitutional General appearance: Present: average body habitus, cooperative, no acute distress - EENT Eyes: Present: anicteric sclerae, EOMI ENT: Present: hearing grossly normal - Respiratory Respiratory: bilateral: CTA - Cardiovascular Heart sounds: normal: S1, S2 - Gastrointestinal General gastrointestinal: Present: normal bowel sounds, soft - Neurologic Neurologic: Present: CNII-XII intact - Musculoskeletal Musculoskeletal: Present: generalized weakness, strength equal bilaterally - Psychiatric Psychiatric: Present: A&O x's 3, appropriate affect, intact judgment & insight - Labs CBC & Chem 7: 12/29/20 05:24 12/29/20 05:24 Labs: Abnormal Lab Results - Last 24 Hours (Table) 12/29/20 12/29/20 12/29/20 Range/Units 05:24 05:24 05:24 WBC 12.3 H (3.8-10.6) k/uL Hgb 11.0 L (11.4-16.0) gm/dL Hct 32.7 L (34.0-46.0) % Neutrophils # 9.4 H (1.3-7.7) k/uL BUN/Creatinine Ratio 21.67 H (12.00-20.00) Ratio Glucose 119 H (70-110) mg/dL Calcium 8.1 L (8.7-10.3) mg/dL Procalcitonin 25.87 H (0.02-0.09) ng/mL Assessment and Plan (1) Metastatic disease Narrative/Plan: Bone biopsy specimen has been sent to the [facility] for further studies, no primary source readily identifiable on the pathology. Based on malignancy primary, treatment recommendations can then be discussed. Patient encouraged to participate in physical therapy to improve performance status so, if she decides to pursue systemic therapy she will be in shape for the same. Current Visit: Yes Status: Acute Priority: High Code(s): C79.9 - SECONDARY MALIGNANT NEOPLASM OF UNSPECIFIED SITE SNOMED Code(s): 100071780 (2) Cancer associated pain Narrative/Plan: Radiation planned. Pain medications being adjusted. Case management helping patient with durable medical equipment, PT/OT at home Current Visit: Yes Status: Acute Priority: High Code(s): G89.3 - NEOPLASM RELATED PAIN (ACUTE) (CHRONIC) SNOMED Code(s): 61148582821666 (3) Hypercalcemia Narrative/Plan: 2/ mailgnancy, calcium level improved status post dose of aredia 12/23. Bisphosphonate or rank ligand inhibitor therapy will be ongoing. Current Visit: Yes Status: Acute Priority: High Code(s): E83.52 - HYPERCALCEMIA SNOMED Code(s): 58817951 Plan: attests: I have seen and examined patient, performed history and physical, developed impression and plan of care. Discussed with dictator. Agree with documentation, documented as a scribe
[2020-12-29 20:36] VITALS: TEMP 98.5
[2020-12-29] MEDS: polyethylene glycoL 3350 17 GM POWD.PACK PO SCH (20:43)
--- NOTE | 2020-12-29 22:52 | PN ---
PROGRESS NOTE DATE OF SERVICE: 12/29/2020 REASON FOR FOLLOWUP: pneumonia. INTERVAL HISTORY: The patient is currently afebrile. The patient is breathing comfortably on room air. The patient denies having any chest pain, shortness of breath or cough. No abdominal pain or diarrhea. PHYSICAL EXAMINATION: Blood pressure 150/83 with a pulse of 99, temperature 98.5. She is 96% on room air. General description is an elderly female up in the chair in no distress. RESPIRATORY SYSTEM: Unlabored breathing with decreased breath sounds at the base. No wheeze. HEART: S1, S2. Regular rate and rhythm. ABDOMEN: Soft. No tenderness. LABS: Hemoglobin is 11, white count 12.3, BUN of 13, creatinine 0.6. Procalcitonin is 25.87. DIAGNOSTIC IMPRESSION AND PLAN: Patient with elevated procalcitonin. However, the patient is clinically not behaving as pneumonia. CT of the chest did show some effusion and compressive atelectasis, but no consolidation suspicious for pneumonia. The patient does not have any cough or sputum production and is currently on room air. pneumonia and empiric Zosyn may be discontinued. Will monitor the patient closely off antibiotic therapy and continue supportive care. MMODL / IJN: [id number] /
[2020-12-30] MEDS: PIPERACILLIN-TAZOBACTAM 3.375 GM in SODIUM CHLORIDE 0.9% 100 ML IVPB SCH ×2 (04:03→12:18)
[2020-12-30 04:28] VITALS: BP 149/79; PULSE 120; RESP 18
--- NOTE | 2020-12-30 08:17 | P.PN ---
Subjective This is a pleasant 70 years old female who was transferred from [facility] for hypercalcemia and left and right rib fracture and metastatic bone lesions suspected. When I saw the patient today she just came from her bone biopsy and she was sleeping and she could not provide information that was obtained from staff and records Looks like patient was complaining of from some chest tightness and workup showed some subcentimeter pulmonary nodules. Also she's been complaining of from some urinary symptoms and urgency, urinalysis is suspicious for infection therefore urine culture is requested and ceftriaxone was started. CEA-125 increased to, CT of the brain is negative for acute process. Chest x- ray showed bilateral atelectasis versus infiltrate Bone scan showing right mid ribs and left ribs lytic lesions coincided with soft tissue masses on CAT scan. Multiple lesions of the calvarium and left hip and multiple myeloma suspected per radiologist CT of the abdomen and pelvis and chest without contrast showed multiple pulmonary nodules, T5 and T10 lucencies and 1.5 cm lytic lesions in the left iliac bone Currently calcium is 12. And she is on pamidronate drip as well as normal splint 100 mL per hour and ceftriaxone as above 12/25/2020 Patient is confused today although she is awake and alert, she is drowsy but she will wake up easily and she can stay up. She complains from some mild pain in the hip areas. She denies chest pain or abdominal pain. Patient is poor historian today. She could not tell if she has urinary symptoms or pulmonary symptoms. Her labs from today are pending. Yesterday she had a CT of the bone with biopsy, there was an incidental finding of a right ovarian mass, [facility] team were consulted Patient remains on D5 normal saline at 75 mL/h, pamidronate drip and ceftriaxone for suspected UTI 12/26/2020 For the third day patient remains very drowsy, she is minimally interactive with my encounter. I tried to wake her up several times, she'll open her eyes and answer 1 or 2 questions for me and then go back to sleep. However patient can say she is in hospital and that she is sick with her bone disease. She was complaining of from pain in her chest and rib area, both sides right and left also on the left groin area/flank area. Patient was noticed takes several medications including Xanax, fentanyl, Percocet. And Dilaudid. Most of Xanax and Dilaudid, Fentanyl and Percocet and keep monitoring and reassess her pain level and alertness. She has CAT scan without contrast today showing lytic lesions involving the anterior margin of the pubic rami bilaterally with pathological fracture involving the right superior pubic ramus, minimally displaced Urine culture showing no growth, subtraction was stopped. Check procalcitonin 12/27/20 Patient is more awake and alert today after stopping the Dilaudid Xanax. She's been complaining of from little pain in the middle of her back and little pain in her ribs. Also with mild pain on the sides, left flank area more than right. Patient is seen in bed most of the time. But she is complaining of from the total exertional dyspnea so we'll repeat chest x-ray. Also she has increased frequency, UTI is suspected and currently she is on an tibiotic. Chest x-ray: Bilateral pleural mass/thickening/loculated pleural fluid. Probable right lower lobe atelectasis. No evidence of acute CHF, patient has no fever, she has mild leukocytosis and Pro-consult on him is elevated at 27. Because of this was started the patient on Zosyn and we'll consult ID team. 12/28/20 Patient is fully awake and oriented, lying in bed with minimal pain, she states improving pain in her pelvic area, rib area and back. Her dyspnea is also better. No chest pain still have some cough. She was working for the bone biopsy result however she was complaining of from some exertional dyspnea and throatcalcitonin was found elevated at 27. Patient was started on Zosyn. Repeat chest x-ray from today showing Bilateral pleural mass/thickening/loculated pleural fluid. Probable right lower lobe atelectasis. No evidence of acute CHF. CT of the chest without contrast is ordered tomorrow. Check labs tomorrow. Patient is slightly tachycardic related to her sepsis and cholecystitis.EKG is ordered Orthopedic team they consider MRI of the hip. We'll defer decision to them and for physical therapy. 12/29/2020 This is a pleasant 70 years old female who was transferred from [facility] for hypercalcemia and metastatic bone lesions and multiple subcen timeter pulmonary nodules. She has bone biopsy done to the left iliac bone with results showing diff erentiated/poorly differentiated high-grade malignant neoplasm. Hematology/oncology team on case and then following the patient closely. It looks like study for bone biopsy was sent to [facility] for further evaluation. The patient was placed on Zosyn for high pro-calcitonin, and suspicion of pneumonia. CT of the chest: small to tiny bilateral pleural effusion and/or fluid collections associated with the mild to moderate basilar compressive atelectasis/infiltrate. Infectious disease team on the case Objective - Vital Signs Vital signs: Vital Signs Temp 97.9 F 12/29/20 13:05 Pulse 99 12/29/20 13:05 Resp 18 12/29/20 13:05 BP 130/72 12/29/20 13:05 Pulse Ox 98 12/29/20 13:05 Intake & Output 12/28/20 12/29/20 12/29/20 18:59 06:59 18:59 Intake Total 2530 1180 Output Total 700 600 Balance 1830 580 Weight 74.843 kg Intake: Intake, IV Titration 1000 Amount Dextrose 5%-0.9% NaCl 1, 900 000 ml @ 75 mls/hr IV . [id number] [facility] Rx#:[id number] Piperacillin-Tazobactam 3 100 .375 gm In Sodium Chloride 0.9% 100 ml @ 200 mls/hr IVPB ONCE STA Rx#:[id number] Oral 1530 1180 Output: Urine 700 600 Other: Voiding Method Bedside Commode Bedside Commode Bedside Commode External Catheter External Catheter # Voids 3 3 2 # Bowel Movements 2 1 1 - Exam -GENERAL: he patient is alert but confused, answers some questions appropriately but most of the time she answers differently, not in any acute distress. Obese HEENT: Pupils are round and equally reacting to light. EOMI. No scleral icterus. No conjunctival pallor. Normocephalic, atraumatic. No pharyngeal erythema. No thyromegaly. CARDIOVASCULAR: S1 and S2 present. No murmurs, rubs, or gallops. PULMONARY: Chest is clear to auscultation, no wheezing or crackles. ABDOMEN: Soft, nontender, nondistended, normoactive bowel sounds. No palpable organomegaly. MUSCULOSKELETAL: No joint swelling or deformity. EXTREMITIES: No cyanosis, clubbing, or pedal edema. NEUROLOGICAL: Gross neurological examination did not reveal any focal deficits. SKIN: No rashes. no petechiae. - Labs CBC & Chem 7: 12/29/20 05:24 12/29/20 05:24 Labs: Abnormal Lab Results - Last 24 Hours (Table) 12/29/20 12/29/20 12/29/20 Range/Units 05:24 05:24 05:24 WBC 12.3 H (3.8-10.6) k/uL Hgb 11.0 L (11.4-16.0) gm/dL Hct 32.7 L (34.0-46.0) % Neutrophils # 9.4 H (1.3-7.7) k/uL BUN/Creatinine Ratio 21.67 H (12.00-20.00) Ratio Glucose 119 H (70-110) mg/dL Calcium 8.1 L (8.7-10.3) mg/dL Procalcitonin 25.87 H (0.02-0.09) ng/mL Assessment and Plan Assessment: Metastatic bone lesion is suspected on bone scan with hypercalcemia. Patient with right and left triple tic lesions, multiple lesions on the calvarium and left hip. Also T5 and T9. Bilateral lytic lesions of the pubic rami with pathological fracture on the right superior pubic ramus, minimally displaced Right loculated pneumonia with elevated procalcitonin Right ovarian mass (per Dr. Moreno, she does not believe that's ovarian mass responsible for renal metastatic disease, and recommended outpatient follow-up ) Metabolic encephalopathy. Completely resolved Multiple subcentimeter pulmonary nodule Acute urinary tract infection Obesity with BMI of 31.2 Plan: This is a pleasant 70 years old female who presents with multiple bone lytic lesions suspicious for metastases and hypercalcemia , improved normal saline , pain management Follow-up biopsy of the bone done on 12/24 Follow-up radiation oncology Chrissie Bolton, follow-up with ID team Hematology/oncology team on the case Follow-up CT of the chest Labs and medication were reviewed.. Continue same treatment. Continue with symptomatic treatment. Resume home medication. Monitor lytes and vitals. DVT and GI prophylaxis. Further recommendationsas per clinical course of the patient DVT prophylaxis: Subcutaneous heparin GI Prophylaxis: Pepcid PT/OT: Pending Prognosis is guarded
[2020-12-30] MEDS: ENOXAPARIN 40 MG/0.4 ML SYRINGE SQ SCH (08:28)
[2020-12-30] MEDS: SENNOSIDES-DOCUSATE SODIUM 1 EACH TAB PO SCH ×2 (08:28→08:29)
[2020-12-30] MEDS: PANTOPRAZOLE 40 MG TABLET PO SCH (08:28)
[2020-12-30] MEDS: oxyCODONE-APAP 7.5-325MG 1 EACH TAB PO PRN (11:02)
--- NOTE | 2020-12-30 11:26 | PN ---
PROGRESS NOTE DATE OF SERVICE: 12/30/2020 REASON FOR FOLLOWUP: Possible pneumonia. INTERVAL HISTORY: The patient is currently afebrile. Patient is breathing comfortably. The patient is currently on room air. Patient denies having any chest pain or shortness of breath. Occasional cough. No abdominal pain or diarrhea. PHYSICAL EXAMINATION: Blood pressure 149/79 with a pulse of 120, temperature 98.5. She is 91% on room air. General description is an elderly female up in the chair in no distress. RESPIRATORY SYSTEM: Unlabored breathing, decreased intensity of breath sounds, no wheeze. HEART: S1, S2. Regular rate and rhythm. ABDOMEN: Soft, no tenderness. LABS: Hemoglobin 11, white count 12.3, BUN of 13, creatinine 0.6 as of yesterday. No blood work has been done today. Urine is negative. DIAGNOSTIC IMPRESSION AND PLAN: Patient with abnormal procalcitonin, however, the patient is clinically not behaving as pneumonia. Chest CT consolidation or loculated fluid. She is on Zosyn, may transition to course of oral Augmentin on discharge and close outpatient followup. Continue supportive care. Family at the bedside. Their questions were answered. MMODL / IJN: [id number] /
--- NOTE | 2020-12-30 14:24 | P.PN ---
Subjective Progress Note Date: 12/30/20 Principal diagnosis: intractable pain related to malignancy, hypercalcemia of malignancy Pt is doing ok today, she continues on XRT and getting ready to go down now. Pain meds are providing adequate relief, she has had a BM. She is requiring assistance to get around. 10 point review of systems is otherwise negative Objective - Vital Signs Vital signs: Vital Signs Temp 98.5 F 12/30/20 04:27 Pulse 120 H 12/30/20 04:27 Resp 18 12/30/20 04:27 BP 149/79 12/30/20 04:27 Pulse Ox 91 L 12/30/20 04:27 Intake & Output 12/29/20 12/30/20 12/30/20 18:59 06:59 18:59 Weight 74.843 kg Other: Voiding Method Bedside Commode Bedside Commode Bedside Commode # Voids 1 3 # Bowel Movements 1 2 - Constitutional General appearance: Present: cooperative, no acute distress, obese - EENT Eyes: Present: anicteric sclerae, EOMI ENT: Present: hearing grossly normal - Respiratory Respiratory: bilateral: CTA - Cardiovascular Heart sounds: normal: S1, S2 - Peripheral edema leg Peripheral Edema: bilateral: Trace - Gastrointestinal General gastrointestinal: Present: soft - Musculoskeletal Musculoskeletal: Present: generalized weakness, strength equal bilaterally - Psychiatric Psychiatric: Present: A&O x's 3, appropriate affect, intact judgment & insight - Labs CBC & Chem 7: 12/29/20 05:24 12/29/20 05:24 - Imaging and Cardiology CT scan - chest: report reviewed Assessment and Plan (1) Metastatic disease Narrative/Plan: Bone biopsy specimen has been sent to [facility] for further studies, no primary source readily identifiable on the pathology. Based on malignancy primary, treatment recommendations can then be discussed. Patient encouraged to participate in physical therapy to improve performance status so, if she decides to pursue systemic therapy she will be in shape for the same. This was all reviewed with pt and daughter F/U with Dr. Calderon in 2 weeks Status: Acute Priority: High Code(s): C79.9 - SECONDARY MALIGNANT NEOPLASM OF UNSPECIFIED SITE SNOMED Code(s): 137169820 (2) Cancer associated pain Narrative/Plan: Radiation started. Current pain medications adequate. Home care ordered, assess for services, plan for PT/OT at home Prevention of narcotic induced constipation reviewed Start talking form and MAPS completed. Pt will complete same documents when seen in ofc including pt/provider contract. Status: Acute Priority: High Code(s): G89.3 - NEOPLASM RELATED PAIN (ACUTE) (CHRONIC) SNOMED Code(s): 54669611272446 (3) Hypercalcemia Narrative/Plan: 09/30 mailgnancy, calcium level improved status post dose of aredia 12/23. Bisphosphonate or rank ligand inhibitor therapy will be ongoing. Status: Acute Priority: High Code(s): E83.52 - HYPERCALCEMIA SNOMED Code(s): 79829428 Plan: Reviewed everything in detail with daughter. Pt and daughter understand plan of care. F/U outpt
--- NOTE | 2020-12-31 09:00 | P.DS ---
Providers Date of admission: 12/21/20 23:11 Expected date of discharge: 12/30/20 Attending physician: Aleksey Toro Consults: 12/21/20 23:09 Consult Physician Routine Consulting Provider: Oc Calderon Consult Reason/Comments: ca Do you want consulting provider notified?: Yes 12/24/20 13:48 Consult Physician Routine Consulting Provider: Sampson Deluca Consult Reason/Comments: bone cancer, need wt bearing specifications Do you want consulting provider notified?: Already Contacted 12/24/20 18:59 Consult Physician Routine Consulting Provider: Eric Reyes Consult Reason/Comments: Palliaitive radiaiton for pain, Right hip Do you want consulting provider notified?: Yes, Notify in am 12/27/20 17:19 Consult Physician Routine Consulting Provider: Ruma Urias Consult Reason/Comments: pneumonia Do you want consulting provider notified?: Yes Primary care physician: Stated None Hospital Course: Final diagnosis Metastatic bone lesion is suspected on bone scan with hypercalcemia. Patient with right and left triple tic lesions, multiple lesions on the calvarium and left hip. Also T5 and T9. Bilateral lytic lesions of the pubic rami with pathological fracture on the right superior pubic ramus, minimally displaced Right loculated pneumonia with elevated procalcitonin Right ovarian mass (per Dr. Moreno, she does not believe that's ovarian mass responsible for renal metastatic disease, and recommended outpatient follow-up ) Metabolic encephalopathy. Completely resolved Multiple subcentimeter pulmonary nodule Acute urinary tract infection Obesity with BMI of 31.2 GI prophylaxis DVT prophylaxis Discharge disposition Patient is being discharged in a stable condition with guarded prognosis to home and will continue with home care. Patient will follow-up with Dr. Anjelica Izaguirre in the outpatient setting upon discharge. Patient will also be following up with Dr. Calderon oncology and Dr. Reyes radiation oncology to complete the radiation treatments through this . Total time taken is greater than 35 minutes. Hospital Course This is a pleasant 70 years old female who was transferred from [facility] for hypercalcemia and left and right rib fracture and metastatic bone lesions suspected. When I saw the patient today she just came from her bone biopsy and she was sleeping and she could not provide information that was obtained from staff and records Looks like patient was complaining of from some chest tightness and workup showed some subcentimeter pulmonary nodules. Also she's been complaining of from some urinary symptoms and urgency, urinalysis is suspicious for infection therefore urine culture is requested and ceftriaxone was started. CEA-125 increased to, CT of the brain is negative for acute process. Chest x-ra y showed bilateral atelectasis versus infiltrate Bone scan showing right mid ribs and left ribs lytic lesions coincided with soft tissue masses on CAT scan. Multiple lesions of the calvarium and left hip and multiple myeloma suspected per radiologist CT of the abdomen and pelvis and chest without contrast showed multiple pulmonary nodules, T5 and T10 lucencies and 1.5 cm lytic lesions in the left iliac bone Currently calcium is 12. And she is on pamidronate drip as well as normal splint 100 mL per hour and ceftriaxone as above 12/25/2020 Patient is confused today although she is awake and alert, she is drowsy but she will wake up easily and she can stay up. She complains from some mild pain in the hip areas. She denies chest pain or abdominal pain. Patient is poor historian today. She could not tell if she has urinary symptoms or pulmonary symptoms. Her labs from today are pending. Yesterday she had a CT of the bone with biopsy, there was an incidental finding of a right ovarian mass, [employer] team were consulted Patient remains on D5 normal saline at 75 mL/h, pamidronate drip and ceftriaxone for suspected UTI 12/26/2020 For the third day patient remains very drowsy, she is minimally interactive with my encounter. I tried to wake her up several times, she'll open her eyes and answer 1 or 2 questions for me and then go back to sleep. However patient can say she is in hospital and that she is sick with her bone disease. She was complaining of from pain in her chest and rib area, both sides right and left also on the left groin area/flank area. Patient was noticed takes several medications including Xanax, fentanyl, Percocet. And Dilaudid. Most of Xanax and Dilaudid, Fentanyl and Percocet and keep monitoring and reassess her pain level and alertness. She has CAT scan without contrast today showing lytic lesions involving the anterior margin of the pubic rami bilaterally with pathological fracture involving the right superior pubic ramus, minimally displaced Urine culture showing no growth, subtraction was stopped. Check procalcitonin 12/27/20 Patient is more awake and alert today after stopping the Dilaudid Xanax. She's been complaining of from little pain in the middle of her back and little pain in her ribs. Also with mild pain on the sides, left flank area more than right. Patient is seen in bed most of the time. But she is complaining of from the total exertional dyspnea so we'll repeat chest x-ray. Also she has increased frequency, UTI is suspected and currently she is on antibiotic. Chest x-ray: Bilateral pleural mass/thickening/loculated pleural fluid. Probable right lower lobe atelectasis. No evidence of acute CHF, patient has no fever, she has mild leukocytosis and Pro-consult on him is elevated at 27. Because of this was started the patient on Zosyn and we'll consult ID team. 12/28/20 Patient is fully awake and oriented, lying in bed with minimal pain, she states improving pain in her pelvic area, rib area and back. Her dyspnea is also better. No chest pain still have some cough. She was working for the bone biopsy result however she was complaining of from some exertional dyspnea and throatcalcitonin was found elevated at 27. Patient was started on Zosyn. Repeat chest x-ray from today showing Bilateral pleural mass/thickening/loculated pleural fluid. Probable right lower lobe atelectasis. No evidence of acute CHF. CT of the chest without contrast is ordered tomorrow. Check labs tomorrow. Patient is slightly tachycardic related to her sepsis and cholecystitis.EKG is ordered Orthopedic team they consider MRI of the hip. We'll defer decision to them and for physical therapy. 12/29/2020 This is a pleasant 70 years old female who was transferred from [facility] for hypercalcemia and metastatic bone lesions and multiple subcentimeter pulmonary nodules. She has bone biopsy done to the left iliac bone with results showing differentiated/poorly differentiated high-grade malignant neoplasm. H ematology/oncology team on case and then following the patient closely. It looks like study for bone biopsy was sent to [facility] for further evaluation. The patient was placed on Zosyn for high pro-calcitonin, and suspicion of pneumonia. CT of the chest: small to tiny bilateral pleural effusion and/or fluid collections associated with the mild to moderate basilar compressive atele ctasis/infiltrate. Infectious disease team on the case 12/30/2020 Patient is seen and evaluated in follow-up and anticipating discharge after radiation treatment today. Family at the bedside with multiple questions and awaiting oncology to evaluate the patient. She will follow-up with oncology outpatient along with radiation oncology as she is receiving radiation treatments today and this week. Patient will be going home with daughter who will be caring for her. She will continue with oral antibiotics as discussed and prescribed upon discharge to complete the course. Currently no reports of chest pain, shortness of breath, or palpitations. Patient is afebrile. No reports of nausea or vomiting and patient is tolerating diet. Patient will be discharged home today. Guarded prognosis. On exam vital signs are stable. Cardio S1, S2 are muffled. Respiratory system shows diminished breath sounds at the bases with no wheezing or rhonchi noted. Abdomen is soft and nontender. Nervous system shows no focal deficits. Please refer to medication reconciliation sheet for a list of medications. Patient Condition at Discharge: Fair Plan - Discharge Summary Discharge Rx Participant: No New Discharge Prescriptions: New Amoxicillin/Potassium Clav [Augmentin 875-125 Tablet] 1 tab PO BID 14 Days #28 tab Pantoprazole [Protonix] 40 mg PO AC-BRKFST #30 tablet.dr Lynne-Docusate Sodium [Senokot-S] 2 each PO BID PRN #10 tab PRN Reason: Constipation polyethylene glycoL 3350 [Miralax] 17 gm PO HS PRN #3 powd.pack PRN Reason: Constipation Discontinued Ibuprofen [Motrin Ib] 800 mg PO Q8H PRN PRN Reason: Pain Discharge Medication List Amoxicillin/Potassium Clav [Augmentin 875-125 Tablet] 1 tab PO BID 14 Days #28 tab 12/29/20 [Rx] Pantoprazole [Protonix] 40 mg PO AC-BRKFST #30 tablet. 12/29/20 [Rx] Sennosides-Docusate Sodium [Senokot-S] 2 each PO BID PRN #10 tab 12/29/20 [Rx] polyethylene glycoL 3350 [Miralax] 17 gm PO HS PRN #3 powd.pack 12/29/20 [Rx] Follow up Appointment(s)/Referral(s): [facility] [NON-STAFF] - 1 Week Anjelica Izaguirre MD [REFERRING] - As Needed (Orthopedic Oncologist if needed. Dr. Burroughs office will advise.) Oc Calderon MD [STAFF PHYSICIAN] - 2 Weeks (Dr. Burroughs office will call patient to schedule appt.) Eric Reyes MD [STAFF PHYSICIAN] - 12/31/20 12:00 pm (Radiation will continue on Tuesday and (12/31 and 01/01) at 12 noon. ) Patient Instructions/Handouts: Oxycodone/Acetaminophen (By mouth), Amoxicillin/Clavulanate Potassium (By mouth), Fentanyl (Absorbed through the skin), Pantoprazole (By mouth), Polyethylene Glycol 3350 (By mouth), Laxative, Stimulant Combination (By mouth) Activity/Diet/Wound Care/Special Instructions: Protected Weight Bearing of Left Lower Extremity with walker Dr. Burroughs office will let you know if follow up with Orthopedic Oncology is advised. Discharge Disposition: HOME WITH HOME HEALTH SERVICES
== END 2020-12-30 13:50 | disposition home health service (06) | DRG 477 ==
LOC: EC 21:51 → 5NMEDONC 23:11 → 1SOBS 12-22 08:01 → 5NMEDONC 12-25 16:05
PROVIDERS: ADMIT Hospitalist; ATTEND Hospitalist
PROC: 0QB33ZX Excision of Left Pelvic Bone, Percutaneous Approach, Diagnostic (ICD-10-PCS; principal; 2020-12-24)
DX: C79.51 Secondary malignant neoplasm of bone (principal); G93.41 Metabolic encephalopathy; A41.9 Sepsis, unspecified organism; J18.9 Pneumonia, unspecified organism; E87.1 Hypo-osmolality and hyponatremia; J90 Pleural effusion, not elsewhere classified; M84.48XA Pathological fracture, other site, initial encounter for fracture; C90.00 Multiple myeloma not having achieved remission; C56.9 Malignant neoplasm of unspecified ovary; N39.0 Urinary tract infection, site not specified; J98.11 Atelectasis; M84.454A Pathological fracture, pelvis, initial encounter for fracture; E46 Unspecified protein-calorie malnutrition; G89.3 Neoplasm related pain (acute) (chronic); E86.0 Dehydration; E83.52 Hypercalcemia; Z20.822 Contact with and (suspected) exposure to COVID-19; Z98.51 Tubal ligation status; M54.6 Pain in thoracic spine; Z85.43 Personal history of malignant neoplasm of ovary; E66.9 Obesity, unspecified; Z68.31 Body mass index [BMI] 31.0-31.9, adult; E83.42 Hypomagnesemia; E87.6 Hypokalemia; M25.552 Pain in left hip; M19.90 Unspecified osteoarthritis, unspecified site; R91.1 Solitary pulmonary nodule; K59.03 Drug induced constipation; T50.905A Adverse effect of unspecified drugs, medicaments and biological substances, initial encounter; Z82.3 Family history of stroke; K81.9 Cholecystitis, unspecified; Z74.01 Bed confinement status; N83.201 Unspecified ovarian cyst, right side; N39.498 Other specified urinary incontinence
CPT/HCPCS: 20220; 70450; 71045; 71250; 73521; 74176; 77012; 77280; 77290; 77307; 77334; 77412; 77417; 77470; 78306; 80048; 80053; 81001; 82784; 83735; 83883; 83970; 84100; 84132; 84145; 84165; 84443; 85025; 85610; 86304; 86334; 87086; 87635; 88307; 88341; 88342; 93005; 99285